=== PATIENT | male | born 1940 | race Caucasian/White ===

== ENCOUNTER → 2020-04-15 11:36 | Outpatient (CLI) | payer MEDICARE, OTHER, SELFPAY ==
--- NOTE | 2020-04-15 13:30 | STRESSREP ---
Stress Test Report Exercise stress test. 80-year-old male with a history of chest pain. Stress protocol: Resting EKG demonstrates sinus rhythm with a rate of 57 bpm and sinus arrhythmia. Resting blood pressure is 152/80 mmHg. The patient exercised according to regular Dev protocol for a total duration of 3 minutes and 10 seconds patient completed 10 seconds to stage II of the Dev protocol the maximum heart rate attained was 116 bpm which was 82% of max impacted heart rate the maximum workload was 4.8 metabolic equivalents. The test was terminated due to the patient not being able to keep up. The peak blood pressure was 178/82 mmHg which is a normal blood pressure response to exercise. Conclusion: Exercise stress test with no EKG criteria for ischemia at a low workload. The low workload may affect sensitivity for detection of ischemia. No arrhythmias noted.
== END ==
PROVIDERS: PCP Family Medicine; Referring Provider Family Medicine; Visit Provider Family Medicine
DX: R94.31 Abnormal electrocardiogram [ECG] [EKG] (principal); R00.1 Bradycardia, unspecified
CPT/HCPCS: 93017

== ENCOUNTER → 2021-11-26 | Outpatient (CLI) | payer MEDICARE, OTHER, SELFPAY ==
--- NOTE | 2021-11-26 13:02 | CT_ITS ---
STUDY: LOW DOSE CT LUNG CANCER SCREENING REASON FOR EXAM: Male, 81 years old. 65 pack-year history. RADIATION DOSAGE (If Supplied By Facility): CTDIvol = ( 2.01 ) mGy, DLP = ( 60.92 ) mGycm TECHNIQUE: No contrast was administered. Low dose technique was utilized (average mAS-38 and kVp 120). 1.25 mm axial source images with a slice interval of 1.25-mm were reconstructed in lung windows. 2.5 mm axial source images with a slice interval of 2.5-mm were reconstructed in lung windows. 5.0 mm axial source images with a slice interval of 5.0-mm were reconstructed in soft tissue windows. COMPARISON: Chest, 09/24/2021. NODULES: Total lung nodules (excluding granulomas): 0 Emphysema: Diffuse emphysematous changes lungs. Endobronchial lesion: None Aorta: Atherosclerotic changes without aneurysm. CORONARY ARTERIES: Coronary artery calcification moderate Heart: Normal Pulmonary artery: Normal Mediastinal nodes: Subcentimeter nonspecific mediastinal lymphadenopathy. Other chest and abdominal findings: Degenerative changes of the thoracic spine. CT/Low Dose CT Lung Screening IMPRESSION: Lung-RADS category 1 - Continue annual screening with LDCT in 12 months. IMPORTANT NOTES FOR USE: ACR Lung-RADS Version 1.1 Assessment Categories Release Date: 2018 Category: Coded 0-4 bases on nodule(s) with highest degree of suspicion. Negative screen is defined as categories 1 and 2; a positive screen is defined as categories 3 and 4. Category 3 and 4A nodules that are unchanged on interval CT should be coded as category 2, and individuals returned to screening in 12 months. Category 4X: Category 3 or 4 nodules with additional imaging findings that increase the suspicion of lung cancer, such as spiculation, GGN that doubles in size in 1 year, enlarged lymph notes, etc. Category Modifiers: S (significant finding unrelated to lung cancer) Electronically Signed: Uriel Copeland DO at 21:14 EDT Reading Location ID and State: [address] [place] [address] Tel [phone], Service support ,
== END | disposition home or self-care (01) ==
PROVIDERS: PCP Internal Medicine; Referring Provider Internal Medicine; Visit Provider Internal Medicine
DX: Z87.891 Personal history of nicotine dependence (principal)
CPT/HCPCS: 71271

== ENCOUNTER → 2022-03-23 | Outpatient (CLI) | payer MEDICARE, OTHER, SELFPAY | END | disposition home or self-care (01) | LOC: PSN 11:55 | PROVIDERS: PCP Internal Medicine; Referring Provider Internal Medicine; Visit Provider Internal Medicine | DX: I49.9 Cardiac arrhythmia, unspecified (principal) | CPT/HCPCS: 93225; 93226 ==

== ENCOUNTER → 2023-01-23 | Outpatient (CLI) | payer MEDICARE, OTHER, SELFPAY ==
--- NOTE | 2023-01-24 10:47 | PFT ---
INTRODUCTION: The patient is an 82-year-old male who presents for pulmonary function studies secondary to a diagnosis of abnormal lung function. Respiratory therapy reported good patient effort. Bronchodilators were used during testing. INTERPRETATION: Forced expiration spirometry demonstrates no evidence of a large airways obstructive ventilatory defect. There was no significant response to aerosolized bronchodilators. Spirograms are of good quality and plateau normally. Body plethysmography was performed and revealed lung volumes to be within normal limits. Diffusing capacity by single breath CO is mildly reduced at 63% of predicted. IMPRESSION: Isolated mild reduction in diffusing capacity.
== END | disposition home or self-care (01) ==
PROVIDERS: PCP Internal Medicine; Referring Provider Internal Medicine; Visit Provider Internal Medicine
DX: R94.2 Abnormal results of pulmonary function studies (principal); R00.1 Bradycardia, unspecified
CPT/HCPCS: 93225; 93226; 94060; 94726; 94729

== ENCOUNTER → 2023-01-26 | Outpatient (CLI) | payer MEDICARE, OTHER, SELFPAY ==
--- NOTE | 2023-01-26 13:42 | CT_ITS ---
STUDY: LOW DOSE CT LUNG CANCER SCREENING REASON FOR EXAM: Male, 82 years old. Smoker. Patient smoked 1 pack per day for 60 years. RADIATION DOSAGE (If Supplied By Facility): CTDIvol = ( 3.02 ) mGy, DLP = ( 104.20 ) mGycm TECHNIQUE: No contrast was administered. Low dose technique was utilized (average mAS-38 and kVp 120). 1.25 mm axial source images with a slice interval of 1.25-mm were reconstructed in lung windows. 2.5 mm axial source images with a slice interval of 2.5-mm were reconstructed in lung windows. 5.0 mm axial source images with a slice interval of 5.0-mm were reconstructed in soft tissue windows. COMPARISON: Comparison is made with prior study done November 26, 2021. NODULES: No suspicious nodule is seen. Emphysema: Stable emphysematous changes. Endobronchial lesion: None Aorta: Atherosclerotic plaque formation. CORONARY ARTERIES: Coronary artery calcification is seen. Heart: Unremarkable Pulmonary artery: Mediastinal nodes: Small mediastinal lymph nodes. Other chest and abdominal findings: CT/Low Dose CT Lung Screening IMPRESSION: Lung-RADS category 2 - Continue annual screening with LDCT in 12 months. IMPORTANT NOTES FOR USE: ACR Lung-RADS Version 1.1 Assessment Categories Release Date: 2018 Category: Coded 0-4 bases on nodule(s) with highest degree of suspicion. Negative screen is defined as categories 1 and 2; a positive screen is defined as categories 3 and 4. Category 3 and 4A nodules that are unchanged on interval CT should be coded as category 2, and individuals returned to screening in 12 months. Category 4X: Category 3 or 4 nodules with additional imaging findings that increase the suspicion of lung cancer, such as spiculation, GGN that doubles in size in 1 year, enlarged lymph notes, etc. Category Modifiers: S (significant finding unrelated to lung cancer) Electronically Signed: Norbert Mednia MD at 15:07 EST ,
== END | disposition home or self-care (01) ==
PROVIDERS: PCP Internal Medicine; Referring Provider Internal Medicine; Visit Provider Internal Medicine
DX: R94.2 Abnormal results of pulmonary function studies (principal); R00.1 Bradycardia, unspecified; F17.210 Nicotine dependence, cigarettes, uncomplicated
CPT/HCPCS: 71271

== ENCOUNTER → 2023-04-05 | Outpatient (CLI) | payer MEDICARE, OTHER, SELFPAY ==
--- OUTSIDE RECORDS SUMMARY | 2023-04-05 07:21 | XMS RPT_ITS | CCD ---
Author Name Unknown Address [address] [place] [address] Organization [facility] Care Team Providers Care Rail Filler Name Role Phone Timmy Henderson MD Primary Care Provider Fast DO, Suzi A Unavailable Melly Glez CMA Unavailable Unavailable Unavailable Unavailable Fast DO, Suzi A Attending Unavailable Fast DO, Suzi A Consulting Unavailable Fast DO, Suzi A Unavailable Breanna Justice MA Unavailable Unavailable Timmy Henderson MD Primary Care Provider BRITTANY HALE Attending Unavailable TIMMY HENDERSON Referring Unavailab TIMMY Joe Primary Care Unavailab le BRITTANY HALE Attending Unavailable TIMMY HENDERSON Referring Unavailab le TIMMY HENDERSON Primary Care Unavailab le BRITTANY HALE Attending Unavailable TIMMY HENDERSON Referring Unavailab le TIMMY HENDERSON Primary Care Unavailab le TIMMY HENDERSON Primary Care Unavailab le TIMMY HENDERSON Referring Unavailab TIMMY Joe Primary Care Unavailab TIMMY Joe Attending Unavailab BRITTANY Sneed Attending Unavailable TIMMY HENDERSON Referring Unavailab le TIMMY HENDERSON Primary Care Unavailab le BRITTANY HALE Attending Unavailable TIMMY HENDERSON Referring Unavailab le TIMMY HENDERSON Primary Care Unavailab le Unavailable Unavailable Fast DO, Suzi A Primary Care Provider [phone] FAST, SUZI A Referring Unavailable FAST, SUZI A Primary Care Unavailable Allergies Allergy Classification Reported Allergen(s) Allergy Type Date of Onset Reaction(s) Facility (8 sources) Codeine; Translations: [CODEINE] Drug Allergy 11-19-2004 [facility] Work Phone: (20 sources) Penicillins; Translations: [Penicillins] Propensity to adverse reactions 11-19-2004 Hives [facility] Work Phone: Medications Current Medications Medication Drug Class(es) Dates Sig (Normalized) Sig (Original) tadalafil 5 mg oral tablet (15 sources) Phosphodiesterase 5 Inhibitor Start: 10-24-2022 take 1 tablet by mouth once daily Cialis 5 mg oral tablet 1 (one) Tablet qd for 0 days Quantity: 30 {Tablet} Refills: 3 Ordered: 24-Oct-2022 Fast DO, Suzi A Fast DO, Suzi A Start : 24-Oct-2022 Active Completed/Discontinued Medications Medication Drug Class(es) Dates Sig (Normalized) Sig (Original) atorvastatin 40 mg oral tablet (20 sources) HMG-CoA Reductase Inhibitor Start: 09-20-2022 take 1 tablet by mouth once daily atorvastatin 40 mg oral tablet 1 (one) Tablet qd for 90 days Quantity: 90 {Tablet} Refills: 3 Ordered: 20-Sep-2022 Fast DO, Suzi A Fast DO, Suzi A Start : 20-Sep-2022 Active Problems Active Problems Problem Classification Problem Date Documented Da te Episodic/Chronic Cardiac dysrhythmias (20 sources) Cardiac arrhythmia; Translations: [Arrhythmia] 11-17-2021 Chronic Past or Other Problems Problem Classification Problem Date Documented Da te Episodic/Chronic Gastrointestinal hemorrhage (7 sources) Hematochezia; Translations: [Melena] Onset: 10-30-2007 10-30-2007 Episodic Other and unspecified benign neoplasm (7 sources) Benign neoplasm of colon; Translations: [Benign neoplasm of colon, unspecified] Onset: 11-08-2007 02-08-2021 Episodic Other non-traumatic joint disorders (1 source) Pain in left hip; Translations: [Acute hip pain, left] Onset: 08-02-2021 Episodic Other skin disorders (7 sources) Sebaceous cyst of skin; Translations: [Sebaceous cyst] Onset: 04-21-2011 04-21-2011 Episodic Results Test Name Value Interpretation Reference Range Facil ity Vital Signs Date Time Vital Sign Value Performing Clinician Facility 09-20-2022 09:59-0400 Body height 166.37 cm Suzi Gomez Fast DO Work Phone: [facility] Work Phone: 09-20-2022 09:59-0400 Body mass index (BMI) [Ratio] 28.35 kg/m2 Suzi Patricia Fast DO Work Phone: [facility] Work Phone: 09-20-2022 09:59-0400 Body surface area Derived from formula 1.87 m2 Suzi A Fast DO Work Phone: [facility] Work Phone: 09-20-2022 09:59-0400 Body temperature 97.9 [degF] Suzi Gomez Fast DO Work Phone: [facility] Work Phone: Encounters Encounter Date Encounter Type Care Provider Facility Start: 01-13-2023 End: 01-14-2023 ambulatory SUZI Patricia [facility] Start: 01-13-2023 End: 01-13-2023 Subsequent hospital visit by physician Calvin [address] Procedures Date Procedure Procedure Detail Performing Clinician Start: 01-13-2023 CT CARDIAC SCORING WO IV CONTRAST SUZI PEÑA Start: 01-13-2023 Ct heart no contrast quant eval coronry calcium Suzi Gomez Fast DO Work Phone: Start: 11-26-2021 End: 11-26-[address] Lung Screening Procedure Note: See Note; NOTES: [facility] Imaging Services [address] [place] [id number] Lung Screening MR#: [id number] Acct: [id number] Name: ORIANA BONILLA Rep #: [id number] : 1940 M 81 From: Uriel Copeland DO PCP: Dr. Suzi Peña DO Status: REG CLI Study: Low Dose CT Lung Screening Date of Exam: 11/26 Exam# [id number] Ordering Dr: Szui Peña DO STUDY: LOW DOSE CT LUNG CANCER SCREENING REASON FOR EXAM: Male, 81 years old. 65 pack-year history. RADIATION DOSAGE (If Supplied By Facility): CTDIvol = ( 2.01 ) mGy, DLP = ( 60.92 ) mGycm TECHNIQUE: No contrast was administered. Low dose technique was utilized (average mAS-38 and kVp 120). 1.25 mm axial source images with a slice interval of 1.25-mm were reconstructed in lung windows. 2.5 mm axial source images with a slice interval of 2.5-mm were reconstructed in lung windows. 5.0 mm axial source images with a slice interval of 5.0-mm were reconstructed in soft tissue windows. COMPARISON: Chest, 09/24/2021. NODULES: Total lung nodules (excluding granulomas): 0 Emphysema: Diffuse emphysematous changes lungs. Endobronchial lesion: None Aorta: Atherosclerotic changes without aneurysm. CORONARY ARTERIES: Coronary artery calcification moderate Heart: Normal Pulmonary artery: Normal Mediastinal nodes: Subcentimeter nonspecific mediastinal lymphadenopathy. Other chest and abdominal findings: Degenerative changes of the thoracic spine. CT/Low Dose CT Lung Screening IMPRESSION: Lung-RADS category 1 - Continue annual screening with LDCT in 12 months. IMPORTANT NOTES FOR USE: ACR Lung-RADS Version 1.1 Assessment Categories Release Date: 2018 Category: Coded 0-4 bases on nodule(s) with highest degree of suspicion. Negative screen is defined as categories 1 and 2; a positive screen is defined as categories 3 and 4. Category 3 and 4A nodules that are unchanged on interval CT should be coded as category 2, and individuals returned to screening in 12 months. Category 4X: Category 3 or 4 nodules with additional imaging findings that increase the suspicion of lung cancer, such as spiculation, GGN that doubles in size in 1 year, enlarged lymph notes, etc. Category Modifiers: S (significant finding unrelated to lung cancer) Electronically Signed: Uriel Copeland DO at 21:14 EDT Reading Location ID and State: [facility] / [place] Tel [phone], Service support , CC: Dr. Suzi Peña DO Truss Builder: Signed Suzi Peña DO Work Phone: Start: 09-24-2021 End: 09-24-2021 Chest PA and Lateral Procedure Note: See Note; NOTES: [facility] [address] [place] [address] Chest PA and Lateral MR#: [id number] Acct: [id number] Name: ORIANA BONILLA Rep #: [id number] : 1940 M 81 From: Radha Fernandez MD PCP: Dr. Tesfaye Henderson MD Status: DEP AMB Study: Chest PA and Lateral Date of Exam: 09/24/21 Exam# [id number] Ordering Dr: Suzi Peña DO STUDY: X-RAY CHEST REASON FOR EXAM: Male, 81 years old. COUGH TECHNIQUE: Frontal and lateral views of the chest. COMPARISON: None. FINDINGS: The lungs are hyperinflated. Normal size heart. Normal mediastinum and mary. Normal visualized pulmonary arteries. There is atherosclerotic calcification of the aortic arch with tortuosity. There are diffuse degenerative changes of the visualized thoracic spine. Normal visualized ribs, clavicles, and shoulders. There is no demonstrated abnormality of the visualized soft tissue structures of the upper abdomen. RAD/Chest PA and Lateral IMPRESSION: Hyperinflated lungs. Electronically Signed: Radha Fernandez MD at 14:25 EDT , CC: Dr. Tesfaye Henderson MD; Dr. Suzi Peña DO Truss Builder: Signed Suzi Peña DO Work Phone: Start: 04-04-2020 Adult depression screening assessment Timmy Henderson MD Work Phone: cataract surgery bilateral 2019- Dr Brett Gomez Fast DO Work Phone: cataract surgery bilateral 2019- Dr Brett Glez CMA cataract surgery bilateral 2019- Dr Brett Glez CMA cataract surgery bilateral 2019- Dr Brett Justice MA cataract surgery bilateral 2019- Dr Brett Glez CMA right carpal tunnel release Suzi Gomez Fast DO Work Phone: right carpal tunnel release Melly Manchak CLINICAL DATA MANAGEMENT MANAGER right carpal tunnel release Melly Manchak CLINICAL DATA MANAGEMENT MANAGER right carpal tunnel release Breanna Justice MA right carpal tunnel release Melly Manchak CLINICAL DATA MANAGEMENT MANAGER Plan of Treatment Date Care Activity Detail Author Start: 03-08-2028 Urine microalbumin profile DTAP,TDAP,TD (2 - Td or Tdap) [facility] Start: 04-12-2024 DIABETES SCREEN DIABETES SCREEN [facility] Start: 10-14-2022 Influenza vaccination [facility] Start: 09-20-2022 Procedure Education Eprescribed prescriptions (G8553) [facility] Work Phone: Start: 09-20-2022 Urnls dip stick/tablet reagent auto microscopy URINALYSIS, W/ MICRO (12097) [facility]; [facility] Work Phone: Start: 09-20-2022 Blood count complete auto&auto difrntl wbc CBC W/AUTO DIFF WBC (80092) [facility]; [facility] Work Phone: Start: 09-20-2022 Comprehensive metabolic panel METABOLIC PANEL, COMPREHENSIVE (47607) [facility]; [facility] Work Phone: Start: 09-20-2022 Assay of prostate specific antigen total PSA (PROSTATE SPECIFIC ANTIGEN) (V76.44) [facility]; [facility] Work Phone: Start: 06-20-2022 Procedure Education Eprescribed prescriptions (G8553) [facility]; [facility] Work Phone: Start: 06-20-2022 Assay of thyroid stimulating hormone tsh TSH (55269) [facility]; [facility] Work Phone: Start: 06-20-2022 C-reactive protein high sensitivity C-REACT PROT HIGH SENS(hsCRP) (38844) [facility]; [facility] Work Phone: Start: 06-20-2022 Lipid panel LIPID PANEL (37193) [facility] Work Phone: Start: 06-20-2022 Blood count complete auto&auto difrntl wbc CBC with auto diff (05858) [facility]; [facility] Work Phone: Start: 06-20-2022 Urine albumin quantitative MICROALBUMIN: CREATININE RATIO (11294) AND (92164) [facility]; [facility] Work Phone: Start: 06-20-2022 Comprehensive metabolic panel METABOLIC PANEL, COMPREHENSIVE (71150) [facility]; [facility] Work Phone: Start: 06-20-2022 Hemoglobin glycosylated a1c HGB A1C (70383) [facility]; [facility] Work Phone: Start: 03-10-2022 Hemoglobin glycosylated a1c HGB A1C (36511) [facility]; [facility] Work Phone: Start: 03-10-2022 Lipid panel LIPID PANEL (93660) [facility] Work Phone: Start: 03-10-2022 Urnls dip stick/tablet reagent auto microscopy URINALYSIS, W/ MICRO (01118) [facility]; [facility] Work Phone: Start: 03-10-2022 Blood count complete auto&auto difrntl wbc CBC W/AUTO DIFF WBC (28390) [facility]; [facility] Work Phone: Start: 03-10-2022 Comprehensive metabolic panel METABOLIC PANEL, COMPREHENSIVE (53763) [facility]; [facility] Work Phone: Start: 03-07-2022 Procedure Education Eprescribed prescriptions (G8553) [facility]; [facility] Work Phone: Start: 02-13-2022 ADVANCE DIRECTIVE DISCUSSION ADVANCE DIRECTIVE DISCUSSION [facility] Start: 02-13-2022 DEPRESSION ASSESSMENT DEPRESSION ASSESSMENT [facility] Start: 11-17-2021 Assay of free thyroxine T4, FREE (THYROXINE) (30753) [facility]; [facility] Work Phone: Start: 11-17-2021 Assay of triiodothyronine t3 free FREE TRIIDOTHYRONINE (T3) (86934) [facility]; [facility] Work Phone: Start: 11-17-2021 Assay of thyroid stimulating hormone tsh TSH (40032) [facility]; [facility] Work Phone: Start: 11-17-2021 Sedimentation rate rbc non-automated SED RATE ERYTHROCYTE (01225) [facility]; [facility] Work Phone: Start: 11-17-2021 C-reactive protein C-REACTIVE PROTEIN (88777) [facility]; [facility] Work Phone: Start: 11-17-2021 Procedure Education Eprescribed prescriptions (G8553) [facility]; [facility] Work Phone: Start: 10-14-2021 Influenza vaccination [facility] Start: 09-24-2021 Procedure Education Eprescribed prescriptions (G8553) [facility]; [facility] Work Phone: Start: 04-04-2021 Adult depression screening assessment DEPRESSION SCREENING [facility] Start: 02-13-2021 ADVANCE DIRECTIVE DISCUSSION ADVANCE DIRECTIVE DISCUSSION [facility] Start: 06-24-2011 Pneumococcal Vaccine: 65+ Years (2 - PCV) Pneumococcal Vaccine: 65+ Years (2 - PCV) [facility] Start: 06-24-2011 PNEUMOCOCCAL: 65+ (2 - PCV) PNEUMOCOCCAL: 65+ (2 - PCV) [facility] Start: 1991 SHINGRIX VACCINE (1 of 2) SHINGRIX VACCINE (1 of 2) [facility] Start: 1991 Zoster Vaccines (1 of 2) Zoster Vaccines (1 of 2) [facility] Start: 1963 DTaP/Tdap/Td Vaccines (1 - Tdap) DTaP/Tdap/Td Vaccines (1 - Tdap) [facility] Start: 1940 COVID-19 Vaccine (#1) COVID-19 Vaccine (#1) [facility] Start: 1940 Lipid panel Lipid Panel [facility] Start: 1940 Medicare Annual Wellness Visit Medicare Annual Wellness Visit (AWV) [facility] End: 01-13-2023 CT for calcium scoring WO contrast and CTA W contrast IV Heart and coronary arteries [facility] Service Area Work Phone: Immunizations Immunization Date Immunization Notes Care Provider Fa cili 06-23-2010 pneumococcal conjuga te vaccine, 13 valent Suzi Fast DO Work Phone: [facility]; [facility] Work Phone: Payers Date Payer Category Payer Private Health Insurance [employer]I [employer] MEDICARE SUPPLEMENT [id number] 2017-Present [phone] [address] [place] [address] Indemnity [id number] 2017 Private Health Insurance [id number] 2017 Private Health Insurance [employer]I MARAV[employer]A MEDICARE SUPPLEMENT [id number] 2017-Present [phone] [address] [place] [address] Indemnity [id number] 2006 Medicare MEDICARE MEDICAR E A AND B [id number] 2006-Present [phone] [address] [address] [place] [address] Medicare [id number] 2006 Medicare [id number] 2006 Medicare [id number] 1940 Unknown [id number] 1940 Unknown [id number] Unknown Social History Date Type Detail Facility Start: 03-16-1953 Tobacco smoking status NHIS Smokes tobacco daily [facility] Start: 03-16-1953 History of tobacco use Cigarette Smoker [facility] Start: 03-16-1953 History of tobacco use Pipe Smoker [facility] Start: 07-21-2021 Alcohol intake Current drinker of alcohol (finding) [facility] Start: 04-05-2020 History SDOH Alcohol Frequency 2 [facility] Start: 04-05-2020 History SDOH Alcohol Std Drinks 1 [facility] Start: 03-08-2018 History SDOH Alcohol Comment rarely [facility] Start: 04-05-2020 History SDOH Social Connections Phone 3 [facility] Start: 04-04-2020 Education 14 [facility] Start: 1940 Sex Assigned At Male [facility] Start: 07-11-2021 End: 01-13-2023 Exposure to SARS-CoV-2 (event) Not sure [facility] Alcohol Use: Alcohol Use: [facility] Work Phone: Start: 04-01-2019 Caffeine Use Caffeine Use [facility] Work Phone: Clinical Notes 07-21-2021 to 06-22-2022 Caitlin Holt MA - 06/22/2022 3:36 PM Prema Hale, PT - 09/07/2021 6:54 AM Prema Hale, PT - 08/31/2021 4:37 PM Prema Hale, PT - 08/18/2021 3:24 PM EDT Note Date & Type Note Facility 06-22-2022 Note HNO ID: [id number] Author: Caitlin Holt MA Service: ? Author Type: Meeting Facilitator Type: Progress Notes Filed: 06/22/2022 3:37 PM Note Text: POPULATION HEALTH NAVIGATION OUTREACH Action/FYI pcp field updated, found in care everywhere Patient Identified by Name and : NO Outreach Outcome/Action PCP field updated Did you use a PCP flex slot to schedule this appointment? N/A Reason for Outreach Attribution: Provider Off-boarding Payer: Payor: MEDICARE / Plan: MEDICARE A AND B / Product Type: Medicare / Care Gap Reviewed:: Annual Wellness visit Reminder: Reminder note to check Health Maintenance for items below Health Maintenance items due: SHINGRIX VACCINE(1 of 2) Never done PNEUMOCOCCAL: 65+(2 - PCV) due on 06/24/2011 ADVANCE DIRECTIVE DISCUSSION Never done DEPRESSION ASSESSMENT Never done Navigation Signature: Caitlin Holt MA June 22, 2022 3:36 PM [facility] 06-22-2022 History of Present illness Narrative POPULATION HEALTH NAVIGATION OUTREACH Action/ pcp field updated, found in care everywhere Patient Identified by Name and : NO Outreach Outcome/Action PCP field updated Did you use a PCP flex slot to schedule this appointment? N/A Reason for Outreach Attribution: Provider Off-boarding Payer: Payor: MEDICARE / Plan: MEDICARE A AND B / Product Type: Medicare / Care Gap Reviewed:: Annual Wellness visit Reminder: Reminder note to check Health Maintenance for items below Health Maintenance items due: SHINGRIX VACCINE(1 of 2) Never done PNEUMOCOCCAL: 65+(2 - PCV) due on 06/24/2011 ADVANCE DIRECTIVE DISCUSSION Never done DEPRESSION ASSESSMENT Never done Navigation Signature: Caitlin Holt MA June 22, 2022 3:36 PM documented in this encounter [facility] 06-22-2022 Note Patient Outreach (RANDELL TNAV) ORIANA BONILLA ([id number]) 1940 M Date Time Provider Department 06/22/22 CAITLIN HOLT During your visit today, we recorded the following information about you: Caitlin Holt MA 06/22/2022 3:37 PM Signed POPULATION HEALTH NAVIGATION OUTREACH Action/FYI pcp field updated, found in care everywhere Patient Identified by Name and : NO Outreach Outcome/Action PCP field updated Did you use a PCP flex slot to schedule this appointment? N/A Reason for Outreach Attribution: Provider Off-boarding Payer: Payor: MEDICARE / Plan: MEDICARE A AND B / Product Type: Medicare / Care Gap Reviewed:: Annual Wellness visit Reminder: Reminder note to check Health Maintenance for items below Health Maintenance items due: SHINGRIX VACCINE(1 of 2) Never done PNEUMOCOCCAL: 65+(2 - PCV) due on 06/24/2011 ADVANCE DIRECTIVE DISCUSSION Never done DEPRESSION ASSESSMENT Never done Navigation Signature: Caitlin Holt MA June 22, 2022 3:36 PM Allergies As of Date: 06/22/2022 Noted Allergy Reaction CODEINE 11/19/2004 Comments: flushed PENICILLINS 11/19/2004 4 - Hives Date Reviewed: 07/21/2021 Reviewed by: Ashlee Nicholas Ma - Fully Assessed Reason for Visit: Population Health Navigation Outreach [3910] Cmt: ACO No PCP list Prescriptions as of 06/22/2022 - glucosamine HCl/chondroitin conde (GLUCOSAMINE-CHONDROITIN ORAL) Take by mouth. - beta-carotene,A,-vits C,E/mins (EYE HEALTH ORAL) Take by mouth. [facility] - naproxen (NAPROSYN) 500 mg tablet Take 1 tablet by mouth twice daily as needed for pain. Take with food. - atorvastatin (LIPITOR) 40 mg tablet Take 1 tablet by mouth daily at bedtime. For cholesterol. - docosahexanoic acid/epa (FISH OIL ORAL) Take by mouth. - docusate sodium (STOOL SOFTENER ORAL) Take by mouth. - psyllium seed, with dextrose, (FIBER SUPPLEMENT ORAL) Take by mouth. Meds Comments as of 03/16/2018: Problem List As Of Date 06/22/2022 Noted Resolved MELENA, BLOOD IN STOOL [K92.1] 10/30/2007 Benign neoplasm of colon [D12.6] 11/08/2007 Sebaceous cyst [L72.3] 04/21/2011 Overweight (BMI 25.0-29.9) [E66.3] Hyperlipidemia [E78.5] Tobacco use [Z72.0] Acute hip pain, left [M25.552] 08/02/2021 09/07/2021 Encounter Status:Closed by CAITLIN OHLT on 06/22/22 [facility] 09-07-2021 Note HNO ID: [id number] Author: Brittany Hale, PT Service: ? Author Type: Physical Therapist Type: Progress Notes Filed: 09/07/2021 6:56 AM Note Text: Episode Visit Count: 5 Therapist That Will Oversee The Plan Of Care: Brittany Hale PT Start of Care Date: 08/02/21 Onset Date: 07/02/21 (has been off and on for 6 years) Plan of Care Certification Date: 08/02/21 Next Certification Due Date: 09/13/21 Patient Identified by Name and Date of : Yes [facility]ERAPY PHYSICAL THERAPY DISCONTINUANCE OF CARE PLAN OF CARE UPDATE: Assessment: Oriana Trip Bonilla is discontinued from Physical Therapy services due to goal achievement and maximal benefit.. Patient was seen for 5 visits from Start of Care Date: 08/02/21 to 09/07/2021 and treatment included: Therapeutic exercise, Self-prison management and Patient/Family/Caregiver Education. Goals for Episode of Care: created on 08/02/21 through 09/13/21 updated 09/06/21 [place] in home exercise program./ achieved Patient will decrease pain rating by 2 points to meet minimal clinical important difference for numeric pain rating scale./ achieved Patient will increase flexibility of hip flexor to WNL to improve mechanics and decrease pain. Perform sit to stand and walking with decreased report of symptoms/pain in 4 weeks./ achieved Increased strength of hip and core to improve overall hip mechanics / achieved Patient Goals: alleviate pain/ achieved SUBJECTIVE: Patient Reason for Visit: Pt notes that he has some pain in first couple of steps with walking. Still has pain if he walks alot. Usually pain lasts for awhile. Feels good when he goes to work. Pain: Pain Pain Level: 2 Pain Location: Hip - Left Description: Aching Frequency: Intermittent Post Treatment Pain Post Treatment Pain Level: No Change Post Treatment Pain Location: Hip - Left PROMIS Scales Higher is Better 04/04/2020 GH Physical - Score 50.8 GH Physical - Percentile 53 % GH Mental - Score Incomplete T-scores: mean of general population = 50. 5 points is clinically meaningfully difference Percentiles provide an indication of how the patient's score ranks in relation to the general population. Higher percentile rankings indicate better function/quality of life. 50th percentile is the average of the general population and indicates half of respondents had a worse score. T-scores: mean of general population = 50. 5 points is clinically meaningfully difference Percentiles provide an indication of how the patient's score ranks in relation to the general population. Higher percentile rankings indicate better function/quality of life. 50th percentile is the average of the general population and indicates half of respondents had a worse score. OBJECTIVE MEASURES WITH LEVEL OF FUNCTION: LE AROM L Hip Extension: 20 Degrees L Hip Flexion: 115 Degrees LE Flexibility L Hip Flexor Flexibility: 15 L IT Band Flexibility: mild tightness LE Strength Trunk Strength: 4+/5 L Hip Flexion (L2): 5/5 L Hip ABduction: 5/5 L Knee Extension (L3): 5/5 L Knee Flexion: 5/5 Functional Strength Functional Strength: pt able to complete stairs reciprocally Special Tests - Hip and Spine Adalberto's Test: (positive for tightness no pain) Gait Weight Bearing Status: FWB Gait Device: None Gait Observation: (no deviations) TREATMENT: Therapeutic Exercise: 1: standing hip flexor stretch ( gastroc stretch position) 15 sec hold x3 cues to step back with left for increased hip flexor stretch as needed 2: standing hip abduction left only 1x15 3: seated green rep band hip abduction 1x15 4: bridges 1x15 with TA 5: seated folded pillow hip adduction 1x15 6: standing hip flexion with knee extension 1x15 7: hooklying TA with marches 1x10 8: left step ups blue step 1x10 Skilled Intervention: Patient was educated in proper exercise technique and purpose for exercises. Skilled judgment was provided in selection of appropriate interventions. Correct performance of therapeutic exercises was facilitated with verbal and visual cuing. Home Exercise Program Assigned: 1: continue exs as tolerated Billing Therapeutic Exercise Treatment Minutes: 35 Total Treatment Time Minutes (timed/untimed): 35 Brittany Hale, PT [facility] 09-07-2021 History of Present illness Narrative Episode Visit Count: 5 Therapist That Will Oversee The Plan Of Care: Brittany Hale PT Start of Care Date: 08/02/21 Onset Date: 07/02/21 (has been off and on for 6 years) Plan of Care Certification Date: 08/02/21 Next Certification Due Date: 09/13/21 Patient Identified by Name and Date of : Yes REHABILITATION AND SPORTS THERAPY PHYSICAL THERAPY DISCONTINUANCE OF CARE PLAN OF CARE UPDATE: Assessment: Oriana Bonilla is discontinued from Physical Therapy services due to goal achievement and maximal benefit.. Patient was seen for 5 visits from Start of Care Date: 08/02/21 to 09/07/2021 and treatment included: Therapeutic exercise, Self-prison management and Patient/Family/Caregiver Education. Goals for Episode of Care: created on 08/02/21 through 09/13/21 updated 09/06/21 [place] in home exercise program./ achieved Patient will decrease pain rating by 2 points to meet minimal clinical important difference for numeric pain rating scale./ achieved Patient will increase flexibility of hip flexor to WNL to improve mechanics and decrease pain. Perform sit to stand and walking with decreased report of symptoms/pain in 4 weeks./ achieved Increased strength of hip and core to improve overall hip mechanics / achieved Patient Goals: alleviate pain/ achieved SUBJECTIVE: Patient Reason for Visit: Pt notes that he has some pain in first couple of steps with walking. Still has pain if he walks alot. Usually pain lasts for awhile. Feels good when he goes to work. Pain: Pain Pain Level: 2 Pain Location: Hip - Left Description: Aching Frequency: Intermittent Post Treatment Pain Post Treatment Pain Level: No Change Post Treatment Pain Location: Hip - Left PROMIS Scales Higher is Better 04/04/2020 GH Physical - Score 50.8 GH Physical - Percentile 53 % GH Mental - Score Incomplete T-scores: mean of general population = 50. 5 points is clinically meaningfully difference Percentiles provide an indication of how the patient's score ranks in relation to the general population. Higher percentile rankings indicate better function/quality of life. 50th percentile is the average of the general population and indicates half of respondents had a worse score. T-scores: mean of general population = 50. 5 points is clinically meaningfully difference Percentiles provide an indication of how the patient's score ranks in relation to the general population. Higher percentile rankings indicate better function/quality of life. 50th percentile is the average of the general population and indicates half of respondents had a worse score. OBJECTIVE MEASURES WITH LEVEL OF FUNCTION: LE AROM L Hip Extension: 20 Degrees L Hip Flexion: 115 Degrees LE Flexibility L Hip Flexor Flexibility: 15 L IT Band Flexibility: mild tightness LE Strength Trunk Strength: 4+/5 L Hip Flexion (L2): 5/5 L Hip ABduction: 5/5 L Knee Extension (L3): 5/5 L Knee Flexion: 5/5 Functional Strength Functional Strength: pt able to complete stairs reciprocally Special Tests - Hip and Spine Adalberto's Test: (positive for tightness no pain) Gait Weight Bearing Status: FWB Gait Device: None Gait Observation: (no deviations) TREATMENT: Therapeutic Exercise: 1: standing hip flexor stretch ( gastroc stretch position) 15 sec hold x3 cues to step back with left for increased hip flexor stretch as needed 2: standing hip abduction left only 1x15 3: seated green rep band hip abduction 1x15 4: bridges 1x15 with TA 5: seated folded pillow hip adduction 1x15 6: standing hip flexion with knee extension 1x15 7: hooklying TA with marches 1x10 8: left step ups blue step 1x10 Skilled Intervention: Patient was educated in proper exercise technique and purpose for exercises. Skilled judgment was provided in selection of appropriate interventions. Correct performance of therapeutic exercises was facilitated with verbal and visual cuing. Home Exercise Program Assigned: 1: continue exs as tolerated Billing Therapeutic Exercise Treatment Minutes: 35 Total Treatment Time Minutes (timed/untimed): 35 Brittany Hale PT documented in this encounter [facility] 08-31-2021 Note HNO ID: [id number] Author: Brittany Hale PT Service: ? Author Type: Physical Therapist Type: Progress Notes Filed: 08/31/2021 4:39 PM Note Text: Episode Visit Count: 4 Therapist That Will Oversee The Plan Of Care: Brittany Hale PT Start of Care Date: 08/02/21 Onset Date: 07/02/21 (has been off and on for 6 years) Plan of Care Certification Date: 08/02/21 Next Certification Due Date: 09/13/21 Patient Identified by Name and Date of : Yes REHABILITATION AND SPORTS THERAPY PHYSICAL THERAPY TREATMENT NOTE ASSESSMENT: Oriana Bonilla tolerated the session with no issues. He demonstrated improvements in stair climbing. . The patient will continue to benefit from ongoing skilled physical therapy to progress toward set goals. PLAN FOR NEXT VISIT: POC update SUBJECTIVE: Patient Reason for Visit: Pt notes that feels his hip is getting better. He notes that he has not had to take medication in the morning and has been doing ok. He has not had to take medication for about a week. Pain: Pain Pain Level: 2 Pain Location: Hip - Left Description: Aching Frequency: Intermittent Post Treatment Pain Post Treatment Pain Level: No Change Post Treatment Pain Location: Hip - Left OBJECTIVE MEASURES WITH LEVEL OF FUNCTION: TREATMENT: Therapeutic Exercise: 1: standing hip flexor stretch ( gastroc stretch position) 15 sec hold x3 2: standing hip abduction left only 1x15 3: seated green rep band hip abduction 1x15 4: bridges 1x15 with TA 5: seated folded pillow hip adduction 1x15 6: standing hip flexion with knee extension 1x10 7: hooklying TA with marches 1x10 8: left step ups blue step 1x10 Skilled Intervention: Patient was educated in proper exercise technique and purpose for exercises. Reviewed and educated patient on additions/changes for home exercise program . Skilled judgment was provided in selection of appropriate interventions. Correct performance of therapeutic exercises was facilitated with verbal and visual cuing. Home Exercise Program Assigned: 2: switch to green band for seated abduction Billing Therapeutic Exercise Treatment Minutes: 35 Total Treatment Time Minutes (timed/untimed): 35 Brittany Hale, PT [facility] 08-31-2021 History of Present illness Narrative Episode Visit Count: 4 Therapist That Will Oversee The Plan Of Care: Brittany Hale PT Start of Care Date: 08/02/21 Onset Date: 07/02/21 (has been off and on for 6 years) Plan of Care Certification Date: 08/02/21 Next Certification Due Date: 09/13/21 Patient Identified by Name and Date of : Yes REHABILITATION AND SPORTS THERAPY PHYSICAL THERAPY TREATMENT NOTE ASSESSMENT: Oriana Bonilla tolerated the session with no issues. He demonstrated improvements in stair climbing. . The patient will continue to benefit from ongoing skilled physical therapy to progress toward set goals. PLAN FOR NEXT VISIT: POC update SUBJECTIVE: Patient Reason for Visit: Pt notes that feels his hip is getting better. He notes that he has not had to take medication in the morning and has been doing ok. He has not had to take medication for about a week. Pain: Pain Pain Level: 2 Pain Location: Hip - Left Description: Aching Frequency: Intermittent Post Treatment Pain Post Treatment Pain Level: No Change Post Treatment Pain Location: Hip - Left OBJECTIVE MEASURES WITH LEVEL OF FUNCTION: TREATMENT: Therapeutic Exercise: 1: standing hip flexor stretch ( gastroc stretch position) 15 sec hold x3 2: standing hip abduction left only 1x15 3: seated green rep band hip abduction 1x15 4: bridges 1x15 with TA 5: seated folded pillow hip adduction 1x15 6: standing hip flexion with knee extension 1x10 7: hooklying TA with marches 1x10 8: left step ups blue step 1x10 Skilled Intervention: Patient was educated in proper exercise technique and purpose for exercises. Reviewed and educated patient on additions/changes for home exercise program . Skilled judgment was provided in selection of appropriate interventions. Correct performance of therapeutic exercises was facilitated with verbal and visual cuing. Home Exercise Program Assigned: 2: switch to green band for seated abduction Billing Therapeutic Exercise Treatment Minutes: 35 Total Treatment Time Minutes (timed/untimed): 35 Brittany Hale PT documented in this encounter [facility] 08-18-2021 Note HNO ID: [id number] Author: Brittany Hale PT Service: ? Author Type: Physical Therapist Type: Progress Notes Filed: 08/18/2021 3:26 PM Note Text: Episode Visit Count: 3 Therapist That Will Oversee The Plan Of Care: Brittany Hale PT Start of Care Date: 08/02/21 Onset Date: 07/02/21 (has been off and on for 6 years) Plan of Care Certification Date: 08/02/21 Next Certification Due Date: 09/13/21 Patient Identified by Name and Date of : Yes REHABILITATION AND SPORTS THERAPY PHYSICAL THERAPY TREATMENT NOTE ASSESSMENT: Oriana Bonilla tolerated the session with no issues. He demonstrated improvements in performance of exs and avoidance of pain with exs. . The patient will continue to benefit from ongoing skilled physical therapy to progress toward set goals and improve transfers into car, up steps etc. . PLAN FOR NEXT VISIT: additional progression of exs. SUBJECTIVE: Patient Reason for Visit: Pt notes he has trouble getting in car, going up and down steps . Pain: Pain Pain Level: 4 Pain Location: Hip - Left Description: Sharp Frequency: Continuous Post Treatment Pain Post Treatment Pain Level: No Change (0/10 pain as he was doing exs) Post Treatment Pain Location: Hip - Left Post Treatment Pain Description: Sharp Post Treatment Symptoms: intermittent OBJECTIVE MEASURES WITH LEVEL OF FUNCTION: weakness of left LE note with step up, slight pain on first rep TREATMENT: Therapeutic Exercise: 1: standing hip flexor stretch ( gastroc stretch position) 15 sec hold x3 2: standing hip abduction left only 1x15 3: seated orange rep band hip abduction 1x15 4: bridges 1x15 with TA 5: seated folded pillow hip adduction 1x15 6: standing hip flexion with knee extension 1x10 7: hooklying TA with marches 1x10 8: left step ups blue step 1x10 Skilled Intervention: Patient was educated in proper exercise technique and purpose for exercises. Reviewed and educated patient on additions/changes for home exercise program . Skilled judgment was provided in selection of appropriate interventions. Provided written instruction for home exercise program to facilitate proper performance and compliance. Correct performance of therapeutic exercises was facilitated with verbal and visual cuing. Patient education as noted. Home Exercise Program Assigned: 1: standing hip flexion with knee extension 1x10 2: hooklying TA with marches 1x10 3: left step ups blue step 1x10 Billing Therapeutic Exercise Treatment Minutes: 38 Total Treatment Time Minutes (timed/untimed): 38 Brittany Hale, PT [facility] 08-18-2021 History of Present illness Narrative Episode Visit Count: 3 Therapist That Will Oversee The Plan Of Care: Brittany Hale PT Start of Care Date: 08/02/21 Onset Date: 07/02/21 (has been off and on for 6 years) Plan of Care Certification Date: 08/02/21 Next Certification Due Date: 09/13/21 Patient Identified by Name and Date of : Yes REHABILITATION AND SPORTS THERAPY PHYSICAL THERAPY TREATMENT NOTE ASSESSMENT: Oriana Bonilla tolerated the session with no issues. He demonstrated improvements in performance of exs and avoidance of pain with exs. . The patient will continue to benefit from ongoing skilled physical therapy to progress toward set goals and improve transfers into car, up steps etc. . PLAN FOR NEXT VISIT: additional progression of exs. SUBJECTIVE: Patient Reason for Visit: Pt notes he has trouble getting in car, going up and down steps . Pain: Pain Pain Level: 4 Pain Location: Hip - Left Description: Sharp Frequency: Continuous Post Treatment Pain Post Treatment Pain Level: No Change (0/10 pain as he was doing exs) Post Treatment Pain Location: Hip - Left Post Treatment Pain Description: Sharp Post Treatment Symptoms: intermittent OBJECTIVE MEASURES WITH LEVEL OF FUNCTION: weakness of left LE note with step up, slight pain on first rep TREATMENT: Therapeutic Exercise: 1: standing hip flexor stretch ( gastroc stretch position) 15 sec hold x3 2: standing hip abduction left only 1x15 3: seated orange rep band hip abduction 1x15 4: bridges 1x15 with TA 5: seated folded pillow hip adduction 1x15 6: standing hip flexion with knee extension 1x10 7: hooklying TA with marches 1x10 8: left step ups blue step 1x10 Skilled Intervention: Patient was educated in proper exercise technique and purpose for exercises. Reviewed and educated patient on additions/changes for home exercise program . Skilled judgment was provided in selection of appropriate interventions. Provided written instruction for home exercise program to facilitate proper performance and compliance. Correct performance of therapeutic exercises was facilitated with verbal and visual cuing. Patient education as noted. Home Exercise Program Assigned: 1: standing hip flexion with knee extension 1x10 2: hooklying TA with marches 1x10 3: left step ups blue step 1x10 Billing Therapeutic Exercise Treatment Minutes: 38 Total Treatment Time Minutes (timed/untimed): 38 Brittany Hale PT documented in this encounter [facility] 08-09-2021 Note HNO ID: [id number] Author: Brittany Hale PT Service: ? Author Type: Physical Therapist Type: Progress Notes Filed: 08/09/2021 12:11 PM Note Text: Episode Visit Count: 2 Therapist That Will Oversee The Plan Of Care: Brittany Hale PT Start of Care Date: 08/02/21 Onset Date: 07/02/21 (has been off and on for 6 years) Plan of Care Certification Date: 08/02/21 Next Certification Due Date: 09/13/21 Patient Identified by Name and Date of : Yes REHABILITATION AND SPORTS THERAPY PHYSICAL THERAPY TREATMENT NOTE ASSESSMENT: Oriaan Bonilla tolerated the session with no issues. He demonstrated improvements in quality of exs and slightly improved ROM. The patient will continue to benefit from ongoing skilled physical therapy to progress toward set goals. PLAN FOR NEXT VISIT: will advacne reps of exs SUBJECTIVE: Patient Reason for Visit: Pt notes that he missed the exs yesterday but has done them and they felt ok. Pain: Pain Pain Level: 4 Pain Location: Hip - Left Description: Sharp Frequency: Continuous Post Treatment Pain Post Treatment Pain Level: Better Post Treatment Pain Location: Hip - Left OBJECTIVE MEASURES WITH LEVEL OF FUNCTION: Pt ambulates with no gait deviation, hip extension slightly improved with stretch TREATMENT: Therapeutic Exercise: 1: standing hip flexor stretch ( gastroc stretch position) 15 sec hold x3 2: standing hip abduction left only 1x10 3: seated orange rep band hip abduction 1x10 4: bridges 1x10 with TA 5: seated folded pillow hip adduction 1x10 Skilled Intervention: Patient was educated in proper exercise technique and purpose for exercises. Reviewed and educated patient on additions/changes for home exercise program . Skilled judgment was provided in selection of appropriate interventions. Provided written instruction for home exercise program to facilitate proper performance and compliance. Patient education as noted. Home Exercise Program Assigned: 1: bridges 1x10 with TA 2: seated folded pillow hip adduction 1x10 Billing Therapeutic Exercise Treatment Minutes: 25 Total Treatment Time Minutes (timed/untimed): 25 Brittany Hale, PT [facility] 08-09-2021 History of Present illness Narrative Episode Visit Count: 2 Therapist That Will Oversee The Plan Of Care: Brittany Hale PT Start of Care Date: 08/02/21 Onset Date: 07/02/21 (has been off and on for 6 years) Plan of Care Certification Date: 08/02/21 Next Certification Due Date: 09/13/21 Patient Identified by Name and Date of : Yes REHABILITATION AND SPORTS THERAPY PHYSICAL THERAPY TREATMENT NOTE ASSESSMENT: Oriana Bonilla tolerated the session with no issues. He demonstrated improvements in quality of exs and slightly improved ROM. The patient will continue to benefit from ongoing skilled physical therapy to progress toward set goals. PLAN FOR NEXT VISIT: will advacne reps of exs SUBJECTIVE: Patient Reason for Visit: Pt notes that he missed the exs yesterday but has done them and they felt ok. Pain: Pain Pain Level: 4 Pain Location: Hip - Left Description: Sharp Frequency: Continuous Post Treatment Pain Post Treatment Pain Level: Better Post Treatment Pain Location: Hip - Left OBJECTIVE MEASURES WITH LEVEL OF FUNCTION: Pt ambulates with no gait deviation, hip extension slightly improved with stretch TREATMENT: Therapeutic Exercise: 1: standing hip flexor stretch ( gastroc stretch position) 15 sec hold x3 2: standing hip abduction left only 1x10 3: seated orange rep band hip abduction 1x10 4: bridges 1x10 with TA 5: seated folded pillow hip adduction 1x10 Skilled Intervention: Patient was educated in proper exercise technique and purpose for exercises. Reviewed and educated patient on additions/changes for home exercise program . Skilled judgment was provided in selection of appropriate interventions. Provided written instruction for home exercise program to facilitate proper performance and compliance. Patient education as noted. Home Exercise Program Assigned: 1: bridges 1x10 with TA 2: seated folded pillow hip adduction 1x10 Billing Therapeutic Exercise Treatment Minutes: 25 Total Treatment Time Minutes (timed/untimed): 25 Brittany Hale PT documented in this encounter [facility] 08-02-2021 Note HNO ID: [id number] Author: Brittany Hale PT Service: ? Author Type: Physical Therapist Type: Progress Notes Filed: 08/02/2021 6:06 PM Note Text: Episode Visit Count: 1 Therapist That Will Oversee The Plan Of Care: Brittany Hale PT Start of Care Date: 08/02/21 Onset Date: 07/02/21 (has been off and on for 6 years) Plan of Care Certification Date: 08/02/21 Next Certification Due Date: 09/13/21 Patient Identified by Name and Date of : Yes REHABILITATION AND SPORTS THERAPY PHYSICAL THERAPY EVALUATION PLAN OF CARE: Assessment: Oriana Bonilla presents with diagnosis of acute left hip pain that interferes with walking;stair negotiation . He presents with impairments in flexibility, independence in exercise, overall function, range of motion and strength . . Prognosis for therapy is Good due to: current objective clinical presentation;good overall health status He will benefit from skilled therapy services to meet the goals established for this plan of care as noted below. Goals for Episode of Care: created on 08/02/21 through 09/13/21 [place] in home exercise program. Patient will decrease pain rating by 2 points to meet minimal clinical important difference for numeric pain rating scale. Patient will increase flexibility of hip flexor to WNL to improve mechanics and decrease pain. Perform sit to stand and walking with decreased report of symptoms/pain in 4 weeks. Increased strength of hip and core to improve overall hip mechanics Patient Goals: alleviate pain Planned Interventions, Frequency, and Duration: Current Frequency: 1x/week Duration: 4 weeks Total Number of Visits Planned: 4 Planned Treatment Interventions: Therapeutic exercise (65829);Neuromuscular re-education (37161);Manual therapy (76533);Therapeutic activities (56616);Self-prison management (02061);Gait Training (35272);Patient/Family/Caregiver Education PLAN FOR NEXT VISIT: Will assess response to exs. Add standing hip resisted exs if ready. Add Bridges Patient demonstrates good understanding of plan of care and treatment. The above goals and plan of care were discussed and agreed upon by patient/family. SUBJECTIVE: Oriana Bonilla is a 81 year old male seen today for Pt notes that he has pain in the front with lifting leg up ( hip flexor area). Pt notes that he feels it on the side with walking. 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 Falls Interview: No positive findings with falls interview Pain: Pain Pain Level: 5 (8/10) Pain Location: Hip - Left Description: Sharp;Aching Frequency: Continuous Post Treatment Pain Post Treatment Pain Level: No Change Post Treatment Pain Location: Hip - Left Post Treatment Pain Description: Aching;Sharp PROMIS Scales Higher is Better 04/04/2020 GH Physical - Score 50.8 GH Physical - Percentile 53 % GH Mental - Score Incomplete T-scores: mean of general population = 50. 5 points is clinically meaningfully difference Percentiles provide an indication of how the patient's score ranks in relation to the general population. Higher percentile rankings indicate better function/quality of life. 50th percentile is the average of the general population and indicates half of respondents had a worse score. T-scores: mean of general population = 50. 5 points is clinically meaningfully difference Percentiles provide an indication of how the patient's score ranks in relation to the general population. Higher percentile rankings indicate better function/quality of life. 50th percentile is the average of the general population and indicates half of respondents had a worse score. OBJECTIVE MEASURES WITH LEVEL OF FUNCTION: Posture / Alignment Posture: Decreased lumbar lordosis LE AROM R Hip Flexion: 120 Degrees R Hip Internal Rotation: 23 Degrees R Hip External Rotation: 30 Degrees L Hip Flexion: 117 Degrees L Hip Internal Rotation: 25 Degrees L Hip External Rotation: 35 Degrees LE Flexibility Flexibility: Hip Flexor Flexibility;IT Band Flexibility R Hip Flexor Flexibility: WNL L Hip Flexor Flexibility: Moderate limitation 10-15 degrees available L IT Band Flexibility: mild tightness LE Strength Trunk Strength: 4/5 R Hip Flexion (L2): 5/5 R Hip ABduction: 5/5 R Hip Internal Rotation: 5/5 R Hip External Rotation: 5/5 L Hip Flexion (L2): 4+/5 L Hip ABduction: 5/5 L Hip Internal Rotation: 5/5 L Hip External Rotation: 5/5 (pain with resistance) L Knee Extension (L3): 5/5 L Knee Flexion: 5/5 Functional Strength Functional Streng (more content not included)... [facility] 08-02-2021 History of Present illness Narrative Episode Visit Count: 1 Therapist That Will Oversee The Plan Of Care: Brittany Hale PT Start of Care Date: 08/02/21 Onset Date: 07/02/21 (has been off and on for 6 years) Plan of Care Certification Date: 08/02/21 Next Certification Due Date: 09/13/21 Patient Identified by Name and Date of : Yes [facility]ER[facility] PHYSICAL THERAPY EVALUATION PLAN OF CARE: Assessment: Oriana Bonilla presents with diagnosis of acute left hip pain that interferes with walking;stair negotiation . He presents with impairments in flexibility, independence in exercise, overall function, range of motion and strength . . Prognosis for therapy is Good due to: current objective clinical presentation;good overall health status He will benefit from skilled therapy services to meet the goals established for this plan of care as noted below. Goals for Episode of Care: created on 08/02/21 through 09/13/21 [place] in home exercise program. Patient will decrease pain rating by 2 points to meet minimal clinical important difference for numeric pain rating scale. Patient will increase flexibility of hip flexor to WNL to improve mechanics and decrease pain. Perform sit to stand and walking with decreased report of symptoms/pain in 4 weeks. Increased strength of hip and core to improve overall hip mechanics Patient Goals: alleviate pain Planned Interventions, Frequency, and Duration: Current Frequency: 1x/week Duration: 4 weeks Total Number of Visits Planned: 4 Planned Treatment Interventions: Therapeutic exercise (79093);Neuromuscular re-education (89608);Manual therapy (70798);Therapeutic activities (24541);Self-prison management (45786);Gait Training (66215);Patient/Family/Caregiver Education PLAN FOR NEXT VISIT: Will assess response to exs. Add standing hip resisted exs if ready. Add Bridges Patient demonstrates good understanding of plan of care and treatment. The above goals and plan of care were discussed and agreed upon by patient/family. SUBJECTIVE: Oriana Bonilla is a 81 year old male seen today for Pt notes that he has pain in the front with lifting leg up ( hip flexor area). Pt notes that he feels it on the side with walking. Patient Goals: alleviate pain Functional Limitations: walking;stair negotiation Prior Level of Function: Independent without limitations Relevant History Employment: Retired Hobbies / Interests: [place] farm, mowing Home Environment Patient Lives With: Spouse Home Type: Multi-Level Entry To Home: Stairs;With Rail Tub/Shower Type: BR updatairs Intake Information: Prescription present Previous Treatment: NSAIDs Falls Interview: No positive findings with falls interview Pain: Pain Pain Level: 5 (8/10) Pain Location: Hip - Left Description: Sharp;Aching Frequency: Continuous Post Treatment Pain Post Treatment Pain Level: No Change Post Treatment Pain Location: Hip - Left Post Treatment Pain Description: Aching;Sharp PROMIS Scales Higher is Better 04/04/2020 GH Physical - Score 50.8 GH Physical - Percentile 53 % GH Mental - Score Incomplete T-scores: mean of general population = 50. 5 points is clinically meaningfully difference Percentiles provide an indication of how the patient's score ranks in relation to the general population. Higher percentile rankings indicate better function/quality of life. 50th percentile is the average of the general population and indicates half of respondents had a worse score. T-scores: mean of general population = 50. 5 points is clinically meaningfully difference Percentiles provide an indication of how the patient's score ranks in relation to the general population. Higher percentile rankings indicate better function/quality of life. 50th percentile is the average of the general population and indicates half of respondents had a worse score. OBJECTIVE MEASURES WITH LEVEL OF FUNCTION: Posture / Alignment Posture: Decreased lumbar lordosis LE AROM R Hip Flexion: 120 Degrees R Hip Internal Rotation: 23 Degrees R Hip External Rotation: 30 Degrees L Hip Flexion: 117 Degrees L Hip Internal Rotation: 25 Degrees L Hip External Rotation: 35 Degrees LE Flexibility Flexibility: Hip Flexor Flexibility;IT Band Flexibility R Hip Flexor Flexibility: WNL L Hip Flexor Flexibility: Moderate limitation 10-15 degrees available L IT Band Flexibility: mild tightness LE Strength Trunk Strength: 4/5 R Hip Flexion (L2): 5/5 R Hip ABduction: 5/5 R Hip Internal Rotation: 5/5 R Hip External Rotation: 5/5 L Hip Flexion (L2): 4+/5 L Hip ABduction: 5/5 L Hip Internal Rotation: 5/5 L Hip External Rotation: 5/5 (pain with resistance) L Knee Extension (L3): 5/5 L Knee Flexion: 5/5 Functional Strength Functional Strength: Pt notes only able to do stairs one at a time using right leg to advance Special Tests - Hip and Spine Hip and Spine Special Tests: Adalberto's Test Adalberto's Test: Left Positive Gait Weight Bearing Status: FWB Gait: Independent Gait Device: None Gait Deviations: General Deviations Gait Observation: no deviations notes, pain with first few steps then ok Education: Education Learning Preferences: Explanation;Demonstration;Perfor urban;Printed Materials Barriers: None Learning/educational needs: Home exercise program;Plan of Care Education Provided: Yes, see treatment interventions for education provided Education Provided To: Patient Education Mode/Type: Demonstration;Explanation/Discus justo;Literature/Printed Materials;Performance Response to Education/Teach Back: States/Identifies;Return Demonstration TREATMENT: PT Treatment Interventions: Therapeutic Exercise;Self-Halfway Management Evaluation Therapeutic Exercise: 1: standing hip flexor stretch ( gastroc stretch position) 15 sec hold x3 2: standing hip abduction left only 1x10 3: seated orange rep band hip abduction 1x10 4: pt to do exs 2x/day Skilled Intervention: Patient was educated in proper exercise technique and purpose for exercises. Skilled judgment was provided in selection of appropriate interventions. Provided written instruction for home exercise program to facilitate proper performance and compliance. Correct performance of therapeutic exercises was facilitated with verbal and visual cuing. Patient education as noted. Self-Halfway Management: 1: discussed neutral hip position for sitting as pt noted he tends to put hip in IR position which may be contributing to pain with attempts at standing and walking after sitting Skilled Intervention: Skilled judgment in the selection of proper modification for activity of daily living/home management based on clinical presentation, deficits, and needs. Home Exercise Program Assigned: 1: as outlined above Billing * Evaluation Low Complexity: 1 Unit Therapeutic Exercise Treatment Minutes: 20 Self-Care/Home Management Treatment Minutes: 5 Total Treatment Time Minutes (timed/untimed): 45 Brittany Hale PT documented in this encounter [facility] documented as of this encounter (statuses as of 09/07/2021) [facility]06-20-2022 History of Past illness Narrative* Problem Noted Date Resolved Date Acute hip pain, left 08/02/2021 09/07/2021 documented as of this encounter (statuses as of 06/23/2022) [facility]06-08-2022 NoteHNO ID: [id number] Author: RT Ang(Fay) Service: Nuclear Medicine Author Type: Technologist Type: Progress Notes Filed: 07/21/2021 11:04 AM Note Text: Radiology Service Progress Note PATIENT NAME: Oriana Bonilla DATE OF SERVICE: July 21, 2021 TIME: 10:51 AM PATIENT IDENTITY VERIFICATION COMPLETED USING TWO (2) IDENTIFIERS: Name and Date of confirmed by patient verbally. FALL SCREENING: Has the patient had 2 falls in the last year or 1 fall with injury or currently using an Ambulatory Assistive Device (Walker, Cane, Wheelchair, Crutches, etc.)? No PATIENT GENDER DATA: Male PATIENT RELEVANT IMPLANT DATA REVIEWED: Not Applicable RADIOLOGY DEPARTMENT: General X-ray: Exam(s) Completed: Pelvis X-Ray: Pelvis with Hip Left PERIPHERAL IV DATA: Not applicable SIGNED BY: RT Ang(R) July 21, 2021 10:48 [facility]06-08-2022 NoteHNO ID: [id number] Author: Timmy Henderson MD Service: ? Author Type: Physician Type: Progress Notes Filed: 07/24/2021 10:40 AM Note Text: Chief Complaint Patient presents with: Hip Pain: LT x 1 month HPI Oriana Bonilla is a 81 year old male who presents here today for Above Complaints.. Patient complaining of chronic left hip pain which has worse over the last month without fall or injury. Pain located on outside of his hip, described as intermittent sharp which occurs when he is going from sitting to standing. States that it almost feels like it is dislocated because when he stands up if he turns his hip inward the pain resolves. Denies feeling pop or click with this. Treating with glucosamine and ibuprofen OTC which does help some with his pain. Denies erythema, swelling, bruising. Past medical history, appointments, medications, allergies reviewed. Previous Medical History PAST MEDICAL HISTORY Diagnosis Date - Benign neoplasm of colon - Erectile dysfunction - Fatty liver disease, nonalcoholic - Hyperlipidemia - Overweight (BMI 25.0-29.9) - PMH - PAST MEDICAL HISTORY OF 1970 kidney stone - Tobacco use Previous Surgical History PAST SURGICAL HISTORY Procedure Laterality Date - CATARACT EXTRACTION HX Bilateral 2016 - COLONOSCOPY FLX DX W/COLLJ SPEC WHEN PFRMD 03/27/2018 Colonoscopy - COLSC FLX W/RMVL OF TUMOR POLYP LESION SNARE TQ 11/08/2007 45cm - PAST SURGICAL HISTORY OF 2001 nodule on voice box biopsy Family History FAMILY HISTORY Problem Relation Age of Onset - Cancer Mother smoker (colon?) - Cancer Father smoker (lung) - Coronary Artery Disease Other none - Diabetes Other none - Prostate Cancer Other none - No Known Problems Sister - No Known Problems Brother - No Known Problems Son - No Known Problems Son Patient Allergies ALLERGIES Allergen Reactions - Codeine flushed - Penicillins Hives Current Medications Current Outpatient Medications on File Prior to Visit Medication Sig - glucosamine HCl/chondroitin conde (GLUCOSAMINE-CHONDROITIN ORAL) Take by mouth. - beta-carotene,A,-vits C,E/mins (EYE HEALTH ORAL) Take by mouth. [facility] - atorvastatin (LIPITOR) 40 mg tablet Take 1 tablet by mouth daily at bedtime. For cholesterol. - docosahexanoic acid/epa (FISH OIL ORAL) Take by mouth. - docusate sodium (STOOL SOFTENER ORAL) Take by mouth. - psyllium seed, with dextrose, (FIBER SUPPLEMENT ORAL) Take by mouth. No current facility-administered medications on file prior to visit. Social History Social History Tobacco Use - Smoking status: Current Every Day Smoker Packs/day: 2.00 Years: 60.00 Pack years: 120.00 Types: Cigarettes, Pipe Start date: 03/16/1952 - Smokeless tobacco: Never Used - Tobacco comment: years Vaping Use - Vaping Use: Never used Substance Use Topics - Alcohol use: Yes Comment: rarely - Drug use: No Review of Symptoms REVIEW OF SYSTEMS See HPI EXAM: BP 138/80 Pulse 78 Resp 12 Wt 82.1 kg (181 lb) BMI 26.73 kg/m? General Appearance: Well appearing, alert, in no acute distress, well-hydrated, well nourished.. Skin: Skin color, texture, turgor normal, no suspicious rashes or lesions. HIP: Location: Right Redness: No. Warmth: No. Range of motion: WNL Tenderness over trochanteric bursa: No Pain with movement: Yes, internal and external rotation. Health Maintenance List SHINGRIX VACCINE(1 of 2) Never done PNEUMOCOCCAL: 65+(2 - PCV) due on 06/24/2011 ADVANCE DIRECTIVE DISCUSSION Never done DEPRESSION SCREENING due on 04/04/2021 INFLUENZA(Season Ended) due on 10/14/2021 DIABETES SCREEN due on 04/12/2024 DTAP,TDAP,TD(2 - Td or Tdap) due on 03/08/2028 COVID-19 VACCINE Discontinued ASSESSMENT/PLAN: 1. Acute hip pain, left - ICD9: 719.45, ICD10: M25.552 Suspect 2/2 OA. Will obtain xray. Start naproxen BID and discussed ice/heat, rest. F/u with PT. Red flags for re-assessment reviewed with patient in detail. - XR HIP GENERAL 3V PELV/AP/LAT LEFT - CONSULT TO PHYSICAL THERAPY Timmy Henderson [facility]06-08-2022 History of Present illness Narrative* Timmy Henderson MD - 07/21/2021 10:15 AM EDT Chief Complaint Patient presents with: Hip Pain: LT x 1 month HPI Oriana Bonilla is a 81 year old male who presents here today for Above Complaints.. Patient complaining of chronic left hip pain which has worse over the last month without fall or injury. Pain located on outside of his hip, described as intermittent sharp which occurs when he is going from sitting to standing. States that it almost feels like it is dislocated because when he stands up if he turns his hip inward the pain resolves. Denies feeling pop or click with this. Treating with glucosamine and ibuprofen OTC which does help some with his pain. Denies erythema, swelling, bruising. Past medical history, appointments, medications, allergies reviewed. Previous Medical History PAST MEDICAL HISTORY Diagnosis Date Benign neoplasm of colon Erectile dysfunction Fatty liver disease, nonalcoholic Hyperlipidemia Overweight (BMI 25.0-29.9) PMH - PAST MEDICAL HISTORY OF 1970 kidney stone Tobacco use Previous Surgical History PAST SURGICAL HISTORY Procedure Laterality Date CATARACT EXTRACTION HX Bilateral 2016 COLONOSCOPY FLX DX W/COLLJ SPEC WHEN PFRMD 03/27/2018 Colonoscopy COLSC FLX W/RMVL OF TUMOR POLYP LESION SNARE TQ 11/08/2007 45cm PAST SURGICAL HISTORY OF 2001 nodule on voice box biopsy Family History FAMILY HISTORY Problem Relation Age of Onset Cancer Mother smoker (colon?) Cancer Father smoker (lung) Coronary Artery Disease Other none Diabetes Other none Prostate Cancer Other none No Known Problems Sister No Known Problems Brother No Known Problems Son No Known Problems Son Patient Allergies ALLERGIES Allergen Reactions Codeine flushed Penicillins Hives Current Medications Current Outpatient Medications on File Prior to Visit Medication Sig glucosamine HCl/chondroitin conde (GLUCOSAMINE-CHONDROITIN ORAL) Take by mouth. beta-carotene,A,-vits C,E/mins (EYE HEALTH ORAL) Take by mouth. [facility] atorvastatin (LIPITOR) 40 mg tablet Take 1 tablet by mouth daily at bedtime. For cholesterol. docosahexanoic acid/epa (FISH OIL ORAL) Take by mouth. docusate sodium (STOOL SOFTENER ORAL) Take by mouth. psyllium seed, with dextrose, (FIBER SUPPLEMENT ORAL) Take by mouth. No current facility-administered medications on file prior to visit. Social History Social History Tobacco Use Smoking status: Current Every Day Smoker Packs/day: 2.00 Years: 60.00 Pack years: 120.00 Types: Cigarettes, Pipe Start date: 03/16/1952 Smokeless tobacco: Never Used Tobacco comment: years Vaping Use Vaping Use: Never used Substance Use Topics Alcohol use: Yes Comment: rarely Drug use: No Review of Symptoms REVIEW OF SYSTEMS See HPI EXAM: BP 138/80 Pulse 78 Resp 12 Wt 82.1 kg (181 lb) BMI 26.73 kg/m General Appearance: Well appearing, alert, in no acute distress, well-hydrated, well nourished.. Skin: Skin color, texture, turgor normal, no suspicious rashes or lesions. HIP: Location: Right Redness: No. Warmth: No. Range of motion: WNL Tenderness over trochanteric bursa: No Pain with movement: Yes, internal and external rotation. Health Maintenance List SHINGRIX VACCINE(1 of 2) Never done PNEUMOCOCCAL: 65+(2 - PCV) due on 06/24/2011 ADVANCE DIRECTIVE DISCUSSION Never done DEPRESSION SCREENING due on 04/04/2021 INFLUENZA(Season Ended) due on 10/14/2021 DIABETES SCREEN due on 04/12/2024 DTAP,TDAP,TD(2 - Td or Tdap) due on 03/08/2028 COVID-19 VACCINE Discontinued ASSESSMENT/PLAN: 1. Acute hip pain, left - ICD9: 719.45, ICD10: M25.552 Suspect 2/2 OA. Will obtain xray. Start naproxen BID and discussed ice/heat, rest. F/u with PT. Redflags for re-assessment reviewed with patient in detail. - XR HIP GENERAL 3V PELV/AP/LAT LEFT - CONSULT TO PHYSICAL THERAPY [facility] Acute hip pain, left- Primary documented in this encounter [facility] note* Diagnosis [facility], left [facility] Diagnosis Acute hip pain, left- Primary documented in this encounter [facility] note* Diagnosis Acute hip pain, left- Primary documented in this encounter [facility] note* Diagnosis Acute hip pain, left- Primary documented in this encounter [facility] note* Diagnosis Acute hip pain, left- Primary documented in this encounter [facility] note* Diagnosis Atherosclerotic heart disease of [place] coronary artery without angina pectoris documented in this encounter [facility] Work Phone: Evaluation note* Diagnosis Atherosclerotic heart disease of [place] coronary artery without angina pectoris documented in this encounter [facility] Work Phone: Instructions* Name Dates Details Patient Instructions Indication:Elevated fasting blood sugar Start:24-Sep-2021 Instruction Type:Provider Instructions for Treatment How to Access Health Informa tion Online using Patient Portal and [employer] Apps Indication:Elevated fasting blood sugar Start:24-Sep-2021 Instruction Type:Patient Education [facility]; [facility] Work Phone: instructions* Name Dates Details Patient Instructions Indication:BMI 29.0-29.9,adult Start:17-Nov-2021 Instruction Type:Provider Instructions for Treatment How to Access Health Informa tion Online using Patient Portal and [employer] Apps Indication:BMI 29.0-29.9,adult Start:17-Nov-2021 Instruction Type:Patient Education Patient Instructions Indication:Elevated fasting blood sugar Start:24-Sep-2021 Instruction Type:Provider Instructions for Treatment How to Access Health Informa tion Online using Patient Portal and [employer] Apps Indication:Elevated fasting blood sugar Start:24-Sep-2021 Instruction Type:Patient Education [facility]; [facility] Work Phone: instructions* Name Dates Details Patient Instructions Indication:BMI 29.0-29.9,adult Start:17-Nov-2021 Instruction Type:Provider Instructions for Treatment How to Access Health Informa tion Online using Patient Portal and [employer] Apps Indication:BMI 29.0-29.9,adult Start:17-Nov-2021 Instruction Type:Patient Education Patient Instructions Indication:Elevated fasting blood sugar Start:24-Sep-2021 Instruction Type:Provider Instructions for Treatment How to Access Health Informa tion Online using Patient Portal and [employer] Apps Indication:Elevated fasting blood sugar Start:24-Sep-2021 Instruction Type:Patient Education [facility]; [facility] Work Phone: instructions* Name Dates Details Patient Instructions Indication:BMI 29.0-29.9,adult Start:17-Nov-2021 Instruction Type:Provider Instructions for Treatment How to Access Health Informa tion Online using Patient Portal and [employer] Apps Indication:BMI 29.0-29.9,adult Start:17-Nov-2021 Instruction Type:Patient Education Patient Instructions Indication:Elevated fasting blood sugar Start:24-Sep-2021 Instruction Type:Provider Instructions for Treatment How to Access Health Informa tion Online using Patient Portal and [employer] Apps Indication:Elevated fasting blood sugar Start:24-Sep-2021 Instruction Type:Patient Education [facility]; [facility] Work Phone: instructions* Name Dates Details Patient Instructions Indication:BMI 29.0-29.9,adult Start:17-Nov-2021 Instruction Type:Provider Instructions for Treatment How to Access Health Informa tion Online using Patient Portal and [employer] Apps Indication:BMI 29.0-29.9,adult Start:17-Nov-2021 Instruction Type:Patient Education Patient Instructions Indication:Elevated fasting blood sugar Start:24-Sep-2021 Instruction Type:Provider Instructions for Treatment How to Access Health Informa tion Online using Patient Portal and [employer] Apps Indication:Elevated fasting blood sugar Start:24-Sep-2021 Instruction Type:Patient Education [facility]; [facility] Work Phone: [email or web address]* Name Dates Details Patient Instructions Indication:BMI 29.0-29.9,adult Start:07-Mar-2022 Instruction Type:Provider Instructions for Treatment How to Access Health Informa tion Online using Patient Portal and [employer] Apps Indication:BMI 29.0-29.9,adult Start:07-Mar-2022 Instruction Type:Patient Education Patient Instructions Indication:BMI 29.0-29.9,adult Start:17-Nov-2021 Instruction Type:Provider Instructions for Treatment How to Access Health Informa tion Online using Patient Portal and [employer] Apps Indication:BMI 29.0-29.9,adult Start:17-Nov-2021 Instruction Type:Patient Education Patient Instructions Indication:Elevated fasting blood sugar Start:24-Sep-2021 Instruction Type:Provider Instructions for Treatment How to Access Health Informa tion Online using Patient Portal and [employer] Apps Indication:Elevated fasting blood sugar Start:24-Sep-2021 Instruction Type:Patient Education [facility]; [facility] Work Phone: instructions* Name Dates Details Patient Instructions Indication:BMI 29.0-29.9,adult Start:07-Mar-2022 Instruction Type:Provider Instructions for Treatment How to Access Health Informa tion Online using Patient Portal and [employer] Apps Indication:BMI 29.0-29.9,adult Start:07-Mar-2022 Instruction Type:Patient Education Patient Instructions Indication:BMI 29.0-29.9,adult Start:17-Nov-2021 Instruction Type:Provider Instructions for Treatment How to Access Health Informa tion Online using Patient Portal and [employer] Apps Indication:BMI 29.0-29.9,adult Start:17-Nov-2021 Instruction Type:Patient Education Patient Instructions Indication:Elevated fasting blood sugar Start:24-Sep-2021 Instruction Type:Provider Instructions for Treatment How to Access Health Informa tion Online using Patient Portal and [employer] Apps Indication:Elevated fasting blood sugar Start:24-Sep-2021 Instruction Type:Patient Education [facility]; [facility] Work Phone: [employer]* Name Dates Details Patient Instructions Indication:Smoker Start:20-Jun-2022 Instruction Type:Provider Instructions for Treatment How to Access Health Informa tion Online using Patient Portal and [employer] Apps Indication:Smoker Start:20-Jun-2022 Instruction Type:Patient Education Patient Instructions Indication:BMI 29.0-29.9,adult Start:07-Mar-2022 Instruction Type:Provider Instructions for Treatment How to Access Health Informa tion Online using Patient Portal and [employer] Apps Indication:BMI 29.0-29.9,adult Start:07-Mar-2022 Instruction Type:Patient Education Patient Instructions Indication:BMI 29.0-29.9,adult Start:17-Nov-2021 Instruction Type:Provider Instructions for Treatment How to Access Health Informa tion Online using Patient Portal and [employer] Apps Indication:BMI 29.0-29.9,adult Start:17-Nov-2021 Instruction Type:Patient Education Patient Instructions Indication:Elevated fasting blood sugar Start:24-Sep-2021 Instruction Type:Provider Instructions for Treatment How to Access Health Informa tion Online using Patient Portal and [employer] Apps Indication:Elevated fasting blood sugar Start:24-Sep-2021 Instruction Type:Patient Education [facility]; [facility] Work Phone: instructions* Name Dates Details Patient Instructions Indication:Impaired fasting blood sugar Start:20-Sep-2022 Instruction Type:Provider Instructions for Treatment How to Access Health Informa tion Online using Patient Portal and [employer] Apps Indication:Impaired fasting blood sugar Start:20-Sep-2022 Instruction Type:Patient Education Patient Instructions Indication:Smoker Start:20-Jun-2022 Instruction Type:Provider Instructions for Treatment How to Access Health Informa tion Online using Patient Portal and [employer] Apps Indication:Smoker Start:20-Jun-2022 Instruction Type:Patient Education Patient Instructions Indication:BMI 29.0-29.9,adult Start:07-Mar-2022 Instruction Type:Provider Instructions for Treatment How to Access Health Informa tion Online using Patient Portal and [employer] Apps Indication:BMI 29.0-29.9,adult Start:07-Mar-2022 Instruction Type:Patient Education Patient Instructions Indication:BMI 29.0-29.9,adult Start:17-Nov-2021 Instruction Type:Provider Instructions for Treatment How to Access Health Informa tion Online using Patient Portal and [employer] Apps Indication:BMI 29.0-29.9,adult Start:17-Nov-2021 Instruction Type:Patient Education Patient Instructions Indication:Elevated fasting blood sugar Start:24-Sep-2021 Instruction Type:Provider Instructions for Treatment How to Access Health Informa tion Online using Patient Portal and [employer] Apps Indication:Elevated fasting blood sugar Start:24-Sep-2021 Instruction Type:Patient Education [facility]; [facility] Work Phone: Instructions* Name Dates Details Patient Instructions Indication:Impaired fasting blood sugar Start:20-Sep-2022 Instruction Type:Provider Instructions for Treatment How to Access Health Informa tion Online using Patient Portal and [employer] Apps Indication:Impaired fasting blood sugar Start:20-Sep-2022 Instruction Type:Patient Education Patient Instructions Indication:Smoker Start:20-Jun-2022 Instruction Type:Provider Instructions for Treatment How to Access Health Informa tion Online using Patient Portal and [employer] Apps Indication:Smoker Start:20-Jun-2022 Instruction Type:Patient Education Patient Instructions Indication:BMI 29.0-29.9,adult Start:07-Mar-2022 Instruction Type:Provider Instructions for Treatment How to Access Health Informa tion Online using Patient Portal and [employer] Apps Indication:BMI 29.0-29.9,adult Start:07-Mar-2022 Instruction Type:Patient Education Patient Instructions Indication:BMI 29.0-29.9,adult Start:17-Nov-2021 Instruction Type:Provider Instructions for Treatment How to Access Health Informa tion Online using Patient Portal and [employer] Apps Indication:BMI 29.0-29.9,adult Start:17-Nov-2021 Instruction Type:Patient Education Patient Instructions Indication:Elevated fasting blood sugar Start:24-Sep-2021 Instruction Type:Provider Instructions for Treatment How to Access Health Informa tion Online using Patient Portal and [employer] Apps Indication:Elevated fasting blood sugar Start:24-Sep-2021 Instruction Type:Patient Education [facility]; [facility] Work Phone: Instructions* Name Dates Details Patient Instructions Indication:Impaired fasting blood sugar Start:20-Sep-2022 Instruction Type:Provider Instructions for Treatment How to Access Health Informa tion Online using Patient Portal and [employer] Indication:Impaired fasting blood sugar Start:20-Sep-2022 Instruction Type:Patient Education Patient Instructions Indication:Smoker Start:20-Jun-2022 Instruction Type:Provider Instructions for Treatment How to Access Health Informa tion Online using Patient Portal and [employer] Apps Indication:Smoker Start:20-Jun-2022 Instruction Type:Patient Education Patient Instructions Indication:BMI 29.0-29.9,adult Start:07-Mar-2022 Instruction Type:Provider Instructions for Treatment How to Access Health Informa tion Online using Patient Portal and [employer] Apps Indication:BMI 29.0-29.9,adult Start:07-Mar-2022 Instruction Type:Patient Education Patient Instructions Indication:BMI 29.0-29.9,adult Start:17-Nov-2021 Instruction Type:Provider Instructions for Treatment How to Access Health Informa tion Online using Patient Portal and [employer] Apps Indication:BMI 29.0-29.9,adult Start:17-Nov-2021 Instruction Type:Patient Education Patient Instructions Indication:Elevated fasting blood sugar Start:24-Sep-2021 Instruction Type:Provider Instructions for Treatment How to Access Health Informa tion Online using Patient Portal and [employer] Apps Indication:Elevated fasting blood sugar Start:24-Sep-2021 Instruction Type:Patient Education [facility]; [facility] Work Phone: Reason for Referral Specialty Diagnoses / Procedures Referred By Eliel garcia Referred To Contact [facility] Diagnoses Acute hip pain, left Procedures CONSULT TO PHYSICAL THERAPY PHYSICAL THERAPY EVALUATION HIGH COMPLEX 45 MINS Timmy Henderson MD [address] [place] [address] [facility] [address] [place] [address] Referral ID Status Reason Start Date Expiration Date Visits Requested Visits Authorized [id number] Authorized PCP Requested Referral Auto-Generate d Referral 07/21/2021 07/21/2022 99 99 Specialty Diagnoses / Procedures Referred By Contac t Referred To Contact XR IMAGING Diagnoses Acute hip pain, left Procedures XR HIP GENERAL 3V PELV/AP/LAT LEFT RADEX HIP UNILATERAL WITH PELVIS 2-3 VIEWS Timmy Henderson MD [address] [place] [address] Xr Imaging Referral ID Status Reason Start Date Expiration Date V isits Requested Visits Authorized [id number] Closed Auto-Generate d Referral 07/21/2021 08/20/2022 1 1 Specialty Diagnoses / Procedures Referred By Contac t Referred To Contact Radiology Diagnoses Atherosclerotic heart disease of [place] coronary artery without angina pectoris Procedures CT cardiac scoring wo IV contrast Suzi Peña DO [address] [facility] [address] [place] [address] Referral ID Status Reason Start Date Expiration Date Visits Requested Visits Authorized [id number] Authorized Perform Procedure 3 01/11/2024 1 1 Advance Directives No Advanced Directives Records FoundDocuments on File Type Date Recorded 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 Expiration date unspecified. Scanned Document is available upon request. Effective:30-Sep-2021 Name Dates Details Living Will - Effective on . Expiration date unspecified. Scanned Document is available upon request. Effective:30-Sep-2021 Name Dates Details Living Will - Effective on . Expiration date unspecified. Scanned Document is available upon request. Effective:30-Sep-2021 Name Dates Details Living Will - Effective on . Expiration date unspecified. Scanned Document is available upon request. Effective:30-Sep-2021 Name Dates Details Living Will - Effective on . Expiration date unspecified. Scanned Document is available upon request. Effective:30-Sep-2021 Name Dates Details Living Will - Effective on . Expiration date unspecified. Scanned Document is available upon request. 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 Expiration date unspecified. Scanned Document is available upon request. Effective:30-Sep-2021 Name Dates Details Living Will - Effective on . Expiration date unspecified. Scanned Document is available upon request. Effective:30-Sep-2021 Name Dates Details Living Will - Effective on . Expiration date unspecified. Scanned Document is available upon request. Effective:30-Sep-2021 Family History No Family History Records FoundUnknown Family Member Name Dates Details Brother 1 Comments:living- older broth er- Status:Active Brother 2 Comments:downs syndrome- dec eased at age 30-40 Status:Active Father Comments: at 59- some fo rm of metastatic cancer- Status:Active Mother Comments: in 80s- po ssible lung cancer Status:Active Sister 1 Comments:living 83 macular a nd arthritis- blood clot in lung/pneumonia Status:Active Unknown Family Member Name Dates Details Brother 1 Comments:living- older broth er- Status:Active Brother 2 Comments:downs syndrome- dec eased at age 30-40 Status:Active Father Comments: at 59- some fo rm of metastatic cancer- Status:Active Mother Comments: in 80s- po ssible lung cancer bowel cancer had colostomy- in her 60-70 age Status:Active Sister 1 Comments:living 83 macular a nd arthritis- blood clot in lung/pneumonia Status:Active Unknown Family Member Name Dates Details Brother 1 Comments:living- older broth er- Status:Active Brother 2 Comments:downs syndrome- dec eased at age 30-40 Status:Active Father Comments: at 59- some fo rm of metastatic cancer- Status:Active Mother Comments: in 80s- po ssible lung cancer bowel cancer had colostomy- in her 60-70 age Status:Active Sister 1 Comments:living 83 macular a nd arthritis- blood clot in lung/pneumonia Status:Active Unknown Family Member Name Dates Details Brother 1 Comments:living- older broth er- Status:Active Brother 2 Comments:downs syndrome- dec eased at age 30-40 Status:Active Father Comments: at 59- some fo rm of metastatic cancer- Status:Active Mother Comments: in 80s- po ssible lung cancer bowel cancer had colostomy- in her 60-70 age Status:Active Sister 1 Comments:living 83 macular a nd arthritis- blood clot in lung/pneumonia Status:Active Unknown Family Member Name Dates Details Brother 1 Comments:living- older broth er- Status:Active Brother 2 Comments:downs syndrome- dec eased at age 30-40 Status:Active Father Comments: at 59- some fo rm of metastatic cancer- Status:Active Mother Comments: in 80s- po ssible lung cancer bowel cancer had colostomy- in her 60-70 age Status:Active Sister 1 Comments:living 83 macular a nd arthritis- blood clot in lung/pneumonia Status:Active Unknown Family Member Name Dates Details Brother 1 Comments:living- older broth er- Status:Active Brother 2 Comments:downs syndrome- dec eased at age 30-40 Status:Active Father Comments: at 59- some fo rm of metastatic cancer- Status:Active Mother Comments: in 80s- po ssible lung cancer bowel cancer had colostomy- in her 60-70 age Status:Active Sister 1 Comments:living 83 macular a nd arthritis- blood clot in lung/pneumonia Status:Active Unknown Family Member Name Dates Details Brother 1 Comments:living- older broth er- Status:Active Brother 2 Comments:downs syndrome- dec eased at age 30-40 Status:Active Father Comments: at 59- some fo rm of metastatic cancer- Status:Active Mother Comments: in 80s- po ssible lung cancer bowel cancer had colostomy- in her 60-70 age Status:Active Sister 1 Comments:living 83 macular a nd arthritis- blood clot in lung/pneumonia Status:Active Unknown Family Member Name Dates Details Brother 1 Comments:living- older broth er- Status:Active Brother 2 Comments:downs syndrome- dec eased at age 30-40 Status:Active Father Comments: at 59- some fo rm of metastatic cancer- Status:Active Mother Comments: in 80s- po ssible lung cancer bowel cancer had colostomy- in her 60-70 age Status:Active Sister 1 Comments:living 83 macular a nd arthritis- blood clot in lung/pneumonia Status:Active Unknown Family Member Name Dates Details Brother 1 Comments:living- older broth er- Status:Active Brother 2 Comments:downs syndrome- dec eased at age 30-40 Status:Active Father Comments: at 59- some fo rm of metastatic cancer- Status:Active Mother Comments: in 80s- po ssible lung cancer bowel cancer had colostomy- in her 60-70 age Status:Active Sister 1 Comments:living 83 macular a nd arthritis- blood clot in lung/pneumonia Status:Active Unknown Family Member Name Dates Details Brother 1 Comments:living- older broth er- Status:Active Brother 2 Comments:downs syndrome- dec eased at age 30-40 Status:Active Father Comments: at 59- some fo rm of metastatic cancer- Status:Active Mother Comments: in 80s- po ssible lung cancer bowel cancer had colostomy- in her 60-70 age Status:Active Sister 1 Comments:living 83 macular a nd arthritis- blood clot in lung/pneumonia Status:Active Unknown Family Member Name Dates Details Brother 1 Comments:living- older broth er- Status:Active Brother 2 Comments:downs syndrome- dec eased at age 30-40 Status:Active Father Comments: at 59- some fo rm of metastatic cancer- Status:Active Mother Comments: in 80s- po ssible lung cancer bowel cancer had colostomy- in her 60-70 age Status:Active Sister 1 Comments:living 83 macular a nd arthritis- blood clot in lung/pneumonia Status:Active Unknown Family Member Name Dates Details Brother 1 Comments:living- older broth er- Status:Active Brother 2 Comments:downs syndrome- dec eased at age 30-40 Status:Active Father Comments: at 59- some fo rm of metastatic cancer- Status:Active Mother Comments: in 80s- po ssible lung cancer bowel cancer had colostomy- in her 60-70 age Status:Active Sister 1 Comments:living 83 macular a nd arthritis- blood clot in lung/pneumonia Status:Active Summary Purpose Additional Source Comments Source Comments (unrecognize d section and content) In the event this informatio n is protected by the Federal Confidentiality of Alcohol and Drug Abuse Patient Records regulations: The Federal rules restrict any use of the information to criminally investigate or prosecute any alcohol or drug abuse patient.[facility] the event this information is protected by the Federal Confidentiality of Alcohol and Drug Abuse Patient Records regulations: The Federal rules restrict any use of the information to criminally investigate or prosecute any alcohol or drug abuse patient.[facility] Center[facility] the event this information is protected by the Federal Confidentiality of Alcohol and Drug Abuse Patient Records regulations: The Federal rules restrict any use of the information to criminally investigate or prosecute any alcohol or drug abuse patient.[facility] the event this information is protected by the Federal Confidentiality of Alcohol and Drug Abuse Patient Records regulations: The Federal rules restrict any use of the information to criminally investigate or prosecute any alcohol or drug abuse patient.[facility] Center[facility] the event this information is protected by the Federal Confidentiality of Alcohol and Drug Abuse Patient Records regulations: The Federal rules restrict any use of the information to criminally investigate or prosecute any alcohol or drug abuse patient.[facility] Center[facility] the event this information is protected by the Federal Confidentiality of Alcohol and Drug Abuse Patient Records regulations: The Federal rules restrict any use of the information to criminally investigate or prosecute any alcohol or drug abuse patient.[facility] Center[facility] the event this information is protected by the Federal Confidentiality of Alcohol and Drug Abuse Patient Records regulations: The Federal rules restrict any use of the information to criminally investigate or prosecute any alcohol or drug abuse patient.[facility] Reason for Visit (unrecogniz ed section and content) Specialty Diagnoses / Procedures Referred By Contac t Referred To Contact [facility] Diagnoses Acute hip pain, left Procedures CONSULT TO PHYSICAL THERAPY PHYSICAL THERAPY EVALUATION HIGH COMPLEX 45 MINS Timmy Henderson MD [address] [place] [address] [facility] [address] [place] [address] Referral ID Status Reason Start Date Expiration Date Visits Requested Visits Authorized [id number] Authorized PCP Requested Referral Auto-Generate d Referral 07/21/2021 07/21/2022 99 99 Reason Comments Physical Therapy Reason Comments Hip Pain LT x 1 month Reason Comments PT Eval Patient Education Reason Onset Date Comments Population Health Navigation Outreach 06/22/2022 ACO No PCP list Specialty Diagnoses / Procedures Referred By Contac t Referred To Contact Radiology Diagnoses Atherosclerotic heart disease of [place] coronary artery without angina pectoris Procedures CT cardiac scoring wo IV contrast Suzi Peña DO [address] [facility] [address] [place] [address] Referral ID Status Reason Start Date Expiration Date Visits Requested Visits Authorized [id number] Authorized Perform Procedure 3 01/11/2024 1 1 Care Teams (unrecognized sec tion and content) Rail Filler Relationship Specialty Start Date End Date Timmy Henderson MD [address] [place], [place] [id number] [phone] PCP - General Family Practice 03/08/18 Rail Filler Relationship Specialty Start Date End Date Timmy Henderson MD [address] [place] [address] PCP - General Family Practice 03/08/18 Rail Filler Relationship Specialty Start Date End Date Timmy Henderson MD [address] [place] [address] PCP - General Family Practice 03/08/18 Rail Filler Relationship Specialty Start Date End Date Timmy Henderson MD [address] [place] [address] PCP - General Family Practice 03/08/18 Rail Filler Relationship Specialty Start Date End Date Timmy Henderson MD [address] [place], [place] [id number] PCP - General Family Practice 03/08/18 Rail Filler Relationship Specialty Start Date End Date Timmy Henderson MD [address] [facility], [place] [id number] PCP - General Family Medicine 06/22/22 Rail Filler Relationship Specialty Start Date End Date Suzi Peña DO [address] [facility] [address] [place], [place] [id number] PCP - General Internal Medicine 01/13/23 Rail Filler Relationship Specialty Start Date End Date Suzi Peña DO [address] [facility] [address] [place] [address] PCP - General Internal Medicine 01/13/23 (unrecognized sect ion and content) No Status Records FoundNo Status Records FoundNo Status Records Found INFORMATION SOURCE (unrecogn ized section and content) DATE CREATED AUTHOR AUTHOR'S ORGANIZ ATION 06/25/2022 [facility] DATE CREATED AUTHOR AUTHOR'S ORGANIZ ATION 01/20/2023 [facility] FOR RECORDS PERTAINING TO PATIENTS WHO ARE OR HAVE BEEN ENROLLED IN A CHEMICAL DEPENDENCY/SUBSTANCEABUSE PROGRAM, SOME INFORMATION MAY BE OMITTED. This clinical summary was aggregated from multiple sources. Caution should be exercised in using it in the provision of clinical care. This summary normalizes information from multiple sources, and as a consequence, information in this document may materially change the coding, format and clinical context of patient data. In addition, data may be omitted in some cases. CLINICAL DECISIONS SHOULD BE BASED ON THE PRIMARY CLINICAL RECORDS. [employer] provides no warranty or guarantee of the accuracy or completeness of information in this document.
--- NOTE | 2023-04-06 06:35 | STRESSREP ---
Stress Test Report Exercise myocardial perfusion stress test. 83-year-old man with a history of chest pain Stress protocol: Resting EKG demonstrates sinus bradycardia with a rate of 53 bpm resting blood pressure is 164/92 mmHg. The patient exercised according to the regular Dev protocol for a total duration of 4 minutes attaining a maximum heart rate of 137 bpm which was 99% of maximum predicted heart rate; the maximum workload was 7 metabolic equivalents. At rest there were no ST or T wave changes noted to suggest ischemia and at peak exercise upsloping ST changes only were noted which did not meet the criteria for ischemia. No clinical angina was noted the test was terminated due to the target heart rate being achieved/fatigue. The peak blood pressure was 202/82 mmHg. Rate-pressure product was 19,900. Myocardial perfusion protocol. 13.8 mCi of technetium 99m sestamibi was injected at rest. The patient exercised according to regular Dev protocol for total duration of 4 minutes and at peak exercise 42.4 mCi of technetium 99m sestamibi was injected stress images were obtained stress and rest images were reconstructed in comparing the short axis vertical long and horizontal long axis. Perfusion SPECT analysis: Review of the stress images demonstrate normal uptake of tracer noted in all areas of the myocardium. The resting images similarly demonstrate normal uptake of tracer noted in all areas of the myocardium. No areas of reversibility are noted to suggest ischemia no previous infarct was noted. Conclusion: Normal exercise myocardial perfusion stress test at a moderate workload
== END | disposition home or self-care (01) ==
PROVIDERS: PCP Internal Medicine; Referring Provider Internal Medicine; Visit Provider Internal Medicine
DX: I25.10 Atherosclerotic heart disease of native coronary artery without angina pectoris (principal)
CPT/HCPCS: 78452; 93017; A9500; A4216

== ENCOUNTER → 2023-05-02 | Outpatient (CLI) | payer MEDICARE, OTHER, SELFPAY ==
--- NOTE | 2023-05-02 12:54 | US_ITS ---
STUDY: THYROID ULTRASOUND REASON FOR EXAM: Male, 83 years old. Thyroid nodule. TECHNIQUE: Ultrasound evaluation of the thyroid was performed with real-time and static terry-scale imaging. COMPARISON: None. FINDINGS: RIGHT LOBE: The right lobe of the thyroid gland measures 3.9 cm x 1.4 cm x 1.9 cm. There is a homogeneous echotexture. There are multiple subcentimeter colloid cysts in the right lobe of the thyroid. LEFT LOBE: The left lobe of the thyroid gland measures 4.4 cm x 1.5 cm x 1.6 cm. There is a homogeneous echotexture. There are multiple subcentimeter colloid cysts. There is a 3 mm x 3 mm x 2 mm solid/cystic nodule in the superior pole. There is also evidence of a 5 mm x 4 mm x 4 mm hypoechoic solid nodule in the midpole. ISTHMUS: The isthmus measures 2.1 mm. The regional lymph nodes are normal. US/Thyroid IMPRESSION: Bilateral small colloid cysts. Solid and solid/cystic nodules seen in the left lobe as described. Correlation with nuclear medicine thyroid uptake and scan recommended. Electronically Signed: Norbert Medina MD at 11:24 EDT ,
== END | disposition home or self-care (01) ==
LOC: US 12:45
PROVIDERS: PCP Internal Medicine; Referring Provider Internal Medicine; Visit Provider Internal Medicine
DX: E04.1 Nontoxic single thyroid nodule (principal)
CPT/HCPCS: 76536

== ENCOUNTER → 2023-12-05 | Outpatient (CLI) | payer MEDICARE, OTHER, SELFPAY ==
--- NOTE | 2023-12-05 09:52 | CDU_ITS ---
Reason For Study: CAROTID STENOSIS Rt. Velocities/BP Lt. Velocities/BP Prox CCA 91.9/14.9 cm/sec. Prox CCA 89.7/19.3 cm/sec. Mid CCA 107.6/27.8 cm/sec. Mid CCA 80.9/24.8 cm/sec. Dist CCA 84.2/20.4 cm/sec. Dist CCA 78.7/22.6 cm/sec. Prox ICA 97.7/22.8 cm/sec. Prox ICA 73.6/25.7 cm/sec. Mid ICA 102.7/37.6 cm/sec. Mid ICA 100.2/30.2 cm/sec. Dist ICA 110.7/35.8 cm/sec. Dist ICA 103.9/33.9 cm/sec. Rt. ICA/CCA = 110.7/107.6=1.0. Lt. ICA/CCA = 103.9/80.9=1.3. Prox ECA 89.1/14.2 cm/sec. Prox ECA 96.9/13.4 cm/sec. Rt. Vert. 47.8/11.0 cm/sec. Lt. Vert. 36.3/14.5 cm/sec. Right Extracranial There is homogeneous, smooth atherosclerotic plaque noted in the right common carotid artery. There is heterogeneous, irregular atherosclerotic plaque noted in the right internal carotid artery. There is heterogeneous, irregular atherosclerotic plaque noted in the right external carotid artery. Antegrade flow is noted in the right vertebral artery. Left Extracranial There is homogeneous, smooth atherosclerotic plaque noted in the left common carotid artery. There is heterogeneous, irregular atherosclerotic plaque noted in the left internal carotid artery. There is heterogeneous, smooth atherosclerotic plaque noted in the left external carotid artery. Antegrade flow is noted in the left vertebral artery. Procedure Carotid Duplex [id number]. This is a Carotid Duplex examination using B-mode, color flow and specral Doppler. Exam performed in department. VL/Carotid Duplex Ultrasound Interpretation Summary Mild (<50%) stenosis right extracranial internal carotid. Mild (<50%) stenosis left extracranial internal carotid. Patent and antegrade vertebrals bilaterally. Ordering Physician: Suzi Lockwood Referring Physician: Suzi Lockwood Performed By: Lori Mccarthy, IRINEO, RVT
== END | disposition home or self-care (01) ==
PROVIDERS: PCP Internal Medicine; Referring Provider Internal Medicine; Visit Provider Internal Medicine
DX: I65.23 Occlusion and stenosis of bilateral carotid arteries (principal)
CPT/HCPCS: 93880

== ENCOUNTER → 2024-02-06 | Outpatient (CLI) | payer MEDICARE, OTHER, SELFPAY ==
--- NOTE | 2024-02-06 14:41 | CT_ITS ---
STUDY: LOW DOSE CT LUNG CANCER SCREENING REASON FOR EXAM: Male, 83 years old. SMOKER 1PPD X 65 YRS RADIATION DOSAGE (If Supplied By Facility): CTDIvol = ( 3.02 ) mGy, DLP = ( 109.10 ) mGycm TECHNIQUE: No contrast was administered. Low dose technique was utilized (average mAS-38 and kVp 120). 1.25 mm axial source images with a slice interval of 1.25-mm were reconstructed in lung windows. 2.5 mm axial source images with a slice interval of 2.5-mm were reconstructed in lung windows. 5.0 mm axial source images with a slice interval of 5.0-mm were reconstructed in soft tissue windows. COMPARISON: 01/26/2023 FINDINGS: Lung windows show the lungs to be normally expanded. No organized infiltrate, effusion, or suspicious noncalcified mass or nodule. Overall the lung teixeira show no significant interval change since the previous study. There is mild underlying emphysema. Limited soft tissues show normal-appearing thyroid gland. No suspicious adenopathy. There are physiologic subcentimeter in short axis dimension mediastinal lymph nodes. The thoracic aorta shows peripheral calcifications but tapers normally. There are calcified coronary vessels. Limited cuts of the upper abdomen do not show a suspicious abnormality. Bony structures show degenerative change CT/Low Dose CT Lung Screening IMPRESSION: Lung-RADS category 2 - Continue annual screening with LDCT in 12 months. IMPORTANT NOTES FOR USE: ACR Lung-RADS Version 1.1 Assessment Categories Release Date: 2018 Category: Coded 0-4 bases on nodule(s) with highest degree of suspicion. Negative screen is defined as categories 1 and 2; a positive screen is defined as categories 3 and 4. Category 3 and 4A nodules that are unchanged on interval CT should be coded as category 2, and individuals returned to screening in 12 months. Category 4X: Category 3 or 4 nodules with additional imaging findings that increase the suspicion of lung cancer, such as spiculation, GGN that doubles in size in 1 year, enlarged lymph notes, etc. Category Modifiers: S (significant finding unrelated to lung cancer) Electronically Signed: Todd Pham MD at 17:47 EST ,
== END | disposition home or self-care (01) ==
LOC: CT 14:38
PROVIDERS: PCP Internal Medicine; Referring Provider Internal Medicine; Visit Provider Internal Medicine
DX: Z12.2 Encounter for screening for malignant neoplasm of respiratory organs (principal); F17.210 Nicotine dependence, cigarettes, uncomplicated
CPT/HCPCS: 71271

== ENCOUNTER 2024-02-11 16:26 | Emergency (ER) | payer MEDICARE, OTHER, SELFPAY ==
[2024-02-11 16:27] VITALS: BP 177/100; PULSE 45; RESP 16; TEMP 36.7; O2SAT 100; BMI 26.6
--- NOTE | 2024-02-11 16:47 | EKG12_ITS ---
Test Reason : ARRYTH Blood Pressure : */* mmHG Vent. Rate : 49 BPM Atrial Rate : 49 BPM P-R Int : 150 ms QRS Dur : 88 ms QT Int : 458 ms P-R-T Axes : 80 54 59 degrees QTcB Int : 413 ms Sinus bradycardia with marked sinus arrhythmia Otherwise normal ECG Confirmed by SIN BROWN, GORDON ([id number]), senior editor EVERARDO WALDROP ([id number]) on 02/12/2024 10:47:24 AM Referred By: Confirmed By: GORDON VOGT MD
--- NOTE | 2024-02-11 16:47 | EDS_ITS ---
HPI History of Present Illness Chief Complaint: Dizziness [facility] Medical History (Updated 02/11/24 @ 19:[address] Jose G Cramer, DO) Hypercholesteremia Home Medications ?Medication ?Instructions ?Recorded ?Last Taken ?Type atorvastatin 40 mg tablet 40 mg PO DAILY 02/11/24 Unknown History cholecalciferol (vitamin D3) 25 25 mcg PO DAILY 02/11/24 Unknown History mcg (1,000 unit) capsule bwxhntjypvam-chvsihd-xfpuj acid 1 tab PO DAILY 02/11/24 Unknown History 400 mcg-lutein 250 mcg chewable tablet (Centrum Silver) omega-3 fatty acids 1,000 mg PO DAILY 02/11/24 Unknown History sennosides 8.6 mg-docusate sodium 1 tab-cap PO DAILY 02/11/24 Unknown History 50 mg tablet (2-in-1 Laxative) tadalafil 5 mg tablet 5 mg PO DAILY 02/11/24 Unknown History Allergy/AdvReac Type Severity Reaction Status Date / Time Penicillins Allergy Rash Verified 02/11/24 19:22 Sulfa (Sulfonamide Allergy Rash Verified 02/11/24 19:22 Antibiotics) codeine AdvReac NEEDS Verified 02/11/24 19:22 FOLLOW-UP Social History Smoking Status: Current every day smoker tobacco type: cigarettes EXAM Physical Exam Const Vital Signs: 02/11/24 16:27 02/11/24 16:51 02/11/24 17:27 Temperature 98.1 F Temperature Source Oral Pulse Rate 45 L 48 L Respiratory Rate 16 9 L Blood Pressure 177/100 H 149/77 H Blood Pressure Mean 125 101 Pulse Ox 100 100 Oxygen Delivery Method Room Air Room Air Room Air 02/11/24 18:00 02/11/24 19:00 02/11/24 20:00 Temperature Temperature Source Pulse Rate 44 L 42 L 55 L Respiratory Rate 14 16 17 Blood Pressure 161/70 H 155/80 H 147/79 H Blood Pressure Mean 100 105 101 Pulse Ox 95 99 98 Oxygen Delivery Method Room Air Room Air Room Air 02/11/24 20:11 Temperature 98.1 F Temperature Source Pulse Rate 52 L Respiratory Rate 17 Blood Pressure 147/79 H Blood Pressure Mean 101 Pulse Ox 99 Oxygen Delivery Method MDM MDM MDM Narrative Medical decision making narrative: HISTORY OF PRESENT ILLNESS: 83-year-old male presents with dizziness. He is accompanied by his . They state they noted the patient had a heart rate as low as 39 at home and a blood pressure of 128 systolic. This concerned the patient's so she brought him in for further evaluation. Patient notes there is no alleviate exacerbating features to his dizziness. Denies chest pain, palpitations, shortness of breath. Denies any recent illnesses. Denies any cough fever chills. Denies any leg swelling. Denies any medications that affect his heart rate including metoprolol. REVIEW OF SYSTEMS: Pertinent positives: Bradycardia, dizziness Pertinent negatives: As per HPI PHYSICAL EXAM: Nursing triage notes reviewed, Vital signs reviewed Constitutional: please see mdm HENT: MMM Eyes: Pupils equal round and reactive to light, Extraocular muscles intact Neck: No stridor, no JVD, full neck ROM Lungs: Clear to auscultation, No wheezing or rales. No increased work of breathing, no conversational dyspnea, no accessory muscle use, no nasal flaring. No respiratory distress noted Heart: Regular rate and rhythm, No murmurs, No rubs and No gallops, 2+ distal pulses (radial, femoral, posterior tibial) in all extremities Abdomen: Soft, there is no tenderness, rigidity, rebound or guarding, no obvious peritoneal signs, no palpable pulsatile abdominal masses, no auscultated abdominal bruit : No CVAT Extremities: No edema Neuro: Alert and oriented x3, neuro exam at baseline, cranial nerves II through XII are intact. No pain with extraocular muscle movement. There is negative test of skew. 5 of 5 strength in upper and lower extremities in flexion extension. Intact sensation to light touch in upper and lower extremity dermatomes. No truncal or extremity ataxia. No dysdiadochokinesia. Normal gait. 2+ reflexes in upper and lower extremities. No meningeal signs. Negative Babinski. NIH of 0. Skin: No rash or lesions noted MEDICAL DECISION MAKING: Chief Complaint: Dizziness External records reviewed: Reviewed prior cardiovascular testing, noted heart rate of 53 from stress test in March 2023. Reviewed Holter monitor report from 2022 minimum heart rate in the study was noted at 32 Factors affecting care: Hyperlipidemia Social determinants of health: none History obtained from others: none Consults: none [facility] Narrative: The patient was initially hypertensive, bradycardic initial heart rate of 45 (baseline HR in the 50s), otherwise afebrile and nontoxic-appearing. No focal cardiopulmonary abnormalities noted on initial exam. No focal neurologic deficits noted on exam. I considered the following differential diagnosis: Arrhythmia, anemia, electrolyte disturbance, ACS, posterior circulation CVA I considered posterior circulation CVA thought this diagnosis was less likely given lack of focal neurologic deficits, ataxia, nystagmus and a more possible explanation of bradycardia the potential etiology. I obtained a broad lab and imaging workup to further elucidate the etiology of t he patient's complaints. The patient was kept on telemetry. ALL IMAGES (IF OBTAINED) HAVE BEEN PERSONALLY REVIEWED AND INTERPRETED BY MYSELF. EKG with sinus bradycardia, normal MI interval, no sign of high degree block, no STEMI Repeat EKG shows sinus bradycardia rate of 45, normal axis, normal MI interval, no sign of complete heart block, no STEMI High-sensitivity troponin is negative, no evidence of myocardial ischemiax2 I have personally reviewed the patient's chest x-ray. Chest x-ray is unremarkable for pulmonary edema, pneumothorax, pneumonia or focal cardiopulmonary abnormality. CBC without leukocytosis, severe anemia, no thrombocytopenia. BMP without evidence of significant electrolyte abnormalities, no anion gap, no acute kidney injury. On reevaluation patient's vital signs improved blood pressure 155/80, heart rate remained low at 42 however he was asymptomatic. Discussed the case with the terrazzo layer helper on-call Dr. Ivory. Dr. Ivory recommended discharging with a Holter monitor. He reviewed the patient's EKG and agree the patient did not show signs of complete heart block or high degree block that required mission or pacemaker placement emergently. Recommended ED holter monitor placement and follow-up On reevaluation patient is asymptomatic in terms of dizziness. Heart rate is 52. . Patient was discharged with strict return precaution follow-up instructions and Holter monitor. The patient and/or family, caregivers express understanding. The patient and/or family, caregivers agrees with the plan. Shared decision making: I will have a discussion with the patient and or visitors regarding risk/benefits of further testing or admission. They will be made aware of of the risk/benefits inherent in this decision they will be given the opportunity to voice understanding. Total critical care time today provided was at least 0 minutes. This excludes separately billable procedures. Critical care time (if documented) is secondary to the patient having high probability of clinically significant/life threatening deterioration in the patient's condition which required my urgent intervention. Impression: 1. Dizziness 2. Bradycardia 3. History of hyperlipidemia Dispo: Discharge home This note was generated with Ovelin dictation software. It may contain incorrect words, spelling, and punctuation that were not noted in review of the chart p rior to signing. Lab Data Labs: Laboratory Results - last 24 hr 02/11/24 02/11/24 16:40 19:19 WBC 7.7 RBC 4.74 Hgb 14.1 Hct 42.9 MCV 90.5 MCH 29.7 MCHC 32.9 RDW Std Deviation 41.9 RDW Coeff of Javid 12.7 Plt Count 179 MPV 12.1 H Immature Gran % (Auto) 0.100 Neut % (Auto) 63.1 Lymph % (Auto) 22.9 [place] % (Auto) 9.9 Eos % (Auto) 3.1 Baso % (Auto) 0.9 Absolute Neuts (auto) 4.9 Absolute Lymphs (auto) 1.76 Nucleated RBC % 0 Sodium 136 Potassium 4.0 Chloride 107 Carbon Dioxide 26.0 Anion Gap 4 L BUN 15 Creatinine 0.87 Estim Creat Clear Calc 61.20 Est GFR (MDRD) Af Amer 108 Est GFR (MDRD) Non-Af 89 BUN/Creatinine Ratio 17.3 Glucose 122 H Calcium 9.2 Troponin I High Sens 7 7 Radiography Diagnostic Testing: Clinical Impression(s) from Imaging Studies Chest X-Ray 02/11/24 17:17 IMPRESSION: There are no acute findings. Electronically Signed: Bhupinder Carrillo MD at 17:35 EST Reading Location ID and State: [facility] / [place] , Service support , Discharge Plan Triage Chief Complaint: Dizziness ED Provider: Jose G Cramer Dx/Rx/DC Orders Instructions: ED Bradycardia Prescriptions: No Action atorvastatin 40 mg tablet 40 mg PO DAILY tadalafil 5 mg tablet 5 mg PO DAILY omega-3 fatty acids Capsule 1,000 mg PO DAILY Centrum Silver 400-250 mcg tablet,chewable 1 tab PO DAILY cholecalciferol (vitamin D3) 25 mcg (1,000 unit) capsule 25 mcg PO DAILY sennosides-docusate sodium [2-in-1 Laxative] 8.6-50 mg tablet 1 tab-cap PO DAILY Other Ambulatory Orders: Cardiac Holter Monitor, 48 Hrs (Routine) Timeframe: 1 Day Facility: [facility] - Location: Cardiovascular Services Ordered By: Dr. Jose G Cramer Primary Care Provider: Suzi Lockwood Referrals: Ankit Ivory MD [Med Staff - Active Staff] - Activity Restrictions/Additional Instructions: Thank you for trusting us with your care today! Your labs images were reassuring. I did consult cardiology who felt safe with you going home with a Holter monitor. Holter monitor has been ordered. Please follow-up with cardiology for results of Holter monitor test. Please return to the emergency department if your symptoms change or worsen. Please follow with your primary care physician for further outpatient evaluation and management. Print Language: Romanian Disposition Disposition: Home, Self Care
[2024-02-11 17:05] LABS: Absolute Lymphocyte Count 1.76 X10^3/uL (0.83-4.51); Absolute Neutrophil Count 4.9 X10^3/uL (2.0-7.7); Basophil# 0.07 X10^3/uL; Basophil% 0.9 % (0-1); Eosinophil# 0.24 X10^3/uL; Eosinophils% 3.1 % (0-5); Hematocrit 42.9 % (40-54); Hemoglobin 14.1 g/dL (13.0-16.5); Lymphocyte # 1.76 X10^3/ul (0.83-4.51); Lymphocyte % 22.9 % (19-41); Mean Corp Hgb Conc 32.9 g/dL (32-36); Mean Corpuscular Hgb 29.7 pg (27.0-32.0); Mean Corpuscular Volume 90.5 fL (80-94); Mean Platelet Vol. 12.1 fl (6.2-12.0); Monocyte# 0.76 X10^3/uL; Monocyte% 9.9 % (0-10); NRBC Flagged by Analyzer 0 % (0-5); Neutrophil # 4.86 X10^3/uL (2.7-7.7); Neutrophil % 63.1 % (47-70); Platelet Count 179 K/mm3 (150-450); RBC Distribution Width CV 12.7 % (11.6-14.6); RBC Distribution Width SD 41.9 fl (35.1-43.9); Red Blood Count 4.74 M/mm3 (4.6-6.2); White Blood Count 7.7 K/mm3 (4.4-11.0)
--- NOTE | 2024-02-11 17:17 | RAD_ITS ---
STUDY: XR Chest 1 View 02/11/2024 5:13 PM REASON FOR EXAM: Male, 83 years old. chest pain COMPARISON: 8.12. TECHNIQUE: XR Chest 1 View FINDINGS: There is no demonstrated pleural abnormality. Normal heart size. Normal mediastinum. Normal mary. Prominent appearing increased interstitial lung markings. Normal visualized pulmonary arteries. There is atherosclerotic calcification of the aortic arch with tortuosity. There are diffuse degenerative changes of the visualized thoracic spine. There is degenerative osteoarthritis of the bilateral shoulders. There are no acute findings of the upper abdomen. RAD/Chest 1 View (Portable) IMPRESSION: There are no acute findings. Electronically Signed: Bhupinder Carrillo MD at 17:35 EST ,
[2024-02-11 17:23] LABS: Anion Gap 4 (5-15); BUN 15 mg/dL (7-18); BUN/Creat Ratio 17.3 RATIO (10-20); Calcium,Total 9.2 mg/dL (8.5-10.1); Chloride 107 mmol/L (98-107); Creatinine, Serum 0.87 mg/dL (0.70-1.30); EST Glomerular Filtration Rate 89 mL/min (>60); Est Glom Filt Rate - Afr Amer 108 mL/min (>60); Glucose 122 mg/dL (74-106); Sodium Level 136 mmol/L (136-145); Troponin-I HS (w/2H Reflex) 7 pg/mL (3.0-78.0)
[2024-02-11 17:27] VITALS: BP 149/77; PULSE 48; RESP 9; O2SAT 100
[2024-02-11 18:00] VITALS: BP 161/70; PULSE 44; RESP 14; O2SAT 95
--- NOTE | 2024-02-11 18:31 | EKG12_ITS ---
Test Reason : DYSRHYTHMIA Blood Pressure : */* mmHG Vent. Rate : 45 BPM Atrial Rate : 45 BPM P-R Int : 158 ms QRS Dur : 86 ms QT Int : 476 ms P-R-T Axes : 82 47 55 degrees QTcB Int : 411 ms Sinus bradycardia with marked sinus arrhythmia Otherwise normal ECG Confirmed by SIN BROWN, GORDON ([id number]), assistant film editor EVERARDO WALDROP ([id number]) on 02/12/2024 10:47:39 AM Referred By: BENTLEY Confirmed By: GORDON VOGT MD
[2024-02-11 19:00] VITALS: BP 155/80; PULSE 42; RESP 16; O2SAT 99
[2024-02-11 19:01] LABS: Reflex Troponin-HS? (from REC) Y
[2024-02-11 19:41] LABS: Troponin-I HS 7 pg/mL (3.0-78.0)
[2024-02-11 20:00] VITALS: BP 147/79; PULSE 55; RESP 17; O2SAT 98
[2024-02-11 20:11] VITALS: BP 147/79; PULSE 52; RESP 17; TEMP 36.7; O2SAT 99
== END 2024-02-11 20:46 | disposition home or self-care (01) ==
PROVIDERS: Emergency Provider Emergency Medicine; PCP Internal Medicine; Visit Provider Emergency Medicine
DX: R42 Dizziness and giddiness (principal); R00.1 Bradycardia, unspecified; E78.5 Hyperlipidemia, unspecified; F17.210 Nicotine dependence, cigarettes, uncomplicated; Z79.899 Other long term (current) drug therapy
CPT/HCPCS: 71045; 80048; 84484; 85025; 93005; 99284; A4216

== ENCOUNTER → 2024-02-11 | Outpatient (CLI) | payer MEDICARE, OTHER, SELFPAY | END | disposition home or self-care (01) | LOC: CVS 20:39 | PROVIDERS: PCP Internal Medicine; Visit Provider Emergency Medicine | DX: R00.1 Bradycardia, unspecified (principal) | CPT/HCPCS: 93225; 93226 ==

== ENCOUNTER → 2024-02-26 | Day surgery (SDC) | payer MEDICARE, OTHER, SELFPAY ==
[2024-02-23 09:36] VITALS: BMI 26.9
--- NOTE | 2024-02-26 11:41 | CL.IE_ITS ---
Patient: ORIANA BONILLA Study Date: 02/26/2024 Performing: Ankit Ivory MD : 1940 Age: 83 Gender: male PROCEDURES PERFORMED LP01-([id number])INSERTION OF LOOP RECORDER INDICATIONS Syncope PROCEDURE DETAILS The patient was brought to the Catheterization Lab in the postabsorptive nonsedated state. Informed consent was obtained prior to the procedure. Local anesthetic was given subcutaneously to the left upper chest area with Lidocaine 2%. Incision was made to the left upper chest. ICM Loop Recorder was inserted. The patient tolerated the procedure well. Estimated Blood Loss: 10 ml's IMPLANTED / EX-PLANTED DEVICES IMPLANTED DEVICE(S): ICM Loop Recorder - [place] Pilot: [employer], Model # ASSERT- IQ-EL + , Serial # [id number] DEVICE PARAMETERS CONCLUSIONS / RECOMMENDATIONS Device Conclusions: Successful implantation of a patient activated loop recorder. Device Recommendations: Follow up with Primary Care Physician PROCEDURE MEDICATIONS Versed 1 mg IV Oxygen: 2 L/min via nasal cannula Antibiotic given in appropriate timeframe. Clindamycin 900 mg IV 02/26/2024 11:17:18 Signed By Ankit Ivory MD On 02/26/2024 11:42:03 Ankit Ivory MD
== END | disposition home or self-care (01) ==
LOC: CLSP 09:35
PROVIDERS: PCP Internal Medicine; Referring Provider Internal Medicine Cardiovascular Disease; Visit Provider Internal Medicine Cardiovascular Disease
DX: R00.1 Bradycardia, unspecified (principal); J44.9 Chronic obstructive pulmonary disease, unspecified; I25.10 Atherosclerotic heart disease of native coronary artery without angina pectoris; E78.00 Pure hypercholesterolemia, unspecified; F17.210 Nicotine dependence, cigarettes, uncomplicated; Z79.82 Long term (current) use of aspirin; Z79.899 Other long term (current) drug therapy

== ENCOUNTER 2024-03-04 09:10 | Day surgery (SDC) | payer MEDICARE, OTHER, SELFPAY ==
[2024-03-01 11:39] VITALS: BMI 26.9
[2024-03-04] VITALS (9 sets, daily range): BP systolic 130–150; BP diastolic 48–82; PULSE 58–67; RESP 16; TEMP 36.3–36.6; O2SAT 94–99; BMI 26.2
[2024-03-04 09:19] LABS: Bacteria 0 SEEN /hpf (None Seen); Mucous, Urine 0 SEEN /hpf (<or=2+); Red Blood Cells-Urine 0 SEEN /hpf (0-5); Squamous Epithelial Cells - UA 0 SEEN /hpf (0-5)
[2024-03-04 09:35] LABS: Color, Urine Yellow (Yellow); Glucose, Dipstick Normal (Normal); Ketone-Dipstick Negative (Negative); Leukocyte Esterase-Dipstick 25 /ul (Negative); Nitrite-Dipstick Negative (Negative); Occult Blood-Urine 10 /ul (Negative); Protein-Dipstick 15 mg/dl (Negative); Urine Bilirubin Dipstick Negative (Negative); Urine Clarity Clear (Clear); Urine Urobilinogen Normal (Normal)
[2024-03-04 09:41] LABS: White Blood Cells 0-5 SEEN /hpf (0-5)
--- NOTE | 2024-03-04 13:40 | CL.IE_ITS ---
Patient: ORIANA BONILLA Study Date: 03/04/2024 Performing: Ankit Ivory MD : 1940 Age: 83 Gender: male PROCEDURES PERFORMED LP04-([id number])INITIAL PACER INSERT+DUAL LEADS LP02-([id number])REMOVAL OF LOOP RECORDER INDICATIONS Sinoatrial node dysfunction/Sick sinus syndrome PROCEDURE DETAILS The patient was brought to the Catheterization Lab in the postabsorptive nonsedated state. Informed consent was obtained prior to the procedure. Local anesthetic was given subcutaneously to the left upper chest area with Lidocaine 2%. Incision was made to the left upper chest. A peel-away sheath was inserted into the left subclavian vein. PPM ventricular lead was inserted / positioned to right ventricular apex. PPM ventricular lead testing performed. PPM ventricular lead testing performed. A peel-away sheath was inserted into the left subclavian vein. The wire was then removed. PPM atrial lead was inserted / positioned to the right atrial appendage. PPM atrial lead testing performed. The Atrial lead sutured in place with 2-0 Silk. The Ventricular PM lead sutured in place with 2-0 Silk. PPM generator was attached to the lead(s) and inserted into the pocket. Device pocket was irrigated with antibiotic, Clindamycin 900 mg.. Subcutaneous closure was completed with 3-0 Vicryl. Skin closure was completed with 4-0 Vicryl. Steri-strips applied to Lt chest area. Local anesthetic was given subcutaneously to the left upper chest area with Lidocaine 2%. Incision was made to the left upper chest. ICM Loop Recorder was removed. Steri-strips applied to Lt chest area. Instrument, sponge, and needle counts were noted to be normal. The patient tolerated the procedure well. Estimated Blood Loss: 10 ml's IMPLANTED / EX-PLANTED DEVICES IMPLANTED DEVICE(S): PPM Ventricular lead - Senior [employer] Developer: [employer], Model # Ingevity 7842 , Serial # [id number] PPM Atrial lead - Senior Informatica Developer: [employer], Model # Ingevity 7841 , Serial # [id number] PPM Generator - Senior Informatic[employer] Developer: [employer]ift, Model # Essentio L111 , Serial # [id number] DEVICE PARAMETERS ATRIAL LEAD PARAMETERS: P wave- 6.9 (mV) Current- 1.3 (mA) threshold- 0.8 (V) impedence- 610 (OHMS) VENTRICULAR LEAD PARAMETERS: R wave- 14.2 (mV) Current- 1.1 (mA) threshold- 1.0 (V) impedence- 906 (OHMS) DEVICE PARAMETERS: Mode- DDD Lower rate- 60 Upper rate- 130 CONCLUSIONS / RECOMMENDATIONS Device Conclusions: Successful implantation of a dual chamber pacemaker Device Recommendations: Follow up with Primary Care Physician PROCEDURE MEDICATIONS Fentanyl 50 mcg IV Versed 1 mg IV Versed 1 mg IV Oxygen: 2 L/min via nasal cannula Antibiotic given in appropriate timeframe. Clindamycin 900 mg IV 03/04/2024 11:41:58 Signed By Ankit Ivory MD On 03/04/2024 13:39:54 Ankit Ivory MD
[2024-03-04] MEDS: Acetaminophen 325 MG Tablet PO (20:36)
[2024-03-04] MEDS: Cephalexin 500 MG Capsule PO (20:36)
--- NOTE | 2024-03-05 05:15 | RAD_ITS ---
EXAM: XR CHEST, 2 VIEWS CLINICAL INDICATION: Post permanant ICD/Pacemaker -- inspiration/expiration. Arms Down. Wet read to MD TECHNIQUE: Frontal and lateral views of the chest. COMPARISON: Single view chest 02/11/2024 FINDINGS: LUNGS AND PLEURAL SPACES: Unremarkable. No consolidation or edema. No pneumothorax. No effusion. HEART: Unremarkable. Cardiac silhouette not enlarged. MEDIASTINUM: Central airways and mediastinal contour are unremarkable. BONES/JOINTS: Unremarkable. No acute fracture. SOFT TISSUES: Unremarkable. TUBES, LINES AND DEVICES: Left chest pacer with leads overlying the right atrium and right ventricle. RAD/Chest Insp/Exp 2 View IMPRESSION: Left chest pacer with leads overlying the right atrium and right ventricle. No pneumothorax identified. Electronically Signed: Bhupinder Najera MD at 7:39 EST ,
[2024-03-05 06:00] VITALS: BP 145/77; PULSE 60; RESP 16; TEMP 36.2; O2SAT 97
[2024-03-05] MEDS: Levothyroxine 25 MCG TABLET PO (06:07)
--- NOTE | 2024-03-05 08:30 | PN.CARD_ITS ---
Subjective Subjective Patient seen and evaluated. Doing well post implant. Objective Data Vital Signs: Vital Signs Temp Pulse Resp BP Pulse Ox O2 Del Method 97.1 F L 60 16 145/77 H 97 Room Air 03/05/24 06:00 03/05/24 06:00 03/05/24 06:00 03/05/24 06:00 03/05/24 06:00 03/05/24 06:00 Oxygen Delivery Method Room Air Weight: 172 lb 6.424 oz Body Mass Index (BMI) 26.2 Intake & Output: Intake and Output for Last 24 Hours 03/03/24 03/04/24 03/05/24 23:59 23:59 23:59 Intake Total 500 / 900 900 / 900 Output Total 200 / 850 1000 / 1000 Balance 300 / 50 -100 / -100 Lab / Micro Data Labs: Laboratory Results - last 24 hr 03/04/24 09:18: Urine Color Yellow, Urine Clarity Clear, Urine pH 7.0, Ur Specific [place] 1.010, Urine Protein 15 H, Urine Glucose (UA) Normal, Urine Ketones Negative, Urine Occult Blood 10 H, Urine Nitrite Negative, Urine Bilirubin Negative, Urine Urobilinogen Normal, Ur Leukocyte Esterase 25 H, Urine RBC 0 SEEN, Urine WBC 0-5 SEEN, Ur Squamous Epith Cells 0 SEEN, Urine Bacteria 0 SEEN, Urine Mucus 0 SEEN Cardiology Labs/Tests 03/04/24 09:18: Urine Color Yellow, Urine Clarity Clear, Urine pH 7.0, Ur Specific [place] 1.010, Urine Protein 15 H, Urine Glucose (UA) Normal, Urine Ketones Negative, Urine Occult Blood 10 H, Urine Nitrite Negative, Urine Bilirubin Negative, Urine Urobilinogen Normal, Ur Leukocyte Esterase 25 H, Urine RBC 0 SEEN, Urine WBC 0-5 SEEN Rhythm: EKG: ECHO: Stress Test: Cardiac Cath: PCI: CT Surgery: Holter monitor: EPS: PPM: CXR: Chest CT Scan: Radiography Diagnostic Testing: Radiology Impression Chest X-Ray 03/05/24 05:15 IMPRESSION: Left chest pacer with leads overlying the right atrium and right ventricle. No pneumothorax identified. Electronically Signed: Bhupinder Najera MD at 7:39 EST , Physical Exam Const alert, oriented x3 and no apparent distress General Appearance: cooperative HEENT hearing grossly normal bilaterally Head and Scalp: atraumatic Eyes EOMs intact bilaterally Neck General: normal visual inspection Chest inspection of chest normal and palpation of chest normal Resp normal respiratory effort Auscultation: clear to auscultation bilaterally Cardio regular rate, regular rhythm, S1 normal heart sound and S2 normal heart sound Jugular Venous Distention: JVD GI normal to inspection, nondistended, normoactive bowel sounds Extremity normal capillary refill and no pedal edema Peripheral Pulses: Yes pulses 2+ throughout and femoral pulses present Skin no rashes or lesions noted Neuro oriented x3 and CN's II-XII intact bilaterally Psych Appearance: grossly normal and appropriate Assessment & Plan Assessment/Plan (1) Sick sinus syndrome: PLAN: Patient has a history of sick sinus syndrome status post permanent pacemaker implantation yesterday. Pacemaker interrogation today demonstrates adequate functioning. Chest x-ray confirms appropriate positioning. Will not make any changes. Will discharge for outpatient follow-up.
--- NOTE | 2024-03-05 08:32 | DCINST_ITS ---
Discharge Instructions Diet Discharge Diet: No restrictions (as you feel able. No excessive stretching. No lifting your arm over your head (keep elbow below shoulder level) until seen for your pacemaker check. Do not lift your elbow away from your side until you are seen for your first visit. Keep the arm sling on if it helps remind you not to lift your arm.) DC O2, CPAP, BIPAP needs Home O2 Discharge instructions: No Dressing / Incision Discharge Activity: May Not Drive May shower in (days): 2 Additional Activity Instructions:: May shower or bathe on [day 3]. Do not scrub the incision or soak in the tub. Just wash with soap and let the water run over the incision. Gently pat dry with towel. Medications: Take your pain medication as directed. Refer to your discharge instruction sheet for a list of medications you are to take. Dressing / Incision Call your doctor if your incision/area has: Continuous Slow Oozing, Sudden Increased Bleeding, Increased Pain/ Swelling, Increased Redness, Foul Smelling Discharge and Swelling at the incision site Call your doctor if you observe: Fever of 101 or Higher, Shortness of breath, Dizziness, Fainting spells, Swelling in the ankles, Chest pain, Prolonged hiccupping and Increased palpitations (irregular heartbeat) Suture Line Care: Avoid Pulling/Pushing and Avoid Pinching/Bending Cleanse incision/area with: Do not get Incision Wet and Keep Dressing Clean & Dry Additional Dressing/Incision Instructions:: When dressing is removed, wash and dry incision. Keep covered with a light bandage if it is rubbing against your clothing. Do not cover the incision with an airtight bandage. Change the bandage daily. Do not remove steri strips. The strips will fall off on their own. Follow Up Care Please Follow Up With: Ankit Ivory MD When: Pacer follow-up on March 12 at 10:30 AM of the [facility] office. Test Results: Test results from this visit will be discussed in further detail at your follow- up appointment, if applicable. Discharge Plan Admission Attending Provider: Ankit Ivory Primary Care Provider: Suzi Lockwood Instructions Print Language: Emirati Discharge Orders/Prescriptions Prescriptions: No Action aspirin [Adult Low Dose Aspirin] 81 mg tablet,delayed release (DR/EC) 81 mg PO QDAY oytf-hyuepn-gyhvxgza-D3-C-Mn 500-400-667 mg-mg-unit capsule 1 cap PO DAILY ibuprofen 200 mg capsule 400 mg PO BID PRN (Reason: pain) atorvastatin 40 mg tablet 40 mg PO QHS tadalafil 5 mg tablet 5 mg PO DAILY PRN (Reason: sexual activity) omega-3 fatty acids Capsule 1,000 mg PO DAILY Centrum Silver 400-250 mcg tablet,chewable 1 tab PO DAILY cholecalciferol (vitamin D3) 25 mcg (1,000 unit) capsule 25 mcg PO DAILY sennosides-docusate sodium [2-in-1 Laxative] 8.6-50 mg tablet 1 tab-cap PO DAILY levothyroxine [Synthroid] 25 mcg tablet 25 mcg PO DAILY Referrals / Follow Up: Fast,Suzi, DO [Primary Care Provider] - Disposition Disposition (needs filled in before D/C Order can be placed): Home, Self Care
--- NOTE | 2024-03-05 09:44 | PHA.DC.MR.R ---
Pharmacy [place] Med Reconciliation Pharmacy Service has performed discharge medication reconciliation for this patient. The patient's discharge medication list was reviewed for discrepancies and discrepancies were resolved. Medications at Discharge Home Medications atorvastatin 40 mg tablet 40 mg PO QHS 02/11/24 cholecalciferol (vitamin D3) 25 mcg (1,000 unit) capsule 25 mcg PO DAILY 02/11/24 jjhhvkxzvdrm-jrmxedx-vhkzu acid 400 mcg-lutein 250 mcg chewable tablet (Centrum Silver) 1 tab PO DAILY 02/11/24 omega-3 fatty acids 1,000 mg PO DAILY 02/11/24 sennosides 8.6 mg-docusate sodium 50 mg tablet (2-in-1 Laxative) 1 tab-cap PO DAILY 02/11/24 tadalafil 5 mg tablet 5 mg PO DAILY PRN sexual activity 02/11/24 aspirin 81 mg tablet,delayed release (Adult Low Dose Aspirin) 81 mg PO QDAY 02/19/24 glucosamine 500 ar-rwxxwyttl-mlmifsep comp 400 mg-D3 667 unit-C-Mn cap 1 cap PO DAILY 02/19/24 ibuprofen 200 mg capsule 400 mg PO BID PRN pain 02/21/24 levothyroxine 25 mcg tablet (Synthroid) 25 mcg PO DAILY 03/04/24
--- NOTE | 2024-03-05 10:04 | CASEMGMT ---
Patient has order for discharge. RN CM in to discuss needs at discharge. Patient denies needs or help at discharge. Patient lives with . Patient had no further questions or concerns.
[2024-03-05 10:22] VITALS: BP 137/82; PULSE 59; RESP 16; TEMP 36.9; O2SAT 98
[2024-03-05] MEDS: Cephalexin 500 MG Capsule PO (10:30)
[2024-03-05] MEDS: Aspirin E.C. 81 MG Tablet PO (10:31)
== END 2024-03-05 08:33 | disposition home or self-care (01) ==
LOC: CLSP 09:16 → PCU 14:09
PROVIDERS: PCP Internal Medicine; Referring Provider Internal Medicine Cardiovascular Disease; Visit Provider Internal Medicine Cardiovascular Disease
DX: I49.5 Sick sinus syndrome (principal); J44.9 Chronic obstructive pulmonary disease, unspecified; I25.10 Atherosclerotic heart disease of native coronary artery without angina pectoris; E78.00 Pure hypercholesterolemia, unspecified; F17.210 Nicotine dependence, cigarettes, uncomplicated; Z79.82 Long term (current) use of aspirin; Z79.899 Other long term (current) drug therapy
CPT/HCPCS: 33208; 33286; 71046; 81001; 99152; 99153; C1894

== ENCOUNTER → 2024-06-06 | Outpatient (CLI) | payer MEDICARE, OTHER, SELFPAY ==
--- NOTE | 2024-06-06 12:22 | US_ITS ---
PROCEDURE: THYROID 06/06/2024 REASON FOR EXAM: THYROID TECHNIQUE: High-frequency thyroid ultrasound, including grayscale and color-flow images. REFERENCE LINKS: TI-RADS Chart: [email or web address] TI-RADS Calculator Tool with Reference Images: [email or web address] FINDINGS: Right thyroid lobe size: 4.0 x 1.8 x 1.2 cm Left thyroid lobe size: 4.2 x 1.6 x 1.2 cm Isthmus: 0.2 cm Background parenchymal echotexture is homogeneous. Nodules: Multiple tiny (less than 5 mm) hypoechoic and anechoic nodules consistent with adenomas and colloid cysts. US/Thyroid IMPRESSION: Multiple tiny adenomas and colloid cyst. RECOMMENDATION: Based on most suspicious nodule. Nodule size = largest diameter Only evaluate nodule if =>5 mm. Growth > 20% in 2 dimensions = worsening. Follow up to 4 nodules. Recommend biopsy for no more than 2 nodules. Reading Location: [id number]
== END | disposition home or self-care (01) ==
LOC: US 12:22
PROVIDERS: PCP Internal Medicine; Referring Provider Internal Medicine; Visit Provider Internal Medicine
DX: E04.1 Nontoxic single thyroid nodule (principal)
CPT/HCPCS: 76536

== ENCOUNTER → 2024-12-24 | Outpatient (CLI) | payer MEDICARE, OTHER, SELFPAY ==
--- NOTE | 2024-12-24 14:47 | CDU_ITS ---
Reason For Study Reason For Study: Bilateral Carotid Stenosis Rt. Velocities/BP Lt. Velocities/BP Prox CCA 74.3/13.8 cm/sec. Prox CCA 114.0/18.5 cm/sec. Mid CCA 87.5/13.8 cm/sec. Mid CCA 87.3/19.9 cm/sec. Dist CCA 82.0/16.0 cm/sec. Dist CCA 83.1/23.1 cm/sec. Prox ICA 55.9/17.5 cm/sec. Prox ICA 55.7/14.5 cm/sec. Mid ICA 65.5/20.4 cm/sec. Mid ICA 72.7/21.7 cm/sec. Dist ICA 45.3/15.6 cm/sec. Dist ICA 75.3/24.7 cm/sec. Rt. ICA/CCA = 0.7. Lt. ICA/CCA = 0.9. Prox ECA 101.4/10.6 cm/sec. Prox ECA 128.9/15.7 cm/sec. Rt. Vert. 37.2/11.0 cm/sec. Lt. Vert. 36.0/11.1 cm/sec. Right Extracranial There is homogeneous, smooth atherosclerotic plaque noted in the right common carotid artery. There is heterogeneous, irregular atherosclerotic plaque noted in the right internal carotid artery. There is heterogeneous, irregular atherosclerotic plaque noted in the right external carotid artery. Antegrade flow is noted in the right vertebral artery. Left Extracranial There is heterogeneous, irregular atherosclerotic plaque noted in the left common carotid artery. There is heterogeneous, irregular atherosclerotic plaque noted in the left internal carotid artery. There is heterogeneous, irregular atherosclerotic plaque noted in the left external carotid artery. Antegrade flow is noted in the left vertebral artery. Procedure Carotid Duplex 33578. This is a Carotid Duplex examination using B-mode, color flow and specral Doppler. The exam was diagnostic. Exam performed in department. VL/Carotid Duplex Ultrasound Interpretation Summary Mild (<50%) stenosis right extracranial internal carotid. Mild (<50%) stenosis left extracranial internal carotid. Flow within the vertebral arteries is antegrade bilaterally. Ordering Physician: Suzi Lockwood Referring Physician: Suzi Lockwood Performed By: Baldev Lopez RVT
--- OUTSIDE RECORDS SUMMARY | 2024-12-24 16:17 | XMS RPT_ITS | CCD ---
Author Organization [facility] Care Team Providers Care Freelance Copywriter Name Role Phone Timmy Henderson MD Primary Care Provider Fast DO, Tomas A Unavailable Melly Glez CMA Unavailable Unavailable Unavailable Unavailable Dr. Tesfaye Henderson Primary Care Provider Dr. Ankit Ivory Attending Provider Merari Peña DOa Patricia Attending Unavailable Fast DO, Tomas A Consulting Unavailable Fast DO, Tomas A Unavailable Breanna Justice MA Unavailable Unavailable Timmy Henderson MD Primary Care Provider BRITTANY HALE Attending Unavailable TIMMY HENDERSON Referring Unavailab TIMMY Joe Primary Care Unavailab le BRITTANY HALE Attending Unavailable TIMMY HENDERSON Referring Unavailab le TIMMY HENDERSON Primary Care Unavailab le BRITTANY HALE Attending Unavailable TIMMY HENDERSON Referring Unavailab le TIMMY HENDERSON Primary Care Unavailab TIMMY Joe Primary Care Unavailab le TIMMY HENDERSON Referring Unavailab le TIMMY HENDERSON Primary Care Unavailab TIMMY Joe Attending Unavailab le BRITTANY HALE Attending Unavailable TIMMY HENDERSON Referring Unavailab le TIMMY HENDERSON Primary Care Unavailab le BRITTANY HALE Attending Unavailable TIMMY HENDERSON Referring Unavailab le TIMMY HENDERSON Primary Care Unavailab le Unavailable Unavailable Fast DO, Tomas A Primary Care Provider [phone] Dr. Tomas Peña Primary Care Provider [phone] Fast, Dr. Archer Referring Provider Fast, Dr. Archer Other Provider Dr. Christiano Phillip Attending Provider Fast, Dr. Archer Primary Care Provider [phone] Fast, Dr. Archer Referring Provider [phone] Fast, Dr. Archer Other Provider Dr. Christiano Phillip Attending Provider Dianelys, Dr. Pham Attending Provider FAST, TOMAS A Referring Unavailable FAST, TOMAS A Primary Care Unavailable Beatriz BROWN, Timmy Camp Primary Care Provider Fast DO, Dr. Archer Primary Care Provider Dianelys BROWN, Dr. Pham Attending Provider Fast DO, Dr. Archer Attending Provider [phone] Fast DO, Dr. Archer Referring Provider [phone] Mariana Earl Attending Provider Fast, Tomas Primary Care Unavailable Dianelys, Ankit Attending Unavailable Fast, Tomas Primary Care Unavailable Dianelys, Ankit Attending Unavailable Fast, Tomas Referring Unavailable Fast, Tomas Primary Care Unavailable Dianelys, Trail Attending Unavailable Fast, Tomas Primary Care Unavailable Dianelys, Ankit Attending Unavailable Dianelys, Ankit Referring Unavailable Bela, Jose G Attending Unavailable Fast, Tomas Primary Care Unavailable Fast, Tomas Referring Unavailable Fast, Tomas Attending Unavailable Fast, Tomas Primary Care Unavailable Fast, Tomas Primary Care Unavailable Dianelys, Ankit Attending Unavailable Dianelys, Ankit Referring Unavailable Fast, Tomas Primary Care Unavailable Dianelys, Ankit Attending Unavailable Fast, Tomas Referring Unavailable Fast, Tomas Referring Unavailable Dayami Tay Attending Unavailable Fast, Tomas Primary Care Unavailable Dianelys, Trail Attending Unavailable Fast, Tomas Primary Care Unavailable Bela, Jose G Referring Unavailable Fast, Tomas Primary Care Unavailable Dianelys, Trail Attending Unavailable Dianelys, Ankit Referring Unavailable Fast, Tomas Primary Care Unavailable Dianelys, Ankit Attending Unavailable Dianelys, Trail Referring Unavailable Fast, Tomas Primary Care Unavailable Dianelys, Trail Attending Unavailable Fast, Tomas Primary Care Unavailable Dianelys, Ankit Attending Unavailable Dianelys, Trail Consulting Unavailable Dianelys, Trail Referring Unavailable Fast, Tomas Primary Care Unavailable Dianelys, Ankit Attending Unavailable Fast, Tomas Primary Care Unavailable Dianelys, Ankit Attending Unavailable Fast, Tomas Referring Unavailable Fast, Tomas Primary Care Unavailable Mariana Earl Attending Unavail able Fast, Tomas Primary Care Unavailable Dianelys, Ankit Attending Unavailable Fast, Tomas Referring Unavailable Fast, Tomas Attending Unavailable Fast, Tomas Primary Care Unavailable Bela, Jose G Attending Unavailable Fast, Tomas Primary Care Unavailable Fast, Tomas Primary Care Unavailable Dianelys, Ankit Attending Unavailable Fast, Tomas Attending Unavailable Fast, Tomas Primary Care Unavailable Fast, Tomas Referring Unavailable Dianelys, Trail Attending Unavailable Fast, Tomas Primary Care Unavailable Fast, Tomas Primary Care Unavailable Dianelys, Trail Attending Unavailable Fast, Tomas Referring Unavailable Allergies Allergy Classification Reported Allergen(s) Allergy Type Date of Onset Reaction(s) Facility (11 sources) Codeine; Translations: [CODEINE] Drug Allergy 5 [facility] Work Phone: (20 sources) Penicillins; Translations: [Penicillins] Propensity to adverse reactions 5 [facility] Work Phone: Comment on above: hives (5 sources) Penicillins Propensity to adverse reactions 5 [facility] Work Phone: (16 sources) Codeine/Codeine Derivatives; Translations: [Codeine/Codeine Derivatives] Allergy to substance (finding) [facility]; [facility] Work Phone: Comment on above: flushed/hives (1 source) ALLERGIES NOT ON FILE; Translations: [ALLERGIES NOT ON FILE] Propensity to adverse reactions (disorder) [facility] Repository (2 sources) Penicillins Allergy to substance 5 [facility] (2 sources) Sulfonamides (Antibiotic) Allergy to substance 5 [facility] (1 source) Codeine Drug Allergy 5 [facility] Repository (1 source) Penicillins Drug allergy (disorder) 5 [facility] Repository (1 source) Sulfonamides (Antibiotic) Drug allergy (disorder) 5 [facility] Repository Medications Current Medications Medication Drug Class(es) Dates Sig (Normalized) Sig (Original) aspirin 81 mg delayed release oral tablet (2 sources) Platelet Aggregation Inhibitor, Nonsteroidal Anti-inflammatory Drug Start: 02-19-2024 Aspirin (Adult Low Dose Aspirin) 81 mg tablet,delayed release (DR/EC) Active 81 mg PO daily February 19, 2024 1:00am beta-carotene,A,-v its C,E/mins (EYE HEALTH ORAL) (8 sources) beta-carotene,A, - vits C,E/mins (EYE HEALTH ORAL) Take by mouth. [facility] Active beta-carotene,A, -vits C,E/mins (EYE HEALTH ORAL) Take by mouth. [facility] 0 Active Comment on above: Take by mouth. [facility] docosahexanoic acid/epa (FIS H OIL ORAL) (8 sources) docosahexanoic a rufina/epa (FISH OIL ORAL) Take by mouth. Active docosahexanoic a rufina/epa (FISH OIL ORAL) Take by mouth. 0 Active Comment on above: Take by mouth. Docusate (8 sources) docusate sodium (STOOL SOFTENER ORAL) Take by mouth. Active docusate sodium (STOOL SOFTENER ORAL) Take by mouth. 0 Active Comment on above: Take by mouth. docusate sodium 50 mg / sennosides, jail 8.6 mg oral tablet (2 sources) Start: 02-11-2024 take 1 tablet by mouth once daily Sennosides-Docusate Sodium (2-In-1 Laxative) 8.6-50 mg tablet Active 1 NMA PO DAILY February 11, 2024 1:00am Uhmt-Uaitac-Mgszudcj-D 3-C-Mn 500-400-667 mg-mg-unit capsule (2 sources) Start: 02-19-2024 Xhaj-Vjwars-Zqugkjax- D3-C-Mn 500-400-667 mg-mg-unit capsule Active 1 NMA PO DAILY February 19, 2024 1:00am glucosamine HCl/chondroitin conde (GLUCOSAMINE-CHONDROIT IN ORAL) (8 sources) glucosamine HCl/chondroitin conde (GLUCOSAMINE-CHONDROI TIN ORAL) Take by mouth. Active glucosamine HCl/ chondroitin conde (GLUCOSAMINE-CHONDROITIN ORAL) Take by mouth. 0 Active Comment on above: Take by mouth. ibuprofen 200 mg oral capsule (2 sources) Nonsteroidal Anti-inflammatory Drug Start: 02-20-19 take 2 capsules by mouth twice daily as needed for pain Ibuprofen 200 mg capsule Active 400 mg PO TWICE A DAY as needed for pain February 21, 2024 1:00am levothyroxine sodium 0.025 mg oral tablet (2 sources) l-Thyroxine Start: 03-04-19 take 1 tablet by mouth once daily Levothyroxine (Levothyroxine 25 Mcg Tablet) 25 mcg tablet Active 25 ug PO DAILY March 04, 2024 1:00am Azhfpvxh-Lso-Bqgyd Acid-Lutein (Centrum Silver) 400-250 mcg tablet,chewable (2 sources) Start: 02-11-20 Hswsqyap-Mza-Ixwby Acid-Lutein (Centrum Silver) 400-250 mcg tablet,chewable Active 1 {tbl} PO DAILY February 11, 2024 1:00am naproxen 500 mg oral tablet (20 sources) Nonsteroidal Anti-inflammatory Drug Start: 07-22-19 take 1 tablet by mouth every twelve hours as needed naproxen (NAPROSYN) 500 mg tablet Take 1 tablet by mouth twice daily as needed for pain. Take with food. 60 tablet 07/21/2021 Active Comment on above: Take 1 tablet by mary th twice daily as needed for pain. Take with food. psyllium seed, with dextrose, (FIBER SUPPLEMENT ORAL) (8 sources) psyllium seed, w ith dextrose, (FIBER SUPPLEMENT ORAL) Take by mouth. Active psyllium seed, w ith dextrose, (FIBER SUPPLEMENT ORAL) Take by mouth. 0 Active Comment on above: Take by mouth. tadalafil 5 mg oral tablet (17 sources) Phosphodiesterase 5 Inhibitor Start: take 1 tablet by mouth once daily as needed Tadalafil 5 mg tablet Active 5 mg PO DAILY as needed for sexual activity February 11, 2024 1:00am Start: 10-24-2022 take 1 tablet by mary th once daily Cialis 5 mg oral tablet 1 (one) Tablet qd for 0 days Quantity: 30 {Tablet} Refills: 3 Ordered: 24-Oct-2022 Fast DO, Tomas A Fast DO, Tomas A Start : 24-Oct-2022 Active Start: 09-20-2022 take 1 tablet by mary th once daily Cialis 5 mg oral tablet 1 (one) Tablet qd for 0 days Quantity: 30 {Tablet} Refills: 3 Ordered: 20-Sep-2022 Fast DO, Tomas A Fast DO, Tomas A Start : 20-Sep-2022 Active Start: 05-18-2022 take 1 tablet by mary th once daily Cialis 5 mg oral tablet 1 (one) Tablet qd for 0 days Quantity: 30 {Tablet} Refills: 3 Ordered: 18-May-2022 Fast DO, Tomas A Fast DO, Tomas A Start : 18-May-2022 Active Start: 03-07-2022 take 1 tablet by mary th once daily Cialis 5 mg oral tablet 1 (one) Tablet qd for 0 days Quantity: 30 {Tablet} Refills: 3 Ordered: 07-Mar-2022 Fast DO, Tomas A Fast DO, Tomas A Start : 07-Mar-2022 Active Start: 11-17-2021 take 1 tablet by mary th once daily Cialis 5 MG Oral Tablet 1 (one) Tablet qd for 0 days Quantity: 30 {Tablet} Refills: 3 Ordered: 17-Nov-2021 Fast DO, Tomas A Fast DO, Tomas A Start : 17-Nov-2021 Active Completed/Discontinued Medications Medication Drug Class(es) Dates Sig (Normalized) Sig (Original) atorvastatin 40 mg oral tablet (20 sources) HMG-CoA Reductase Inhibitor Start: 02-11-2024 End: 08-21-2024 take 1 tablet by mouth at bedtime Atorvastatin 40 mg tablet Discontinued 40 mg PO AT BEDTIME February 11, 2024 1:00am August 21, 2024 10:48am Start: 06-10-2021 take 1 tablet by mary th once daily atorvastatin 40 mg oral tablet 1 (one) Tablet qd for 90 days Quantity: 90 {Tablet} Refills: 3 Ordered: 20-Sep-2022 Fast DO, Tomas A Fast DO, Tomas A Start : 20-Sep-2022 Active Comment on above: Take 1 tablet by mary th daily at bedtime. For cholesterol. Centrum Silver Oral Tablet (16 sources) take 1 tablet by mouth once daily Centrum Silver Oral Tablet qd Active cholecalciferol 0.025 mg oral capsule (18 sources) Vitamin D Start: 024 End: 025 take 1 capsule by mouth once daily Cholecalciferol (Vitamin D3) 25 mcg (1,000 unit) capsule Discontinued 25 ug PO DAILY February 11, 2024 1:00am August 21, 2024 10:48am take 1 capsule by mouth once osiris ly Vitamin D3 25 MCG (1000 UT) Oral Capsule qd (25 MCG (1000 UT)) Active docosahexaenoic acid 120 mg / eicosapentaenoic acid 180 mg oral capsule (7 sources) take 1 mg by mouth once daily Fish Oil 1000 MG Oral Capsule qd (1000 MG) Active Fish Oils (9 sources) take 1 mg by mouth once daily Fish Oil 1000 MG Oral Capsule qd (1000 MG) Active Glucosamine Chondr 500 Complex Oral Capsule (16 sources) Glucosamine Vickey dr 500 Complex Oral Capsule qd Active [place]-3 Fatty Acids capsule (2 sources) Start: 4 End: 5 take 1 capsule by mouth once daily [place]-3 Fatty Acids capsule Discontinued 1000 mg PO DAILY February 11, 2024 1:00am August 21, 2024 10:47am vit C/E/Zn/coppr/lutein/zeaxan (PRESERVISION AREDS-2 ORAL) (1 source) End: 2 vit C/E/Zn/coppr/lutein/z eaxan (PRESERVISION AREDS-2 ORAL) Take by mouth. 0 07/21/2021 Discontinued (Discontinued by another Health Care Provider) Comment on above: Take by mouth. Problems Active Problems Problem Classification Problem Date Documented Da te Episodic/Chronic Cardiac dysrhythmias (20 sources) Cardiac arrhythmia; Translations: [Arrhythmia] Onset: 02-21-2024 11-17-2021 Chronic Comment on above: chronic stable-tayla nue present regimen no symptoms Chronic obstructive pulmonary disease and bronchiectasis (2 sources) Chronic obstructive lung disease; Translations: [Chronic obstructive pulmonary disease, unspecified] 02-19-2024 Chronic Conduction disorders (9 sources) Sinus node dysfunction; Translations: [Other specified heart block] Onset: 03-25-2024 02-29-2024 Chronic Coronary atherosclerosis and other heart disease (20 sources) Coronary arteriosclerosis; Translations: [CAD (coronary artery disease)] Onset: 01-13-2023 03-10-2022 Chronic Comment on above: on ctof chest- no sy mptoms discussed risk factor modification and goals chronic stable-tayla nue present regimen chronic stable-tayla nue present regimen- risk facotr modification Diabetes mellitus without complication (20 sources) Hyperglycemia; Translations: [Elevated fasting blood sugar] 10-05-2021 Episodic Comment on above: discussed diet and e x- get hga1c with wellness labs lower processed carb more physical exercise continue working on diet and ex he is still eating t oo many carbs discussed in detail Disorders of lipid metabolism (20 sources) Hyperlipidemia; Translations: [Hyperlipidemia, unspecified] 09-05-2018 Chronic Comment on above: chol has been high g et physical labs chronic stable-tayla nue present regimen pretty good work on exercise discussed diet and e x Immunizations and screening for infectious disease (20 sources) Pneumococcal vaccination given; Translations: [Pneumococcal vaccination given] 11-17-2021 Episodic Occlusion or stenosis of precerebral arteries (1 source) Occlusion and stenosis of bilateral carotid arteries; Translations: [Occlusion and stenosis of bilateral carotid arteries] Onset: 12-24-2024 Chronic Osteoarthritis (20 sources) Arthritis of left hip; Translations: [Arthritis of left hip] 09-24-2021 Chronic Comment on above: s/p therapy- think m aybe some bursitis as well- gave him exercises to do chronic stable-tayla nue present regimen Other liver diseases (2 sources) Fatty (change of) liver, not elsewhere classified; Translations: [Nonalcoholic fatty liver disease] 02-19-2024 Chronic Other liver diseases (20 sources) Alkaline phosphatase raised; Translations: [Elevated alkaline phosphatase level] Resolved: 11-17-2021 09-24-2021 Episodic Other lower respiratory disease (20 sources) Cough; Translations: [Cough] Resolved: 03-07-2022 09-24-2021 Episodic Other male genital disorders (20 sources) Male erectile dysfunction, unspecified; Translations: [Erectile dysfunction] 11-17-2021 Chronic Comment on above: he took cialis befor e we discussed side effects and how to take try 2 every 72 hours chronic stable-tayla nue present regimen Other non-traumatic joint disorders (11 sources) Hip pain; Translations: [Pain in left hip] Onset: 08-02-2021 Episodic Other nutritional; endocrine; and metabolic disorders (15 sources) Body mass index 25-29 - overweight; Translations: [Overweight] Resolved: 09-20-2022 03-08-2018 Episodic Other nutritional; endocrine; and metabolic disorders (20 sources) Overweight in adulthood with body mass index of 25 or more but less than 30; Translations: [BMI 29.0-29.9,adult] Resolved: 09-20-2022 11-17-2021 Episodic Residual codes; unclassified (8 sources) Tobacco use and exposure - finding; Translations: [Tobacco use] 10-09-2020 Episodic Residual codes; unclassified (20 sources) Influenza vaccination declined; Translations: [Influenza vaccination declined (Renamed from Refused influenza vaccine)] 11-17-2021 Episodic Residual codes; unclassified (2 sources) Amnesia; Translations: [Other amnesia] 02-19-2024 Episodic Retinal detachments; defects; vascular occlusion; and retinopathy (20 sources) 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; Translations: [Macular degeneration, left eye] 09-24-2021 Chronic Comment on above: Dr Nicole griffin [facility]-- Substance-related disorders (20 sources) Smoker; Translations: [Smoker] 10-05-2021 Chronic Comment on above: he doesnt want scree raghav cat scan or to stop smoking discussed smoking ce ssation risks and ways to try to stop discussed smoking ce ssation risks and he is trying to cut down Thyroid disorders (3 sources) Thyroid nodule; Translations: [Nontoxic single thyroid nodule] Onset: 06-10-2024 02-19-2024 Chronic Unclassified (20 sources) Unclassified (20 sources) [facility] WELLNESS EXAM 11-17-2021 Past or Other Problems Problem Classification Problem Date Documented Da te Episodic/Chronic Cardiac dysrhythmias (5 sources) Bradycardia; Translations: [Bradycardia, unspecified] Onset: 03-20-2024 02-19-2024 Episodic Conditions associated with dizziness or vertigo (3 sources) Dizziness; Translations: [Dizziness and giddiness] Onset: 03-17-2024 02-19-2024 Episodic Gastrointestinal hemorrhage (8 sources) Hematochezia; Translations: [Melena] Onset: 10-30-2007 10-30-2007 Episodic Other and unspecified benign neoplasm (8 sources) Benign neoplasm of colon; Translations: [Benign neoplasm of colon, unspecified] Onset: 11-08-2007 02-08-2021 Episodic Other non-traumatic joint disorders (1 source) Pain in left hip; Translations: [Acute hip pain, left] Onset: 08-02-2021 Episodic Other screening for suspected conditions (not mental disorders or infectious disease) (20 sources) Screening status; Translations: [Encounter for screening for malignant neoplasm of prostate (Renamed from Screening for prostate cancer)] Onset: 02-29-2024 09-24-2021 Episodic Comment on above: decrease sugars and high fat animal products repeat normal discussed diet and e x Other skin disorders (8 sources) Sebaceous cyst of skin; Translations: [Sebaceous cyst] Onset: 04-21-2011 04-21-2011 Episodic Results Test Name Value Interpretation Reference Range Facility Cardiology Visit Reporton Cardiology Visit Report [facility] [address] [place] [address] OFFICE VISIT Date of Service: 08/21/24 MR#: [id number] Acct: [id number] Name: ORIANA BONILLA Rep #: [id number] : 1940 Provider: CASSIDY Bedoya Age/Sex: 84/M Location: [facility] Status: Signed HPI HPI History of Present Illness Details: Pleasant 84-year-old man with no previous cardiac history who presented to the emergency room a few weeks ago with generalized weakness because his thought his color looked pale and he was noted to be bradycardic. He is on no negative chronotropic agents and according to his he has had this bradycardia for many years. A Holter monitor was placed which demonstrated an average heart rate of 52 bpm over 48 hours, premature atrial and ventricular complexes were noted, no episodes of atrial fibrillation were noted and the longest R to R interval was 3.5 seconds. No symptoms were recorded throughout the event. He had had a stress test in April 2023 where he exercised to 7 metabolic equivalents with a maximal heart rate of 137 bpm which was 99% of maximum predicted heart rate in sinus rhythm. An echocardiogram was performed in April 2019 which demonstrated preserved ejection fraction of 60%. His lab tests were noted to be normal with a normal hemoglobin. Because of his Holter monitor he did undergo an implantable loop recorder. Several pauses were noted during daytime hours. He then underwent a dual-chamber pacemaker implant From a cardiac standpoint, patient is doing well. He does not have any chest discomfort/heaviness/t ightness. His exercise tolerance is stable for his age. He does not have any worsening symptoms of shortness of breath. He denies any PND. He does not have any orthopnea. He does not have any symptoms of congestive heart failure. He does not have any palpitations that he is aware of. He does not have any lightheadedness or dizziness. He does not have any near-syncope or syncope. He does not have any lower extremity edema. He does not have any symptoms of claudication. Intake Vital Signs 02/21/24 10:33 03/04/24 14:32 08/21/24 10:49 08/21/24 10:51 Height 5 ft 7 in 5 ft 8 in 5 ft 8 in Weight: 175 lb BP 132/77 H Blood Pressure Location Lt brachial Position Sitting Respiration 18 Pulse 79 Pulse Source Monitor Intake Visit Reasons: 6 M FU Insurance Representative Required: No Accompanied by: Self Is patient in pain?: No Allergies Penicillins Allergy (Verified 08/21/24 10:45) Rash Sulfa (Sulfonamide Antibiotics) Allergy (Verified 08/21/24 10:45) Rash codeine Adverse Reaction (Verified 08/21/24 10:45) Hives Medications ???Medication ???Instructions ???Recorded ???Confirmed ???Type qqpuoimvgykg-sblthrn-w olic acid 1 tab PO DAILY 02/11/24 08/21/24 H istory 400 mcg-lutein 250 mcg chewable tablet (Centrum Silver) sennosides 8.6 mg-docusate sodium 1 tab-cap PO DAILY 02/11/2408/21 History 50 mg tablet (2-in-1 Laxative) tadalafil 5 mg tablet 5 mg PO DAILY PRN sexual activity 02/11/24 03/04/24 History aspirin 81 mg tablet,delayed 81 mg PO QDAY 02/19/24 08/21/24 Hi story release (Adult Low Dose Aspirin) glucosamine 500 1 cap PO DAILY 02/19/24 08/21/24 H istory qo-wobldoukq-yfigabwh comp 400 mg-D3 667 unit-C-Mn cap ibuprofen 200 mg capsule 400 mg PO BID PRN pain 02/21/24 History levothyroxine 25 mcg tablet 25 mcg PO DAILY 03/04/24 08/21/24 History (Synthroid) Ejection fraction %: 64 Have you fallen in the past year?: No PFSH Medical History Presence of cardiac pacemaker Sinus pause Sick sinus syndrome Dizziness Fatty liver disease, nonalcoholic Memory loss Hyperlipidemia Erectile dysfunction Macular degeneration PVCs (premature ventricular contractions) Thyroid nodule CAD (coronary artery disease) COPD (chronic obstructive pulmonary disease) Arrhythmia Arthritis of left hip Elevated C-reactive protein (CRP) Body mass index [BMI] 27.0-27.9, adult Bradycardia Hypercholesteremia Surgical History History of carpal tunnel release Hx of cataract removal with insertion of prosthetic lens Family History Mother Cancer Colon cancer Father Cancer Social History Smoking Status: Former smoker alcohol intake: current alcohol intake frequency: holidays/special occasions only substance use type: does not use ROS Const Const: Positive for fatigue; Negative for weakness Eyes Eyes: Negative for change in vision ENT ENT: Negative for dizziness or balance problems Cardio Chest Pain: No Palpita (more content not included)... Normal [facility] Thyroidon 06-06-2024 Thyroid [facility] Services [address] [place] [address] Thyroid MR#: [id number] Acct: [id number] Name: ORIANA BONILLA Trip Rep #: [id number] : 1940 M 84 From: Ted Peng MD PCP: Dr. Tomas Peña DO Status: REG CLI Study: Thyroid Date of Exam: 06/06/24 Exam# [id number] Ordering Dr: Tomas Peña DO PROCEDURE: THYROID 06/06/2024 REASON FOR EXAM: THYROID TECHNIQUE: High-frequency thyroid ultrasound, including grayscale and color-flow images. REFERENCE LINKS: TI-RADS Chart: [email or web address] TI-RADS Calculator Tool with Reference Images: [email or web address]-[email or web address]-ca lculator/ FINDINGS: Right thyroid lobe size: 4.0 x 1.8 x 1.2 cm Left thyroid lobe size: 4.2 x 1.6 x 1.2 cm Isthmus: 0.2 cm Background parenchymal echotexture is homogeneous. Nodules: Multiple tiny (less than 5 mm) hypoechoic and anechoic nodules consistent with adenomas and colloid cysts. US/Thyroid IMPRESSION: Multiple tiny adenomas and colloid cyst. RECOMMENDATION: Based on most suspicious nodule. Nodule size = largest diameter Only evaluate nodule if =>5 mm. Growth > 20% in 2 dimensions = worsening. Follow up to 4 nodules. Recommend biopsy for no more than 2 nodules. Reading Location: [id number] CC: Dr. Tomas Peña DO Aircraft Shipping Checker: Signed Normal [facility] Pacemaker Checkon 04-17-2024 Pacemaker Check [facility] [address] [place] [address]. [address] [place] [address] Pacemaker Check Date of Service: 04/17/24 1313 MR#: [id number] Acct: [id number] Name: ORIANA BONILLA Rep #: [id number] : 1940 From: Dayami Tay Age/Sex: 84/M [place] [facility] [place]: Signed Billing Codes PM Device Codes: 98699 PM Dev Prog Eval, Dual Assessment and Plan Assessment and Plan (1) Presence of cardiac pacemaker: Status: Acute (2) Sinus pause: Status: Acute (3) Sick sinus syndrome: Status: Acute 04/17/24 1314 Date Dayami Tay Cosigner Signature: Date (if applicable) CC: Normal [facility] Pacemaker Checkon 2024 Pacemaker Check [facility] [place] [facility] [address] [place] [address] Pacemaker Check Date of Service: 03/12/24 1519 MR#: [id number] Acct: [id number] Name: ORIANA BONILLA Rep #: [id number] : 1940 From: Dayami Tay Age/Sex: 84/M [place] [facility] [place]: Signed Billing Codes PM Device Codes: 59700 PM Dev Prog Eval, Dual Assessment and Plan Assessment and Plan (1) Presence of cardiac pacemaker: Status: Acute (2) Sinus pause: Status: Acute (3) Sick sinus syndrome: Status: Acute (4) Dizziness: Status: Acute 03/12/24 1520 Date Dayami Tay Cosigner Signature: Date (if applicable) CC: Normal [facility] Chest Insp/Exp 2 Viewon 02-14 Chest Insp/Exp 2 View [facility] Imaging Services [address] [place] [place] [address] Chest Insp/Exp 2 View MR#: [id number] Acct: [id number] Name: JAMELORIANA Dominique Rep #: [id number] : 1940 M 83 From: Bhupinder Najera MD PCP: Dr. Tomas Peña DO Status: [facility] Study: Chest Insp/Exp 2 View Date of Exam: 03/05/24 Exam# [id number] Ordering Dr: Ankit Ivory MD [id number] EXAM: XR CHEST, 2 VIEWS CLINICAL INDICATION: Post permanant ICD/Pacemaker -- inspiration/expiration . Arms Down. Wet read to MD TECHNIQUE: Frontal and lateral views of the chest. COMPARISON: Single view chest 02/11/2024 FINDINGS: LUNGS AND PLEURAL SPACES: Unremarkable. No consolidation or edema. No pneumothorax. No effusion. HEART: Unremarkable. Cardiac silhouette not enlarged. MEDIASTINUM: Central airways and mediastinal contour are unremarkable. BONES/JOINTS: Unremarkable. No acute fracture. SOFT TISSUES: Unremarkable. TUBES, LINES AND DEVICES: Left chest pacer with leads overlying the right atrium and right ventricle. RAD/Chest Insp/Exp 2 View IMPRESSION: Left chest pacer with leads overlying the right atrium and right ventricle. No pneumothorax identified. Electronically Signed: Bhupinder Najera MD at 7:39 EST , CC: Dr. Ankit Ivory MD; Dr. Tomas Peña DO Aircraft Shipping Checker: Signed Normal [facility] Discharge Instructionon 02-14 Discharge Instruction [facility] Medical Records Department [address] [place] [address] Instructions for Home/Discharge Instructions 03/05/24 0832 MR#: [id number] Acct: [id number] Name: ORIANA BONILLA Rep #: [id number] : 1940 83 From: Ankit Ivory MD PCP: Dr. Tomas Peña DO Status:REG SDC Discharge Instructions Diet Discharge Diet: No restrictions (as you feel able. No excessive stretching. No lifting your arm over your head (keep elbow below shoulder level) until seen for your pacemaker check. Do not lift your elbow away from your side until you are seen for your first visit. Keep the arm sling on if it helps remind you not to lift your arm.) DC O2, CPAP, BIPAP needs Home O2 Discharge instructions: No Dressing / Incision Discharge Activity: May Not Drive May shower in (days): 2 Additional Activity Instructions:: May shower or bathe on [day 3]. Do not scrub the incision or soak in the tub. Just wash with soap and let the water run over the incision. Gently pat dry with towel. Medications: Take your pain medication as directed. Refer to your discharge instruction sheet for a list of medications you are to take. Dressing / Incision Call your doctor if your incision/area has: Continuous Slow Oozing, Sudden Increased Bleeding, Increased Pain/ Swelling, Increased Redness, Foul Smelling Discharge and Swelling at the incision site Call your doctor if you observe: Fever of 101 or Higher, Shortness of breath, Dizziness, Fainting spells, Swelling in the ankles, Chest pain, Prolonged hiccupping and Increased palpitations (irregular heartbeat) Suture Line Care: Avoid Pulling/Pushing and Avoid Pinching/Bending Cleanse incision/area with: Do not get Incision Wet and Keep Dressing Clean Dry Additional Dressing/Incision Instructions:: When dressing is removed, wash and dry incision. Keep covered with a light bandage if it is rubbing against your clothing. Do not cover the incision with an airtight bandage. Change the bandage daily. Do not remove steri strips. The strips will fall off on their own. Follow Up Care Please Follow Up With: Ankit Ivory MD When: Pacer follow-up on March 12 at 10:30 AM of the heart group office. Test Results: Test results from this visit will be discussed in further detail at your follow-up appointment, if applicable. Discharge Plan Admission Attending Provider: Ankit Ivory Primary Care Provider: Tomas Peña Instructions Print Language: Cook Islander Discharge Orders/Prescriptions Prescriptions: No Action aspirin [Adult Low Dose Aspirin] 81 mg tablet,delayed release (DR/EC) 81 mg PO QDAY zoxt-spaunt-dfuvizup-D 3-C-Mn 500-400-667 mg-mg-unit capsule 1 cap PO DAILY ibuprofen 200 mg capsule 400 mg PO BID PRN (Reason: pain) atorvastatin 40 mg tablet 40 mg PO QHS tadalafil 5 mg tablet 5 mg PO DAILY PRN (Reason: sexual activity) omega-3 fatty acids Capsule 1,000 mg PO DAILY Centrum Silver 400-250 mcg tablet,chewable 1 tab PO DAILY cholecalciferol (vitamin D3) 25 mcg (1,000 unit) capsule 25 mcg PO DAILY sennosides-docusate sodium [2-in-1 Laxative] 8.6-50 mg tablet 1 tab-cap PO DAILY levothyroxine [Synthroid] 25 mcg tablet 25 mcg PO DAILY Referrals / Follow Up: Tomas Peña DO [Primary Care Provider] - Disposition Disposition (needs filled in before D/C Order can be placed): Home, Self Care 03/05/24 0833 Ankit Ivory MD CC: Dr. Tomas Peña DO Signed [facility] Pacemaker Checkon 03-05-2024 Pacemaker Check [facility] [place] [facility] [place] [address] Pacemaker Check Date of Service: 03/05/24 1454 MR#: [id number] Acct: [id number] Name: ORIANA BONILLA Rep #: [id number] : 1940 From: Dayami Tay Age/Sex: 83/M [place] [facility] [place]: Signed Billing Codes PM Device Codes: 65562 PM Dev Prog Eval, Dual Assessment and Plan Assessment and Plan (1) Sinus pause: Status: Acute (2) Sick sinus syndrome: Status: Acute (3) Presence of cardiac pacemaker: Status: Acute 03/05/24 1510 Date Dayami Gonzalez Signature: Date (if applicable) CC: Normal [facility] TXT:Device Implant / Explant on 03-04-2024 TXT:Device Implant / Explant [facility] Imaging Services [address] [place] [address] TXT:Device Implant / Explant MR#: [id number] Acct: [id number] Name: ORIANA BONILLA #: [id number] : 1940 83 From: Ankit Ivory MD PCP: Dr. Tomas Peña, DO Status:REG SD Patient: ORIANA BONILLA Study Date: 03/04/2024 Performing: Ankit Ivory MD : 1940 Age: 83 Gender: male PROCEDURES PERFORMED LP04-(59390)INITIAL PACER INSERT+DUAL LEADS LP02-(02593)REMOVAL OF LOOP RECORDER INDICATIONS Sinoatrial node dysfunction/Sick sinus syndrome PROCEDURE DETAILS The patient was brought to the Catheterization Lab in the postabsorptive nonsedated state. Informed consent was obtained prior to the procedure. Local anesthetic was given subcutaneously to the left upper chest area with Lidocaine 2%. Incision was made to the left upper chest. A peel-away sheath was inserted into the left subclavian vein. PPM ventricular lead was inserted / positioned to right ventricular apex. PPM ventricular lead testing performed. PPM ventricular lead testing performed. A peel-away sheath was inserted into the left subclavian vein. The wire was then removed. PPM atrial lead was inserted / positioned to the right atrial appendage. PPM atrial lead testing performed. The Atrial lead sutured in place with 2-0 Silk. The Ventricular PM lead sutured in place with 2-0 Silk. PPM generator was attached to the lead(s) and inserted into the pocket. Device pocket was irrigated with antibiotic, Clindamycin 900 mg.. Subcutaneous closure was completed with 3-0 Vicryl. Skin closure was completed with 4-0 Vicryl. Steri-strips applied to Lt chest area. Local anesthetic was given subcutaneously to the left upper chest area with Lidocaine 2%. Incision was made to the left upper chest. ICM Loop Recorder was removed. Steri-strips applied to Lt chest area. Instrument, sponge, and needle counts were noted to be normal. The patient tolerated the procedure well. Estimated Blood Loss: 10 ml's IMPLANTED / EX-PLANTED DEVICES IMPLANTED DEVICE(S): PPM Ventricular lead - Admissions Clinician: [employer] Model # Ingevity 7842 , Serial # [id number] PPM Atrial lead - Admissions Clinician: [employer] Model # Ingevity 7841 , Serial # [id number] PPM Generator - Admissions Clinician: [employer] Model # Essentio L111 , Serial # [id number] DEVICE PARAMETERS ATRIAL LEAD PARAMETERS: P wave- 6.9 (mV) Current- 1.3 (mA) threshold- 0.8 (V) impedence- 610 (OHMS) VENTRICULAR LEAD PARAMETERS: R wave- 14.2 (mV) Current- 1.1 (mA) threshold- 1.0 (V) impedence- 906 (OHMS) DEVICE PARAMETERS: Mode- DDD Lower rate- 60 Upper rate- 130 CONCLUSIONS / RECOMMENDATIONS Device Conclusions: Successful implantation of a dual chamber pacemaker Device Recommendations: Follow up with Primary Care Physician PROCEDURE MEDICATIONS Fentanyl 50 mcg IV Versed 1 mg IV Versed 1 mg IV Oxygen: 2 L/min via nasal cannula Antibiotic given in appropriate timeframe. Clindamycin 900 mg IV 03/04/2024 11:41:58 Signed By Ankit Ivory MD On 03/04/2024 13:39:54 Ankit Ivory MD 03/04/24 1341 Date Ankit Ivory MD Cosigner Signature: Date (if indicated) CC: Dr. Ankit Ivory MD; Dr. Tomas Peña DO Date Dictated: 03/04/24 1204 Date Transcribed: 03/04/24 1339 Aircraft Shipping Checker: [place] Signed Normal [facility] Urinalysis, Completeon 03-04 WBC 0-5 SEEN Normal 0-5 [facility] Comment on above: Order Comment: PT RE FUSED TSH For PPM implant [employer]N GRINDER OPERATOR TO SPECIFY Performed By: #### L 400.0001 #### [facility] [address] [place], [address] BACTERIA 0 SEEN Normal None Seen [facility] Comment on above: Order Comment: PT RE FUSED TSH For PPM implant [employer] OPERATOR TO SPECIFY Performed By: #### L 400.0001 #### [facility] [address] [place], [address] EPI,SQUAMOUS 0 SEEN Normal 0-5 [facility] Comment on above: Order Comment: PT RE FUSED TSH For PPM implant [employer] GRIND[employer] OPERATOR TO SPECIFY Performed By: #### L 400.0001 #### [facility] [address] [place], [address] Mucus Ql (Urine sed) 0 SEEN Normal [facility] Comment on above: Order Comment: PT RE FUSED TSH For PPM implant [employer] GRIND[employer] OPERATOR TO SPECIFY Performed By: #### L 400.0001 #### [facility] [address] [place], [address] RBC 0 SEEN Normal 0-5 [facility] Comment on above: Order Comment: PT RE FUSED TSH For PPM implant [employer] GRIND[employer] OPERATOR TO SPECIFY Performed By: #### L 400.0001 #### [facility] [address] [place], [address] TXT:Device Implant / Explant on 02-26-2024 TXT:Device Implant / Explant [facility] Imaging Services [address] [place] [address] TXT:Device Implant / Explant MR#: [id number] Acct: [id number] Name: ORIANA BONILLA Rep #: [id number] : 1940 83 From: Ankit Ivory MD PCP: Dr. Tomas Peña, DO Status:REG [facility] Patient: ORIANA BONILLA Study Date: 02/26/2024 Performing: Ankit Ivory MD : 1940 Age: 83 Gender: male PROCEDURES PERFORMED LP01-(74760)INSERTION OF LOOP RECORDER INDICATIONS Syncope PROCEDURE DETAILS The patient was brought to the Catheterization Lab in the postabsorptive nonsedated state. Informed consent was obtained prior to the procedure. Local anesthetic was given subcutaneously to the left upper chest area with Lidocaine 2%. Incision was made to the left upper chest. ICM Loop Recorder was inserted. The patient tolerated the procedure well. Estimated Blood Loss: 10 ml's IMPLANTED / EX-PLANTED DEVICES IMPLANTED DEVICE(S): ICM Loop Recorder - Admissions Clinician: [employer], Model # ASSERT- IQ-EL + , Serial # [id number] DEVICE PARAMETERS CONCLUSIONS / RECOMMENDATIONS Device Conclusions: Successful implantation of a patient activated loop recorder. Device Recommendations: Follow up with Primary Care Physician PROCEDURE MEDICATIONS Versed 1 mg IV Oxygen: 2 L/min via nasal cannula Antibiotic given in appropriate timeframe. Clindamycin 900 mg IV 02/26/2024 11:17:18 Signed By Ankit Ivory MD On 02/26/2024 11:42:03 Ankit Ivory MD 02/26/24 1141 Date Ankit Ivory MD Cosigner Signature: Date (if indicated) CC: Dr. Ankit Ivory MD; Dr. Tomas Peña DO Date Dictated: 02/26/24 1135 Date Transcribed: 02/26/24 1142 Aircraft Shipping Checker: CO Signed [facility] 12 Lead EKG performed by [facility] on 02-21-2024 12 Lead EKG performed by [facility] [address] [place] [address] 12 Lead EKG performed by [facility] 02/21/24 1034 MR#: [id number] Acct: [id number] Name: ORIANA BONILLA Rep #: [id number] : 1940 83 From: Ankit Ivory MD Attending Dr: Dr. Ankit Ivory MD Status: DEP A MB Ordering Dr: Ankit Ivory MD Date: 02/21/24 [place]: [facility] Sex: M C Admitted: [facility]12 Lead EKG performed by [facility] ECG Report Interpretation ----Sinus Bradycardia - occasional PAC # PACs = 1.WITHIN NORMAL LIMITSElectronically signed on 02/21/2024 at 14:44 by Ankit Ivory [employer] Version 8610 02/21/24 1448 Date Ankit Ivory MD CC: Dr. Tomas Peña DO Date Dictated: 02/21/24 1034 Date Transcribed: 02/21/241033 Aircraft Shipping Checker: CO Signed Normal [facility] Cardiology Visit Reporton Cardiology Visit Report [facility] [address] [place] [address]. [address] [place] [address] OFFICE VISIT Date of Service: 02/21/24 MR#: [id number] Acct: [id number] Name: ORIANA BONILLA Rep #: [id number] : 1940 Provider: Dr. Ankit Ivory MD Age/Sex: 83/M [place] [facility] [place]: Signed HPI HPI History of Present Illness Details: Pleasant 83-year-old man with no previous cardiac history who presented to the emergency room a few weeks ago with generalized weakness because his thought his color looked pale and he was noted to be bradycardic. He is on no negative chronotropic agents and according to his he has had this bradycardia for many years. A Holter monitor was placed which demonstrated an average heart rate of 52 bpm over 48 hours, premature atrial and ventricular complexes were noted, no episodes of atrial fibrillation were noted and the longest R to R interval was 3.5 seconds. No symptoms were recorded throughout the event. He had had a stress test in April 2023 where he exercised to 7 metabolic equivalents with a maximal heart rate of 137 bpm which was 99% of maximum predicted heart rate in sinus rhythm. An echocardiogram was performed in April 2019 which demonstrated preserved ejection fraction of 60%. His lab tests were noted to be normal with a normal hemoglobin. Her TSH is yet to be checked. His physical exam today is unremarkable his electrocardiogram demonstrates sinus bradycardia with a rate of 51 bpm and occasional premature atrial complexes noted. Intake Vital Signs 02/11/24 16:27 02/21/24 10:33 Height 5 ft 7 in 5 ft 7 in Weight: 172 lb BMI 26.9 BP 144/77 H Blood Pressure Location Lt brachial Position Sitting Respiration 16 Pulse 58 L Pulse Source Monitor Intake Visit Reasons: S/P [facility] 02/10 Insurance Representative Required: No Accompanied by: Significant Other Is patient in pain?: No Allergies Penicillins Allergy (Verified 02/21/24 10:39) Rash Sulfa (Sulfonamide Antibiotics) Allergy (Verified 02/21/24 10:39) Rash codeine Adverse Reaction (Verified 02/21/24 10:39) Hives Medications ???Medication ???Instructions ???Recorded ???Confirmed ???Type atorvastatin 40 mg tablet 40 mg PO DAILY 02/11/24 02/21/24 History cholecalciferol (vitamin D3) 25 25 mcg PO DAILY 02/11/24 02/21/24 History mcg (1,000 unit) capsule clxwacwfhdin-ufczvzb-q olic acid 1 tab PO DAILY 02/11/24 02/21/24 History 400 mcg-lutein 250 mcg chewable tablet (Centrum Silver) omega-3 fatty acids 1,000 mg PO DAILY 02/11/24 02/21/24 History sennosides 8.6 mg-docusate sodium 1 tab-cap PO DAILY 02/11/24 02/21/24 History 50 mg tablet (2-in-1 Laxative) tadalafil 5 mg tablet 5 mg PO DAILY 02/11/24 02/21/24 History aspirin 81 mg tablet,delayed 81 mg PO QDAY 02/19/24 02/21/24 History release (Adult Low Dose Aspirin) glucosamine 500 cap PO 02/19/24 02/21/24 History rk-sdlvdzcte-skurmvvz comp 400 mg-D3 667 unit-C-Mn cap ibuprofen 200 mg capsule 400 mg PO BID 02/21/24 02/21/24 History Have you fallen in the past year?: Yes [facility] Medical History Dizziness Fatty liver disease, nonalcoholic Memory loss Hyperlipidemia Erectile dysfunction Macular degeneration PVCs (premature ventricular contractions) Thyroid nodule CAD (coronary artery disease) COPD (chronic obstructive pulmonary disease) Arrhythmia Arthritis of left hip Elevated C-reactive protein (CRP) Body mass index [BMI] 27.0-27.9, adult Bradycardia Hypercholesteremia Surgical History History of carpal tunnel release Hx of cataract removal with insertion of prosthetic lens Family History Mother Cancer Colon cancer Father Cancer Social History Smoking Status: Current every day smoker tobacco type: cigarettes alcohol intake: current alcohol intake frequency: holidays/special occasions only substance use type: does not use ROS Const Const: Positive for fatigue; Negative for weakness, headache(s), daytime sleepiness or difficulty sleeping ENT ENT: Positive for dizziness and balance problems; Negative for headache(s) or Nosebleed/epistaxis Cardio Chest Pain: No Palpitations: No Edema: None Resp Respiratory: Positive for SOB with activity; Negative for SOB at rest, SOB orthopnea SOB lying down or Cough GI GI: Negative nausea, vomiting or heartburn Musc Musc: Positive for balance problems Neuro Neuro: Positive for dizziness and lightheadedness; Negative for near syncope, headache(s) or weakness Endo Endo: Positive for fatigue Cardiology Exam Const Appearance: cooperative, healthy appearing, no acute distres (more content not included)... Normal [facility] 12 Lead EKGon 02-11-2024 12 Lead EKG [facility] Cardiovascular Services [address] [place] [address] 12 Lead EKG 02/11/24 1835 MR#: [id number] Acct: [id number] Name: JAMELORIANA Trip Rep #: [id number] : 1940 83 From: Ankit Ivory MD Attending Dr: Status: DEP ER Ordering Dr: Jose G Cramer DO Date: 02/11/24 Location: ED Sex: M C Admitted: Test Reason : DYSRHYTHMIA Blood Pressure : */* mmHG Vent. Rate : 45 BPM Atrial Rate : 45 BPM P-R Int : 158 ms QRS Dur : 86 ms QT Int : 476 ms P-R-T Axes : 82 47 55 degrees QTcB Int : 411 ms Sinus bradycardia with marked sinus arrhythmia Otherwise normal ECG Confirmed by ANIKT IVORY MD ([id number]), movie editor EVERARDO WALDROP ([id number]) on 02/12/2024 10:47:39 AM Referred By: TA Confirmed By: ANKIT IVORY MD 02/12/241046 Date Ankit Ivory MD CC: Dr. Tomas Peña DO; Dr. Jose G Cramer DO Signed Normal [facility] 12 Lead EKG [facility] Cardiovascular Services [address] [place] [address] 12 Lead EKG 02/11/24 1643 MR#: [id number] Acct: [id number] Name: ORIANA BONILLA Rep #: [id number] : 1940 83 From: Ankit Ivory MD Attending Dr: Status: DEP ER Ordering Dr: Jose G Cramer DO Date: 02/11/24 Location: ED Sex: M C Admitted: Test Reason : ARRYTH Blood Pressure : */* mmHG Vent. Rate : 49 BPM Atrial Rate : 49 BPM P-R Int : 150 ms QRS Dur : 88 ms QT Int : 458 ms P-R-T Axes : 80 54 59 degrees QTcB Int : 413 ms Sinus bradycardia with marked sinus arrhythmia Otherwise normal ECG Confirmed by ANKIT IVORY MD ([id number]), EVERARDO Leung ([id number]) on 02/12/2024 10:47:24 AM Referred By: Confirmed By: ANKIT IVORY MD 02/12/241046 Date Ankit Ivory MD CC: Dr. Tomas Peña DO; Dr. Jose G Cramer DO Signed Normal [facility] Basic Metabolic Profile (BMP )on 02-11-2024 BUN/CRE 17.3 RATIO Normal 10-20 [facility] Comment on above: Order Comment: 1Y Performed By: #### L 501.5425, L100.0100, L500.2500 ####[facility] [address] [place], [address] CA,Total 9.2 mg/dL Normal 8.5-10.1 [facility] Comment on above: Order Comment: 1Y Performed By: #### L 501.5425, L100.0100, L500.2500 ####[facility] [address] [place], [address] Chloride [Moles/Vol] 107 mmol/L Normal 98-107 [facility] Comment on above: Order Comment: 1Y Performed By: #### L 501.5425, L100.0100, L500.2500 ####[facility] [address] [place], [address] CO2 [Moles/Vol] 26.0 mmol/L Normal 21.0-32.0 [facility] Comment on above: Order Comment: 1Y Performed By: #### L 501.5425, L100.0100, L500.2500 ####[facility] [address] [place], [address] Creatinine [Mass/Vol] 0.87 mg/dL Normal 0.70-1.30 [facility] Comment on above: Order Comment: 1Y Result Comment: The validity of the calculated GFR GFRAA in patients over 70 years has not been determined. Clinical correlation is essential. Performed By: #### L 501.5425, L100.0100, L500.2500 ####[facility] [address] [place], [address] ECRCL 61.20 ml/min Normal [facility] Comment on above: Order Comment: 1Y Performed By: #### L 501.5425, L100.0100, L500.2500 ####[facility] [address] [place], [address] EST GFR - AA 108 mL/min Normal >60 [facility] Comment on above: Order Comment: 1Y Result Comment: Afri can Prydeinig GFR Calc Performed By: #### L 501.5425, L100.0100, L500.2500 ####[facility] [address] [place], [address] GAP 4 Low 5-15 [facility] Comment on above: Order Comment: 1Y Performed By: #### L 501.5425, L100.0100, L500.2500 ####[facility] [address] [place], [address] GFR/1.73 sq M.predicted among non-blacks MDRD (S/P/Bld) [Vol rate/Area] 89 mL/min/{1.73_m2} Normal >60 [facility] Comment on above: Order Comment: 1Y Result Comment: Non- GFR Calc Performed By: #### L 501.5425, L100.0100, L500.2500 ####[facility] [address] [place], [address] Glucose [Mass/Vol] 122 mg/dL High 74-106 [facility] Comment on above: Order Comment: 1Y Result Comment: Fast ing Glucose result from 100 to 125 mg/dL suggests IMPAIRED HOMEOSTASIS per A.D.A. criteria. Performed By: #### L 501.5425, L100.0100, L500.2500 ####[facility] [address] [place], [address] Potassium [Moles/Vol] 4.0 mmol/L Normal 3.5-5.1 [facility] Comment on above: Order Comment: 1Y Performed By: #### L 501.5425, L100.0100, L500.2500 ####[facility] [address] [place], [address] Sodium [Moles/Vol] 136 mmol/L Normal 136-145 [facility] Comment on above: Order Comment: 1Y Performed By: #### L 501.5425, L100.0100, L500.2500 ####[facility] [address] [place], [address] Urea nitrogen [Mass/Vol] 15 mg/dL Normal 7-18 [facility] Comment on above: Order Comment: 1Y Performed By: #### L 501.5425, L100.0100, L500.2500 ####[facility] [address] [place], [address] CBC W/Diff, Automatedon 12-2 -2023 Absolute Lymph 1.76 X10 3/uL Normal 0.83-4.51 [facility] Comment on above: Performed By: #### L 501.5425, L100.0100, L500.2500 ####[facility] [address] [place], [address] Absolute Neut 4.9 X10 3/uL Normal 2.0-7.7 [facility] Comment on above: Performed By: #### L 501.5425, L100.0100, L500.2500 ####[facility] [address] [place], [address] Basophils/100 WBC (Bld) 0.9 % Normal 0-1 [facility] Comment on above: Performed By: #### L 501.5425, L100.0100, L500.2500 ####[facility] [address] [place], [address] Eosinophils/100 WBC (Bld) 3.1 % Normal 0-5 [facility] Comment on above: Performed By: #### L 501.5425, L100.0100, L500.2500 ####[facility] [address] [place], [address] Erythrocyte distribution width (RBC) [Ratio] 12.7 % Normal 11.6-14.6 [facility] Comment on above: Performed By: #### L 501.5425, L100.0100, L500.2500 ####[facility] [address] [place], [address] Hematocrit (Bld) [Volume fraction] 42.9 % Normal 40-54 [facility] Comment on above: Performed By: #### L 501.5425, L100.0100, L500.2500 ####[facility] [address] [place], [address] Hemoglobin (Bld) [Mass/Vol] 14.1 g/dL Normal 13.0-16.5 [facility] Comment on above: Performed By: #### L 501.5425, L100.0100, L500.2500 ####[facility] [address] [place], [address] IG% 0.100 Normal 0.0-0.9 [facility] Comment on above: Result Comment: IG% - Immature Granulocytes (promyelocytes, myelocytes and metamyelocytes) > 1% indicates that a LEFT SHIFT is Present. Performed By: #### L 501.5425, L100.0100, L500.2500 ####[facility] [address] [place], [address] Lymphocytes/100 WBC (Bld) 22.9 % Normal 19-41 [facility] Comment on above: Performed By: #### L 501.5425, L100.0100, L500.2500 ####[facility] [address] [place], [address] MCH (RBC) [Entitic mass] 29.7 pg Normal 27.0-32.0 [facility] Comment on above: Performed By: #### L 501.5425, L100.0100, L500.2500 ####[facility] [address] [place], [address] MCHC (RBC) [Mass/Vol] 32.9 g/dL Normal 32-36 [facility] Comment on above: Performed By: #### L 501.5425, L100.0100, L500.2500 ####[facility] [address] [place], [address] MCV (RBC) [Entitic vol] 90.5 fL Normal 80-94 [facility] Comment on above: Performed By: #### L 501.5425, L100.0100, L500.2500 ####[facility] [address] [place], [address] Monocytes/100 WBC (Bld) 9.9 % Normal 0-10 [facility] Comment on above: Performed By: #### L 501.5425, L100.0100, L500.2500 ####[facility] [address] [place], [address] Neutrophils/100 WBC (Bld) 63.1 % Normal 47-70 [facility] Comment on above: Performed By: #### L 501.5425, L100.0100, L500.2500 ####[facility] [address] [place], [address] Nucleated RBC (Bld) [#/Vol] 0 10*3/uL Normal 0-5 [facility] Comment on above: Performed By: #### L 501.5425, L100.0100, L500.2500 ####[facility] [address] [place], [address] Platelet mean volume (Bld) [Entitic vol] 12.1 fL High 6.2-12.0 [facility] Comment on above: Performed By: #### L 501.5425, L100.0100, L500.2500 ####[facility] [address] [place], [address] Platelets (Bld) [#/Vol] 179 10*3/uL Normal 150-450 [facility] Comment on above: Performed By: #### L 501.5425, L100.0100, L500.2500 ####[facility] [address] [place], [address] RBC (Bld) [#/Vol] 4.74 10*6/uL Normal 4.6-6.2 [facility] Comment on above: Performed By: #### L 501.5425, L100.0100, L500.2500 ####[facility] [address] [place], [address] RDW SD 41.9 fl Normal 35.1-43.9 [facility] Comment on above: Performed By: #### L 501.5425, L100.0100, L500.2500 ####[facility] [address] [place], [address] WBC (Bld) [#/Vol] 7.7 10*3/uL Normal 4.4-11.0 [facility] Comment on above: Performed By: #### L 501.5425, L100.0100, L500.2500 ####[facility] [address] [place], [address] Chest 1 View (Portable)on Chest 1 View (Portable) [facility] Imaging Services [address] [place] [address] Chest 1 View (Portable) MR#: [id number] Acct: [id number] Name: ORIANA BONILLA Rep #: [id number] : 1940 M 83 From: Bhupinder Adams PCP: Dr. Tomas Peña, DO Status: REG ER Study: Chest 1 View (Portable) Date of Exam: 02/11/24 Exam# [id number] Ordering Dr: Jose G Cramer DO [id number] STUDY: XR Chest 1 View 02/11/2024 5:13 PM REASON FOR EXAM: Male, 83 years old. chest pain COMPARISON: 8 TECHNIQUE: XR Chest 1 View FINDINGS: There is no demonstrated pleural abnormality. Normal heart size. Normal mediastinum. Normal mary. Prominent appearing increased interstitial lung markings. Normal visualized pulmonary arteries. There is atherosclerotic calcification of the aortic arch with tortuosity. There are diffuse degenerative changes of the visualized thoracic spine. There is degenerative osteoarthritis of the bilateral shoulders. There are no acute findings of the upper abdomen. RAD/Chest 1 View (Portable) IMPRESSION: There are no acute findings. Electronically Signed: Bhupinder Carrillo MD at 17:35 EST , CC: Dr. Tomas Peña DO; Dr. Jose G Cramer DO Aircraft Shipping Checker: Signed Normal [facility] Emergency Department Summary on 02-11-2024 Emergency Department Summary [facility] Medical Records Department [address] [place] [address] Emergency Department Summary 02/11/24 MR#: [id number] Acct: [id number] Name: ORIANA BONILLA Rep #: [id number] : 1940 83 From: Jose G Cramer DO PCP: Dr. Tomas Peña DO Status:REG ER Location: ED HPI History of Present Illness Chief Complaint: Dizziness [facility] Medical History (Updated 02/11/24 @ 19:[address] Jose G Cramer DO) Hypercholesteremia Home Medications ???Medication ???Instructions ???Recorded ???Last Taken ???Type atorvastatin 40 mg tablet 40 mg PO DAILY 02/11/24 Unknown History cholecalciferol (vitamin D3) 25 25 mcg PO DAILY 02/11/24 Unknown History mcg (1,000 unit) capsule iukrfoutkhww-wtojaft-k olic acid 1 tab PO DAILY 02/11/24 Unknown History 400 mcg-lutein 250 mcg chewable tablet (Centrum Silver) omega-3 fatty acids 1,000 mg PO DAILY 02/11/24 Unknown History sennosides 8.6 mg-docusate sodium 1 tab-cap PO DAILY 02/11/24 Unknown History 50 mg tablet (2-in-1 Laxative) tadalafil 5 mg tablet 5 mg PO DAILY 02/11/24 Unknown History Allergy/AdvReac Type Severity Reaction Status Date / Time Penicillins Allergy Rash Verified 02/11/24 19:22 Sulfa (Sulfonamide Allergy Rash Verified 02/11/24 19:22 Antibiotics) codeine AdvReac NEEDS Verified 02/11/24 19:22 FOLLOW-UP Social History Smoking Status: Current every day smoker tobacco type: cigarettes EXAM Physical Exam Const Vital Signs: 02/11/24 16:27 02/11/24 16:51 02/11/24 17:27 Temperature 98.1 F Temperature Source Oral Pulse Rate 45 L 48 L Respiratory Rate 16 9 L Blood Pressure 177/100 H 149/77 H Blood Pressure Mean 125 101 Pulse Ox 100 100 Oxygen Delivery Method Room Air Room Air Room Air 02/11/24 18:00 02/11/24 19:00 02/11/24 20:00 Temperature Temperature Source Pulse Rate 44 L 42 L 55 L Respiratory Rate 14 16 17 Blood Pressure 161/70 H 155/80 H 147/79 H Blood Pressure Mean 100 105 101 Pulse Ox 95 99 98 Oxygen Delivery Method Room Air Room Air Room Air 02/11/24 20:11 Temperature 98.1 F Temperature Source Pulse Rate 52 L Respiratory Rate 17 Blood Pressure 147/79 H Blood Pressure Mean 101 Pulse Ox 99 Oxygen Delivery Method MDM MDM MDM Narrative Medical decision making narrative: HISTORY OF PRESENT ILLNESS: 83-year-old male presents with dizziness. He is accompanied by his . They state they noted the patient had a heart rate as low as 39 at home and a blood pressure of 128 systolic. This concerned the patient's so she brought him in for further evaluation. Patient notes there is no alleviate exacerbating features to his dizziness. Denies chest pain, palpitations, shortness of breath. Denies any recent illnesses. Denies any cough fever chills. Denies any leg swelling. Denies any medications that affect his heart rate including metoprolol. REVIEW OF SYSTEMS: Pertinent positives: Bradycardia, dizziness Pertinent negatives: As per HPI PHYSICAL EXAM: Nursing triage notes reviewed, Vital signs reviewed Constitutional: please see mdm HENT: MMM Eyes: Pupils equal round and reactive to light, Extraocular muscles intact Neck: No stridor, no JVD, full neck ROM Lungs: Clear to auscultation, No wheezing or rales. No increased work of breathing, no conversational dyspnea, no accessory muscle use, no nasal flaring. No respiratory distress noted Heart: Regular rate and rhythm, No murmurs, No rubs and No gallops, 2+ distal pulses (radial, femoral, posterior tibial) in all extremities Abdomen: Soft, there is no tenderness, rigidity, rebound or guarding, no obvious peritoneal signs, no palpable pulsatile abdominal masses, no auscultated abdominal bruit : No CVAT Extremities: No edema Neuro: Alert and oriented x3, neuro exam at baseline, cranial nerves II through XII are intact. No pain with extraocular muscle movement. There is negative test of skew. 5 of 5 strength in upper and lower extremities in flexion extension. Intact sensation to light touch in upper and lower extremity dermatomes. No truncal or extremity ataxia. No dysdiadochokinesia. Normal gait. 2+ reflexes in upper and lower extremities. No meningeal signs. Negative Babinski. NIH of 0. Skin: No rash or lesions noted MEDICAL DECISION MAKING: Chief Complaint: Dizziness External records reviewed: Reviewed prior cardiovascular testing, noted heart rate of 53 from stress test in March 2023. Reviewed Holter monitor report from 2022 minimum heart rate in the study was noted at 32 Factors affecting care: Hyperlipidemia Social determinants of health: none History obtained from others: none Consults: none [facility] Narrative: The patient was initially hypertensive, bradycardic (more content not included)... Normal [facility] L501.4020on 02-11-2024 TROPONIN-I HS 7 pg/mL Normal 3.0-78.0 [facility] Comment on above: Result Comment: Filippo rm Note: New Test Units and Gender Specific Reference Ranges. For more information see Policy Stat Procedure [place] High Sensitivity Troponin (TNIH) and attachments. Performed By: #### L 501.4020 ####[facility] [address] [place], [address] L501.5425on 02-11-2024 TROPONIN-I HS 7 pg/mL Normal 3.0-78.0 [facility] Comment on above: Order Comment: 1Y Result Comment: Filippo rm Note: New Test Units and Gender Specific Reference Ranges. For more information see Policy Stat Procedure [place] High Sensitivity Troponin (TNIH) and attachments. Performed By: #### L 501.5425, L100.0100, L500.2500 ####[facility] [address] [place], [address] Lung Screeningon 02-06-[address] Lung Screening [facility] Imaging Services [address] [place] [address] Lung Screening MR#: [id number] Acct: [id number] Name: ORIANA BONILLA Rep #: [id number] : 1940 M 83 From: Michel Pham MD PCP: Dr. Tomas Peña, DO Status: [facility] Study: Low Dose CT Lung Screening Date of Exam: 02/05 Exam# [id number] Ordering Dr: Tomas Peña DO [id number] STUDY: LOW DOSE CT LUNG CANCER SCREENING REASON FOR EXAM: Male, 83 years old. SMOKER 1PPD X 65 YRS RADIATION DOSAGE (If Supplied By Facility): CTDIvol = ( 3.02 ) mGy, DLP = ( 109.10 ) mGycm TECHNIQUE: No contrast was administered. [...] were reconstructed in soft tissue windows. COMPARISON: 01/26/2023 FINDINGS: Lung windows show the lungs to be normally expanded. No organized infiltrate, effusion, or suspicious noncalcified mass or nodule. Overall the lung teixeira show no significant interval change since the previous study. There is mild underlying emphysema. Limited soft tissues show normal-appearing thyroid gland. No suspicious adenopathy. There are physiologic subcentimeter in short axis dimension mediastinal lymph nodes. The thoracic aorta shows peripheral calcifications but tapers normally. There are calcified coronary vessels. Limited cuts of the upper abdomen do not show a suspicious abnormality. Bony structures show degenerative change CT/Low Dose CT Lung Screening IMPRESSION: Lung-RADS category 2 - Continue annual screening with LDCT in [...] finding unrelated to lung cancer) Electronically Signed: Todd Pham MD at 17:47 EST , CC: Dr. Tomas Peña, Aircraft Shipping Checker: Signed Normal [facility] CT for calcium scoring WO nm ntrast and CTA W contrast IV Heart and coronary arterieson 01-14-2023 1. Coronary artery calcium score of 471*. *Coronary artery calcium scoring may be helpful in predicting the risk for future coronary heart disease events. According to the [employer] Clinical Expert Consensus Task Force, such testing provides important prognostic information in patients with more than one coronary heart disease risk factor. The coronary artery calcium score correlates with the annual risk of a non-fatal myocardial infarction or coronary heart disease . Coronary artery score Annual Risk 0-99 0.4% 100-399 1.3% >400 2.4% These three breakpoints correspond to lower, intermediate and high risk states for future coronary events. Such information should be used, along with appropriate clinical judgment, to make decisions regarding the intensity of risk factor management strategies to treat blood lipids and to modify other non-lipid coronary risk factors. Reference: Wasco P et al. Circulation. 2007; 115:402-426 MACRO: None. Signed by: Bertin White 01/14/2023 1:51 PM Dictation workstation: [id number] JUD Interpreted By: Bertin White, STUDY: CT CARDIAC SCORING WO IV CONTRAST; 01/13/2023 1:49 pm INDICATION: Signs/Symptoms:CAD. COMPARISON: None. ACCESSION NUMBER(S): [id number] ORDERING CLINICIAN: TOMAS PEÑA TECHNIQUE: Using prospective ECG gating, CT scan of the coronary arteries was performed without intravenous contrast. Coronary calcium scoring was performed according to the method of Agatston. FINDINGS: The score and distribution of calcium in the coronary arteries is as follows: LM: 0. LAD: 366. LCx: 60. RCA: 45. Total: 471. The visualized segments of the lungs are normally expanded. The visualized mid/lower ascending thoracic aorta measures 3.3 cm in diameter. The heart is mildly enlarged. No pericardial effusion is present. No gross evidence of mediastinal or hilar lymphadenopathy is identified. [facility] Bertin White MD - 01/14/2023 Interpreted By: Bertin White, STUDY: CT CARDIAC SCORING WO IV CONTRAST; 01/13/2023 1:49 pm INDICATION: Signs/Symptoms:CAD. COMPARISON: None. ACCESSION NUMBER(S): [id number] ORDERING CLINICIAN: TOMAS PEÑA TECHNIQUE: Using prospective ECG gating, CT scan of the coronary arteries was performed without intravenous contrast. Coronary calcium scoring was performed according to the method of Agatston. FINDINGS: The score and distribution of calcium in the coronary arteries is as follows: LM: 0. LAD: 366. LCx: 60. RCA: 45. Total: 471. The visualized segments of the lungs are normally expanded. The visualized mid/lower ascending thoracic aorta measures 3.3 cm in diameter. The heart is mildly enlarged. No pericardial effusion is present. No gross evidence of mediastinal or hilar lymphadenopathy is identified. IMPRESSION: 1. Coronary artery calcium score of 471*. *Coronary artery calcium scoring may be helpful in predicting the risk for future coronary heart disease events. According to the [employer] Clinical Expert Consensus Task Force, such testing provides important prognostic information in patients with more than one coronary heart disease risk factor. The coronary artery calcium score correlates with the annual risk of a non-fatal myocardial infarction or coronary heart disease . Coronary artery score Annual Risk 0-99 0.4% 100-399 1.3% >400 2.4% These three breakpoints correspond to lower, intermediate and high risk states for future coronary events. Such information should be used, along with appropriate clinical judgment, to make decisions regarding the intensity of risk factor management strategies to treat blood lipids and to modify other non-lipid coronary risk factors. Reference: Wasco P et al. Circulation. 2007; 115:402-426 MACRO: None. Signed by: Bertin White 01/14/2023 1:51 PM Dictation workstation: [id number] [facility] Work Phone: CT for calcium scoring WO co ntrast and CTA W contrast IV Heart and coronary arteriesOrdered By: Bertin White on 01-14-2023 [facility] Work Phone: CT CARDIAC SCORING WO IV CON TRASTon 01-13-2023 CT CARDIAC SCORING WO IV CONTRAST Interpreted By: Bertin White, STUDY: CT CARDIAC SCORING WO IV CONTRAST; 01/13/2023 1:49 pm INDICATION: Signs/Symptoms:CAD. COMPARISON: None. ACCESSION NUMBER(S): [id number] ORDERING CLINICIAN: TOMAS PEÑA TECHNIQUE: Using prospective ECG gating, CT scan of the coronary arteries was performed without intravenous contrast. Coronary calcium scoring was performed according to the method of Agatston. FINDINGS: The score and distribution of calcium in the coronary arteries is as follows: LM: 0. LAD: 366. LCx: 60. RCA: 45. Total: 471. The visualized segments of the lungs are normally expanded. The visualized mid/lower ascending thoracic aorta measures 3.3 cm in diameter. The heart is mildly enlarged. No pericardial effusion is present. No gross evidence of mediastinal or hilar lymphadenopathy is identified. IMPRESSION: 1. Coronary artery calcium score of 471*. *Coronary artery calcium scoring may be helpful in predicting the risk for future coronary heart disease events. According to the [employer] Clinical Expert Consensus Task Force, such testing provides important prognostic information in patients with more than one coronary heart disease risk factor. The coronary artery calcium score correlates with the annual risk of a non-fatal myocardial infarction or coronary heart disease . Coronary artery score Annual Risk 0-99 0.4% 100-399 1.3% >400 2.4% These three breakpoints correspond to lower, intermediate and high risk states for future coronary events. Such information should be used, along with appropriate clinical judgment, to make decisions regarding the intensity of risk factor management strategies to treat blood lipids and to modify other non-lipid coronary risk factors. Reference: Wasco P et al. Circulation. 2007; 115:402-426 MACRO: None. Signed by: Bertin White 01/14/2023 1:51 PM Dictation workstation: [id number] [facility] Comment on above: Order Comment: SCHED ULED W/ PATIENTS FAXED FROM OFFICE CT for calcium scoring WO co ntrast and CTA W contrast IV Heart and coronary arterieson 01-13-2023 Radiology Study observation (narrative) [facility] Work Phone: C-REACT PROT HIGH SENS(hsCRP ) ([id number])Ordered By: Guest Room Inspector on 09-13-2022 CRP High sensitivity method [Mass/Vol] 3.58 mg/L Abnormal 0.00-3.00 [facility]; [facility] Work Phone: Comment on above: Relative Risk for Fu ture Cardiovascular Event Low <1.00 Average 1.00 - 3.00 High >3.00 PATIENT WAS FASTINGP ERFORMED BY: [facility] Ggbrfk2938 [facility] [id number] CBC with auto diff ([id number])Or dered By: Guest Room Inspector on 09-13-2022 Basophils (Bld) [#/Vol] 0.1 10*3/uL Normal 0.0-0.2 [facility]; [facility] Work Phone: Comment on above: PATIENT WAS FASTINGP ERFORMED BY: [facility] [address] [place] [id number] Basophils/100 WBC (Bld) 1 % Normal [facility]; [facility] Work Phone: Comment on above: PATIENT WAS FASTINGP ERFORMED BY: [facility] [address] [place] [id number] Eosinophils (Bld) [#/Vol] 0.4 10*3/uL Normal 0.0-0.4 [facility]; [facility] Work Phone: Comment on above: PATIENT WAS FASTINGP ERFORMED BY: [facility] [address]wb[address] [facility] [place] [id number] Eosinophils/100 WBC (Bld) 6 % Normal [facility]; [facility] Work Phone: Comment on above: PATIENT WAS FASTINGP ERFORMED BY: [facility] [address] [facility] [id number] Erythrocyte distribution width (RBC) [Ratio] 12.7 % Normal 11.6-15.4 [facility]; [facility] Work Phone: Comment on above: PATIENT WAS FASTINGP ERFORMED BY: [facility] [address] [facility] [id number] Hematocrit (Bld) [Volume fraction] 41.6 % Normal 37.5-51.0 [facility]; [facility] Work Phone: Comment on above: PATIENT WAS FASTINGP ERFORMED BY: [facility] T[address]vg[address] [facility] [id number] Hemoglobin (Bld) [Mass/Vol] 13.6 g/dL Normal 13.0-17.7 [facility]; [facility] Work Phone: Comment on above: PATIENT WAS FASTINGP ERFORMED BY: CB [facility] [address] [place] [id number] Immature granulocytes (Bld) [#/Vol] 0.0 10*3/uL Normal 0.0-0.1 [facility]; [facility] Work Phone: Comment on above: PATIENT WAS FASTINGP ERFORMED BY: ALEXYS Lab[facility] Pandey[address] [place] [id number] Immature granulocytes/100 WBC (Bld) 0 % Normal [facility]; [facility] Work Phone: Comment on above: PATIENT WAS FASTINGP ERFORMED BY: [facility] RiverZwwowc0579 [address] [place] [id number] Lymphocytes (Bld) [#/Vol] 1.5 10*3/uL Normal 0.7-3.1 [facility]; [facility] Work Phone: Comment on above: PATIENT WAS FASTINGP ERFORMED BY: ALEXYS Lab[facility] Lpdwja5[address]M[facility] Hospital [place]in [place] [id number] Lymphocytes/100 WBC (Bld) 24 % Normal [facility]; [facility] Work Phone: Comment on above: PATIENT WAS FASTINGP ERFORMED BY: [facility] [facility] [place] [id number] MCH (RBC) [Entitic mass] 29.1 pg Normal 26.6-33.0 [facility]; [facility] Work Phone: Comment on above: PATIENT WAS FASTINGP ERFORMED BY: [facility] [address] [facility] [place] [id number] MCHC (RBC) [Mass/Vol] 32.7 g/dL Normal 31.5-35.7 [facility]; [facility] Work Phone: Comment on above: PATIENT WAS FASTINGP ERFORMED BY: [facility] [address] [facility] Hospital[facility] [place] [id number] MCV (RBC) [Entitic vol] 89 fL Normal 79-97 [facility]; [facility] Work Phone: Comment on above: PATIENT WAS FASTINGP ERFORMED BY: [facility] Vnssdv5[address] [place] [id number] Monocytes (Bld) [#/Vol] 0.9 10*3/uL Normal 0.1-0.9 [facility]; [facility] Work Phone: Comment on above: PATIENT WAS FASTINGP ERFORMED BY: CB [facility] X[address]ttt4[address] [place] [id number] Monocytes/100 WBC (Bld) 15 % Normal [facility]; [facility] Work Phone: Comment on above: PATIENT WAS FASTINGP ERFORMED BY: CB [facility] Nlpfld3929 [address] RoadDublin [place] [id number] Neutrophils (Bld) [#/Vol] 3.3 10*3/uL Normal 1.4-7.0 [facility]; [facility] Work Phone: Comment on above: PATIENT WAS FASTINGP ERFORMED BY: ALEXYS [facility] Biqdez1573 [address]Dublin [place] [id number] Neutrophils/100 WBC (Bld) 54 % Normal [facility]; [facility] Work Phone: Comment on above: PATIENT WAS FASTINGP ERFORMED BY: CB [facility] Danxax5014 [address] RoadDublin [place] [id number] Platelets (Bld) [#/Vol] 157 10*3/uL Normal 150-450 [facility]; [facility] Work Phone: Comment on above: PATIENT WAS FASTINGP ERFORMED BY: CB [facility] Lfnvgb4412 [address] RoadDublin [place] [id number] RBC (Bld) [#/Vol] 4.68 10*6/uL Normal 4.14-5.80 Compr ehensive Internal Medicine; [facility] Work Phone: Comment on above: PATIENT WAS FASTINGP ERFORMED BY: CB [facility] Mayjih1185 [address] RoadDublin [place] [id number] WBC (Bld) [#/Vol] 6.1 10*3/uL Normal 3.4-10.8 Compre hensive Internal Medicine; [facility] Work Phone: Comment on above: PATIENT WAS FASTINGP ERFORMED BY: CB [facility] Nuvylh7262 [address]Dublin [place] [id number] HGB A1C (00395)Ordered By: S ystem Single Needle Tufting Machine Operator on 09-13-2022 HbA1c (Bld) [Mass fraction] 6.2 % Abnormal 4.8-5.6 [facility]; [facility] Work Phone: Comment on above: . Prediabetes: 5.7 - 6.4 Diabetes: >6.4 Glycemic control for adults with diabetes: <7.0 PATIENT WAS FASTINGP ERFORMED BY: ALEXYS [facility] Zgtcpk[address] [facility] [id number] LIPID PANEL (75954)Ordered B y: Guest Room Inspector on 09-13-2022 Cholesterol [Mass/Vol] 134 mg/dL Normal 100-199 [facility]; [facility] Work Phone: Comment on above: PATIENT WAS FASTINGP ERFORMED BY: ALEXYS Cornelllin[address] [facility] [id number] Cholesterol in HDL [Mass/Vol] 43 mg/dL Normal [facility]; [facility] Work Phone: Comment on above: PATIENT WAS FASTINGP ERFORMED BY: ALXEYS [facility] CornellVtunkd[address] [facility] [place] [id number] Triglyceride [Mass/Vol] 111 mg/dL Normal 0-149 [facility]; [facility] Work Phone: Comment on above: PATIENT WAS FASTINGP ERFORMED BY: ALEXYS [facility] CornellCzcxtz9[address] [facility] [place] [id number] LIPID PANEL (63856) 20 mg/dL Normal 5-40 Compr ehensive Internal Medicine; [facility] Work Phone: Comment on above: PATIENT WAS FASTINGP ERFORMED BY: ALEXYS Labcorose marie Irpjld9316 [address]Dublin [place] [id number] LIPID PANEL (68309) 71 mg/dL Normal 0-99 Compr ehensive Internal Medicine; [facility] Work Phone: Comment on above: PATIENT WAS FASTINGP ERFORMED BY: ALEXYS Labcorose marie Vebpch[address] [facility] [place] [id number] LIPID PANEL (88210) 1.7 {ratio} Normal 0.0-3.6 [facility]; [facility] Work Phone: Comment on above: LDL/HDL Ratio Men Wo men 1/2 Avg.Risk 1.0 1.5 Avg.Risk 3.6 3.2 2X Avg.Risk 6.2 5.0 3X Avg.Risk 8.0 6.1 PATIENT WAS FASTINGP ERFORMED BY: ALEXYS [facility] Kttefi9696 [address] RoadDublin [place] [id number] METABOLIC PANEL, COMPREHENSI VE (73771)Ordered By: Guest Room Inspector on 09-13-2022 Albumin [Mass/Vol] 4.5 g/dL Normal 3.7-4.7 [facility] Internal Medicine; [facility] Work Phone: Comment on above: PATIENT WAS FASTINGP ERFORMED BY: ALEXYS [facility] Geatjj3653 [address]Dublin [place] [id number] Albumin/Globulin [Mass ratio] 1.4 {ratio} Normal 1.2-2.2 [facility]; [facility] Work Phone: Comment on above: PATIENT WAS FASTINGP ERFORMED BY: ALEXYS [facility] Gzosyw7313 [address] RoadDublin [place] [id number] ALP [Catalytic activity/Vol] 124 U/L Abnormal 44-121 [facility]; [facility] Work Phone: Comment on above: PATIENT WAS FASTINGP ERFORMED BY: ALEXYS [facility] Vwvmje7914 [address] RoadDublin [place] [id number] ALT [Catalytic activity/Vol] 37 U/L Normal 0-44 [facility]; [facility] Work Phone: Comment on above: PATIENT WAS FASTINGP ERFORMED BY: CB [facility] Dutqkc4991 [address] RoadDublin [place] [id number] AST [Catalytic activity/Vol] 39 U/L Normal 0-40 [facility]; [facility] Work Phone: Comment on above: PATIENT WAS FASTINGP ERFORMED BY: ALEXYS [facility] Xlcnjn9986 [address] RoadDublin [place] [id number] Bilirubin [Mass/Vol] 0.5 mg/dL Normal 0.0-1.2 Comp rehensive Internal Medicine; [facility] Work Phone: Comment on above: PATIENT WAS FASTINGP ERFORMED BY: ALEXYS [facility] Psdkwn6801 [address]blin [place] [id number] Calcium [Mass/Vol] 9.6 mg/dL Normal 8.6-10.2 [facility]; [facility] Work Phone: Comment on above: PATIENT WAS FASTINGP ERFORMED BY: [facility] Ctoqck2441 [address] Roadblin [place] [id number] Chloride [Moles/Vol] 101 mmol/L Normal 96-106 [facility] rehensive Internal Medicine; [facility] Work Phone: Comment on above: PATIENT WAS FASTINGP ERFORMED BY: LabcoHealth[facility] Toms RiverKuyctk2342 [address] RoadMission Hospital [place]in [place] [id number] CO2 [Moles/Vol] 21 mmol/L Normal 20-29 Comprehen [facility]; [facility] Work Phone: Comment on above: PATIENT WAS FASTINGP ERFORMED BY: [facility] Xyeykj[address] [facility] [place] [id number] Creatinine [Mass/Vol] 0.99 mg/dL Normal 0.76-1.27 [facility]; [facility] Work Phone: Comment on above: PATIENT WAS FASTINGP ERFORMED BY: [facility] Zkzdow[address] [facility] [id number] GFR/1.73 sq M.predicted among non-blacks MDRD (S/P/Bld) [Vol rate/Area] 77 mL/min/{1.73_m2} Normal Comprehensiv e Internal Medicine; [facility] Work Phone: Comment on above: PATIENT WAS FASTINGP ERFORMED BY: [facility] Blrgtf[address]23 [address] [facility]bl[facility] [place] [id number] Globulin (S) [Mass/Vol] 3.2 g/dL Normal 1.5-4.5 [facility]; [facility] Work Phone: Comment on above: PATIENT WAS FASTINGP ERFORMED BY: ALEXYS [facility] Wdwqrv5984 [address] RoadDublin [place] [id number] Glucose [Mass/Vol] 96 mg/dL Normal 70-99 [facility]; [facility] Work Phone: Comment on above: PATIENT WAS FASTINGP ERFORMED BY: CB [facility] Pmnixr0864 [address] RoadDublin [place] [id number] Potassium [Moles/Vol] 4.4 mmol/L Normal 3.5-5.2 [facility] Internal Medicine; [facility] Work Phone: Comment on above: PATIENT WAS FASTINGP ERFORMED BY: CB [facility] Qyazni2749 [address] RoadDublin [place] [id number] Protein [Mass/Vol] 7.7 g/dL Normal 6.0-8.5 [facility] Internal [facility]; [facility] Work Phone: Comment on above: PATIENT WAS FASTINGP ERFORMED BY: CB [facility] Sxzgku0649 [address] RoadDublin [place] [id number] Sodium [Moles/Vol] 138 mmol/L Normal 134-144 [facility] Internal [facility]; [facility] Work Phone: Comment on above: PATIENT WAS FASTINGP ERFORMED BY: CB [facility] Znwnvt2402 [address] RoadDublin [place] [id number] Urea nitrogen [Mass/Vol] 15 mg/dL Normal 8-27 [facility] Internal [facility]; [facility] Work Phone: Comment on above: PATIENT WAS FASTINGP ERFORMED BY: CB [facility] Qpywwd4864 [address] RoadDublin [place] [id number] Urea nitrogen/Creatinine [Mass ratio] 15 mg/mg Normal 10-24 [facility] Internal [facility]; [facility] Work Phone: Comment on above: PATIENT WAS FASTINGP ERFORMED BY: CB [facility] Gnuytp8007 [address] RoadDublin [place] [id number] MICROALBUMINOrdered By: Syst em Single Needle Tufting Machine Operator on 09-13-2022 Albumin DL <= 20 mg/L (U) [Mass/Vol] 6.9 ug/mL Normal [facility]; [facility] Work Phone: Comment on above: PATIENT WAS FASTINGP ERFORMED BY: ALEXYS [facility] Iynijs[address] [facility]in [place] [id number] Albumin/Creatinine (U) [Mass ratio] 19 {mg/g_creat} Normal 0-29 [facility]; [facility] Work Phone: Comment on above: Normal: 0 - 29 Moder ately increased: 30 - 300 Severely increased: >300 PATIENT WAS FASTINGP ERFORMED BY: ALEXYS [facility] Zadgng3433 [address] RoadMission [facility] [place]in [place] [id number] Creatinine (U) [Mass/Vol] 35.6 mg/dL Normal [facility]; [facility] Work Phone: Comment on above: PATIENT WAS FASTINGP ERFORMED BY: ALEXYS [facility] Olslxe[address] [facility] [id number] TSH (14521)Ordered By: Syste m Single Needle Tufting Machine Operator on 09-13-2022 TSH Qn 4.100 {uIU/mL} Normal 0.450-4.500 [facility] Internal [facility]; [facility] Work Phone: Comment on above: PATIENT WAS FASTINGP ERFORMED BY: ALEXYS [facility] Xzxlug5949 [facility]in [place] [id number] CBC W/AUTO DIFF WBC ([id number])O rdered By: Guest Room Inspector on 06-13-2022 Basophils (Bld) [#/Vol] 0.1 10*3/uL Normal 0.0-0.2 [facility]; [facility] Work Phone: Comment on above: PATIENT WAS FASTINGP ERFORMED BY: [facility] Aabqdy[address] [facility]bl[facility] [place] [id number] Basophils/100 WBC (Bld) 1 % Normal [facility]; [facility] Work Phone: Comment on above: PATIENT WAS FASTINGP ERFORMED BY: ALEXYS [facility] Dqyzbr4033 [address] [facility]bl[facility] [place] [id number] Eosinophils (Bld) [#/Vol] 0.5 10*3/uL Abnormal 0.0-0.4 [facility]; [facility] Work Phone: Comment on above: PATIENT WAS FASTINGP ERFORMED BY: ALEXYS [facility] Zsrmzw2281 [address] RoadDublin [place] [id number] Eosinophils/100 WBC (Bld) 7 % Normal [facility]; [facility] Work Phone: Comment on above: PATIENT WAS FASTINGP ERFORMED BY: CB [facility] Ewurce4299 [address] RoadDublin [place] [id number] Erythrocyte distribution width (RBC) [Ratio] 12.9 % Normal 11.6-15.4 [facility]; [facility] Work Phone: Comment on above: PATIENT WAS FASTINGP ERFORMED BY: ALEXYS [facility] Zqctos4545 [address] RoadDublin [place] [id number] Hematocrit (Bld) [Volume fraction] 42.1 % Normal 37.5-51.0 [facility]; [facility] Work Phone: Comment on above: PATIENT WAS FASTINGP ERFORMED BY: CB [facility] Wtfjnv4973 [address] RoadDublin [place] [id number] Hemoglobin (Bld) [Mass/Vol] 14.1 g/dL Normal 13.0-17.7 [facility]; [facility] Work Phone: Comment on above: PATIENT WAS FASTINGP ERFORMED BY: CB [facility] Zprjio8276 [address]Dublin [place] [id number] Immature granulocytes (Bld) [#/Vol] 0.0 10*3/uL Normal 0.0-0.1 [facility]; [facility] Work Phone: Comment on above: PATIENT WAS FASTINGP ERFORMED BY: CB [facility] Svvgws8289 [address] RoadDublin [place] [id number] Immature granulocytes/100 WBC (Bld) 0 % Normal [facility]; [facility] Work Phone: Comment on above: PATIENT WAS FASTINGP ERFORMED BY: CB [facility] Qfgcfd5901 [address]Dublin [place] [id number] Lymphocytes (Bld) [#/Vol] 1.6 10*3/uL Normal 0.7-3.1 [facility]; [facility] Work Phone: Comment on above: PATIENT WAS FASTINGP ERFORMED BY: ALEXYS Labcorose marie PandeyIxrqer2811 [address] RoadDublin [place] [id number] Lymphocytes/100 WBC (Bld) 23 % Normal [facility]; [facility] Work Phone: Comment on above: PATIENT WAS FASTINGP ERFORMED BY: ALEXYS [facility] Liuyua5586 [address] RoadDublin [place] [id number] MCH (RBC) [Entitic mass] 28.8 pg Normal 26.6-33.0 [facility]; [facility] Work Phone: Comment on above: PATIENT WAS FASTINGP ERFORMED BY: ALEXYS [facility] Cscsrb8389 [address] RoadDublin [place] [id number] MCHC (RBC) [Mass/Vol] 33.5 g/dL Normal 31.5-35.7 [facility] prehensive Internal Medicine; [facility] Work Phone: Comment on above: PATIENT WAS FASTINGP ERFORMED BY: ALEXYS [facility] Rciwjw7664 [address] RoadDublin [place] [id number] MCV (RBC) [Entitic vol] 86 fL Normal 79-97 [facility]; [facility] Work Phone: Comment on above: PATIENT WAS FASTINGP ERFORMED BY: ALEXYS [facility] Lqqtyh5286 [address] RoadDublin [place] [id number] Monocytes (Bld) [#/Vol] 0.9 10*3/uL Normal 0.1-0.9 [facility]; [facility] Work Phone: Comment on above: PATIENT WAS FASTINGP ERFORMED BY: CB [facility] Nmzvsl2294 [address]Dublin [place] [id number] Monocytes/100 WBC (Bld) 14 % Normal [facility]; [facility] Work Phone: Comment on above: PATIENT WAS FASTINGP ERFORMED BY: [facility] Tfeegb8137 [address]Dublin [place] [id number] Neutrophils (Bld) [#/Vol] 3.7 10*3/uL Normal 1.4-7.0 [facility]; [facility] Work Phone: Comment on above: PATIENT WAS FASTINGP ERFORMED BY: ALEXYS Labcorose marie Gurybd5774 [address] RoadDublin [place] [id number] Neutrophils/100 WBC (Bld) 55 % Normal [facility]; [facility] Work Phone: Comment on above: PATIENT WAS FASTINGP ERFORMED BY: ALEXYS [facility] Qzbazq1033 [address] RoadDublin [place] [id number] Platelets (Bld) [#/Vol] 176 10*3/uL Normal 150-450 [facility]; [facility] Work Phone: Comment on above: PATIENT WAS FASTINGP ERFORMED BY: ALEXYS [facility] Asrnvk6438 [address] RoadDublin [place] [id number] RBC (Bld) [#/Vol] 4.90 10*6/uL Normal 4.14-5.[address] [facility]; [facility] Work Phone: Comment on above: PATIENT WAS FASTINGP ERFORMED BY: ALEXYS [facility] Druzdn9668 [address] RoadDublin [place] [id number] WBC (Bld) [#/Vol] 6.7 10*3/uL Normal 3.4-10.8 Compre [facility]; [facility] Work Phone: Comment on above: PATIENT WAS FASTINGP ERFORMED BY: [facility] Djdixa7163 [address]Dublin [place] [id number] HGB A1C ([id number])Ordered By: S ystem Single Needle Tufting Machine Operator on 06-13-2022 HbA1c (Bld) [Mass fraction] 6.2 % Abnormal 4.8-5.6 [facility]; [facility] Work Phone: Comment on above: . Prediabetes: 5.7 - 6.4 Diabetes: >6.4 Glycemic control for adults with diabetes: <7.0 PATIENT WAS FASTINGP ERFORMED BY: ALEXYS [facility] Nsqkkv9825 [address] RoadDublin [place] [id number] LIPID PANEL (33180)Ordered B y: Guest Room Inspector on 06-13-2022 Cholesterol [Mass/Vol] 122 mg/dL Normal 100-199 [facility]erensive [facility]; [facility] Work Phone: Comment on above: PATIENT WAS FASTINGP ERFORMED BY: ALEXYS [facility] Spfqyd2935 [address] RoadDublin [place] [id number] Cholesterol in HDL [Mass/Vol] 39 mg/dL Abnormal [facility]; [facility] Work Phone: Comment on above: PATIENT WAS FASTINGP ERFORMED BY: ALEXYS [facility] Pwszxl7312 [address]Dublin [place] [id number] Triglyceride [Mass/Vol] 102 mg/dL Normal 0-149 [facility]; [facility] Work Phone: Comment on above: PATIENT WAS FASTINGP ERFORMED BY: ALEXYS Labcorose marie Tkaogz3513 [address] [facility] HospitalD[facility] [place] [id number] LIPID PANEL (93443) 19 mg/dL Normal 5-40 Compr ensive Internal Medicine; [facility] Work Phone: Comment on above: PATIENT WAS FASTINGP ERFORMED BY: ALEXYS [facility] Mwztai3458 [address] RoadDublin [place] [id number] LIPID PANEL (56728) 64 mg/dL Normal 0-99 [facility]; [facility] Work Phone: Comment on above: PATIENT WAS FASTINGP ERFORMED BY: CB [facility] Arkivy1415 [address]blin [place] [id number] LIPID PANEL (46210) 1.6 {ratio} Normal 0.0-3.6 [facility]; [facility] Work Phone: Comment on above: LDL/HDL Ratio Men Wo men 1/2 Avg.Risk 1.0 1.5 Avg.Risk 3.6 3.2 2X Avg.Risk 6.2 5.0 3X Avg.Risk 8.0 6.1 PATIENT WAS FASTINGP ERFORMED BY: ALEXYS [facility] Ovngmw3795 [address]blin [place] [id number] METABOLIC PANEL, COMPREHENSI VE (03202)Ordered By: Guest Room Inspector on 06-13-2022 Albumin [Mass/Vol] 4.6 g/dL Normal 3.6-4.6 [facility] Internal Medicine; [facility] Work Phone: Comment on above: PATIENT WAS FASTINGP ERFORMED BY: CB [facility] Kcwsyd1897 [address]Dublin [place] [id number] Albumin/Globulin [Mass ratio] 1.7 {ratio} Normal 1.2-2.2 [facility]; [facility] Work Phone: Comment on above: PATIENT WAS FASTINGP ERFORMED BY: CB [facility] Cdoaxx6482 [address]Dublin [place] [id number] ALP [Catalytic activity/Vol] 111 U/L Normal 44-121 [facility]; [facility] Work Phone: Comment on above: PATIENT WAS FASTINGP ERFORMED BY: CB [facility] Bevyzv8542 [address] RoadDublin [place] [id number] ALT [Catalytic activity/Vol] 47 U/L Abnormal 0-44 [facility]; [facility] Work Phone: Comment on above: PATIENT WAS FASTINGP ERFORMED BY: CB [facility] Oeqswd8788 [address] RoadDublin [place] [id number] AST [Catalytic activity/Vol] 36 U/L Normal 0-40 [facility]; [facility] Work Phone: Comment on above: PATIENT WAS FASTINGP ERFORMED BY: CB [facility] Qliytb4141 [address]Dublin [place] [id number] Bilirubin [Mass/Vol] 0.4 mg/dL Normal 0.0-1.2 [facility] Internal Medicine; [facility] Internal Medicine Work Phone: Comment on above: PATIENT WAS FASTINGP ERFORMED BY: CB [facility] Glvntk4115 [address]Dublin [place] [id number] Calcium [Mass/Vol] 9.0 mg/dL Normal 8.6-10.2 [facility] Internal Medicine; [facility] Internal Medicine Work Phone: Comment on above: PATIENT WAS FASTINGP ERFORMED BY: ALEXYS [facility] Dyzfja4343 [address]Dublin [place] [id number] Chloride [Moles/Vol] 103 mmol/L Normal 96-106 [facility]; [facility] Work Phone: Comment on above: PATIENT WAS FASTINGP ERFORMED BY: CB [facility] Iushxd4247 [address]Dublin [place] [id number] CO2 [Moles/Vol] 23 mmol/L Normal 20-29 Comprehen [facility]; [facility] Work Phone: Comment on above: PATIENT WAS FASTINGP ERFORMED BY: [facility] Gdeuqc7797 [address]Dublin [place] [id number] Creatinine [Mass/Vol] 0.95 mg/dL Normal 0.76-1.27 [facility] Internal Medicine; [facility] Work Phone: Comment on above: PATIENT WAS FASTINGP ERFORMED BY: [facility] Iqsgmt6989 [address]Dublin [place] [id number] GFR/1.73 sq M.predicted among non-blacks MDRD (S/P/Bld) [Vol rate/Area] 80 mL/min/{1.73_m2} Normal Comprehens e Internal Medicine; [facility] Work Phone: Comment on above: PATIENT WAS FASTINGP ERFORMED BY: ALEXYS [facility] Qiajlx4236 [address]Dublin [place] [id number] Globulin (S) [Mass/Vol] 2.7 g/dL Normal 1.5-4.5 [facility]; [facility] Work Phone: Comment on above: PATIENT WAS FASTINGP ERFORMED BY: [facility] Brrhmr0465 [address]Dublin [place] [id number] Glucose [Mass/Vol] 95 mg/dL Normal 70-99 [facility] Internal Medicine; [facility] Work Phone: Comment on above: PATIENT WAS FASTINGP ERFORMED BY: [facility] Bbxmku8005 [address]Dublin [place] [id number] Potassium [Moles/Vol] 4.4 mmol/L Normal 3.5-5.2 [facility] prehensive Internal Medicine; [facility] Work Phone: Comment on above: PATIENT WAS FASTINGP ERFORMED BY: ALEXYS [facility] Cwfjli9063 [address]Dublin [place] [id number] Protein [Mass/Vol] 7.3 g/dL Normal 6.0-8.5 [facility] Internal Medicine; [facility] Work Phone: Comment on above: PATIENT WAS FASTINGP ERFORMED BY: CB [facility] Ltoewj3375 [address]Dublin [place] [id number] Sodium [Moles/Vol] 138 mmol/L Normal 134-144 [facility] Internal Medicine; [facility] Work Phone: Comment on above: PATIENT WAS FASTINGP ERFORMED BY: ALEXYS [facility] Wdrirb7097 [address] RoadDublin [place] [id number] Urea nitrogen [Mass/Vol] 16 mg/dL Normal 8-27 [facility]; [facility] Work Phone: Comment on above: PATIENT WAS FASTINGP ERFORMED BY: CB [facility] Zwipim1902 [address]Dublin [place] [id number] Urea nitrogen/Creatinine [Mass ratio] 17 mg/mg Normal 10-24 [facility]; [facility] Work Phone: Comment on above: PATIENT WAS FASTINGP ERFORMED BY: ALEXYS [facility] Uejqof4007 [address]Dublin [place] [id number] URINALYSIS, W/ MICRO ([id number]) Ordered By: Guest Room Inspector on 06-13-2022 Appearance (U) Clear Normal Comprehens alberto Internal Medicine; [facility] Work Phone: Comment on above: PATIENT WAS FASTINGP ERFORMED BY: CB [facility] Vgzlag0711 [address]Dublin [place] [id number] Bilirubin Ql (U) Negative Normal Comprehe nsive Internal Medicine; [facility] Work Phone: Comment on above: PATIENT WAS FASTINGP ERFORMED BY: CB [facility] Oeubrn6840 [address]Dublin [place] [id number] Color (U) Yellow Normal [facility]; [facility] Work Phone: Comment on above: PATIENT WAS FASTINGP ERFORMED BY: ALEXYS Pandey6370 [address] [place] [id number] Glucose Ql (U) Negative Normal Comprehens alberto Internal Medicine; [facility] Work Phone: Comment on above: PATIENT WAS FASTINGP ERFORMED BY: ALEXYS Pandey6370 [address] [place] [id number] Hemoglobin Ql (U) Negative Normal Compreh ensive Internal Medicine; [facility] Work Phone: Comment on above: PATIENT WAS FASTINGP ERFORMED BY: ALEXYS Pandey6370 [address] [place] [id number] Ketones Ql (U) Negative Normal Comprehens alberto Internal Medicine; [facility] Work Phone: Comment on above: PATIENT WAS FASTINGP ERFORMED BY: ALEXYS Pandey6[address] [facility] [place] [id number] Leukocyte esterase Test strip Ql (U) Negative Normal [facility]; [facility] Work Phone: Comment on above: PATIENT WAS FASTINGP ERFORMED BY: ALEXYS Pandey6[address] [facility] [id number] Microscopic observation LM Nom (Urine sed) MICRON Normal [facility]; [facility] Work Phone: Comment on above: Microscopic follows if indicated. PATIENT WAS FASTINGP ERFORMED BY: ALEXYS Cornelllin6370 [address] [facility] [place] [id number] Microscopic observation LM Nom (Urine sed) See below: Normal [facility]; [facility] Work Phone: Comment on above: Microscopic was nuria cated and was performed. PATIENT WAS FASTINGP ERFORMED BY: ALEXYS Cornelllin6370 [address]Dublin [place] [id number] Nitrite Ql (U) Negative Normal Comprehens alberto [facility]; [facility] Work Phone: Comment on above: PATIENT WAS FASTINGP ERFORMED BY: ALEXYS Cornelllin6370 [facility] [id number] pH (U) 7.0 [pH] Normal 5.0-7.5 [facility]; [facility] Work Phone: Comment on above: PATIENT WAS FASTINGP ERFORMED BY: ALEXYS Werner Yonvyo3045 [facility] [id number] Protein Ql (U) Negative Normal Comprehens al[facility]to [facility]; [facility] Work Phone: Comment on above: PATIENT WAS FASTINGP ERFORMED BY: [facility] Atayrl0251 [facility] [id number] Specific gravity (U) [Rel density] 1.007 1 Normal 1.005-1.030 [facility]; [facility] Work Phone: Comment on above: PATIENT WAS FASTINGP ERFORMED BY: [facility] Cnbkcu9611 [facility] [id number] Urobilinogen (U) [Mass/Vol] 0.2 mg/dL Normal 0.2-1.0 [facility]; [facility] Work Phone: Comment on above: PATIENT WAS FASTINGP ERFORMED BY: [facility] Xflvwq0328 [facility] [id number] C-REACT PROT HIGH SENS(hsCRP ) (29404)Ordered By: Guest Room Inspector on 03-07-2022 CRP High sensitivity method [Mass/Vol] 1.32 mg/L Normal 0.00-3.00 [facility]; [facility] Work Phone: Comment on above: Relative Risk for Fu ture Cardiovascular Event Low <1.00 Average 1.00 - 3.00 High >3.00 PATIENT WAS FASTINGP ERFORMED BY: [facility]6370 [facility] [id number] HGB A1C (33025)Ordered By: S ystem Single Needle Tufting Machine Operator on 03-07-2022 HbA1c (Bld) [Mass fraction] 6.2 % Abnormal 4.8-5.6 [facility]; [facility] Work Phone: Comment on above: . Prediabetes: 5.7 - 6.4 Diabetes: >6.4 Glycemic control for adults with diabetes: <7.0 PATIENT WAS FASTINGP ERFORMED BY: ALEXYS [facility] Vxmajm4862 [address] RoadDublin [place] [id number] LIPID PANEL (12537)Ordered B y: Guest Room Inspector on 03-07-2022 Cholesterol [Mass/Vol] 136 mg/dL Normal 100-199 [facility]; [facility] Work Phone: Comment on above: PATIENT WAS FASTINGP ERFORMED BY: CB [facility] Evpsmi7652 [address] RoadDublin [place] [id number] Cholesterol in HDL [Mass/Vol] 44 mg/dL Normal [facility]; [facility] Work Phone: Comment on above: PATIENT WAS FASTINGP ERFORMED BY: ALEXYS [facility] Qipiwb1078 [address] RoadDublin [place] [id number] Triglyceride [Mass/Vol] 110 mg/dL Normal 0-149 [facility]; [facility] Work Phone: Comment on above: PATIENT WAS FASTINGP ERFORMED BY: ALEXYS [facility] Dcumzl6238 [address] RoadDublin [place] [id number] LIPID PANEL (11426) 20 mg/dL Normal 5-40 [facility]; [facility] Work Phone: Comment on above: PATIENT WAS FASTINGP ERFORMED BY: CB [facility] Ykwedy4566 [address] RoadDublin [place] [id number] LIPID PANEL (54034) 72 mg/dL Normal 0-99 [facility]; [facility] Work Phone: Comment on above: PATIENT WAS FASTINGP ERFORMED BY: CB [facility] Cazzlq3795 [address] RoadDublin [place] [id number] LIPID PANEL (24578) 1.6 {ratio} Normal 0.0-3.6 [facility] [place]; [facility] Work Phone: Comment on above: LDL/HDL Ratio Men Wo men 1/2 Avg.Risk 1.0 1.5 Avg.Risk 3.6 3.2 2X Avg.Risk 6.2 5.0 3X Avg.Risk 8.0 6.1 PATIENT WAS FASTINGP ERFORMED BY: [facility] Xpihsd0621 [address] [facility] [place] [id number] TSH (THYROID STIMULATING HOR ADRIAN) ([id number])Ordered By: Guest Room Inspector on 03-07-2022 TSH Qn 4.500 {uIU/mL} Normal 0.450-4.500 [facility] Internal Medicine; [facility] Work Phone: Comment on above: PATIENT WAS FASTINGP ERFORMED BY: ALEXYS [facility] Yqlyls[address]84 [address] [facility] [id number] C-REACTIVE PROTEIN ([id number])Or dered By: Guest Room Inspector on 11-17-2021 CRP [Mass/Vol] 1 mg/L Normal 0-10 [facility] Internal Medicine; [facility] Work Phone: Comment on above: PATIENT NOT FASTINGP ERFORMED BY: ALEXYS [facility] Aglcdp1710 [facility] [id number] FREE TRIIDOTHYRONINE (T3) ([id number] 1814)Ordered By: Guest Room Inspector on 11-17-2021 Free T3 [Mass/Vol] 2.7 pg/mL Normal 2.0-4.4 [facility] Internal Medicine; [facility] Work Phone: Comment on above: PATIENT NOT FASTINGP ERFORMED BY: ALEXYS [facility] Ijuahi[address] [facility] [place] [id number] SED RATE ERYTHROCYTE (27009) Ordered By: Guest Room Inspector on 11-17-2021 ESR (Bld) [Velocity] 10 mm/h Normal 0-30 [facility] [place]; [facility] Work Phone: Comment on above: PATIENT NOT FASTINGP ERFORMED BY: [facility] Xqwamn3937 [address] [facility] [place] [id number] T4, FREE (THYROXINE) ([id number]) Ordered By: Guest Room Inspector on 11-17-2021 Free T4 [Mass/Vol] 1.23 ng/dL Normal 0.82-1.77 [facility] Internal Medicine; [facility] Work Phone: Comment on above: PATIENT NOT FASTINGP ERFORMED BY: ALEXYS [facility] Gopwtf6877 [address]blin [place] [id number] TSH (90392)Ordered By: Omero m Single Needle Tufting Machine Operator on 11-17-2021 TSH Qn 3.600 {uIU/mL} Normal 0.450-4.500 [facility]; [facility] Work Phone: Comment on above: PATIENT NOT FASTINGP ERFORMED BY: ALEXYS [facility] Biywrd2203 [address] RoadDublin [place] [id number] CBC W/AUTO DIFF WBC ([id number])O rdered By: Guest Room Inspector on 11-08-2021 Basophils (Bld) [#/Vol] 0.1 10*3/uL Normal 0.0-0.2 [facility]; [facility] Work Phone: Comment on above: PATIENT WAS FASTINGP ERFORMED BY: ALEXYS [facility] Gpbzmj0761 [address] RoadDuin [place] [id number] Basophils/100 WBC (Bld) 1 % Normal [facility]; [facility] Work Phone: Comment on above: PATIENT WAS FASTINGP ERFORMED BY: ALEXYS [facility] Jgjplh6433 [address] RoadDublin [place] [id number] Eosinophils (Bld) [#/Vol] 0.5 10*3/uL Abnormal 0.0-0.4 [facility]; [facility] Work Phone: Comment on above: PATIENT WAS FASTINGP ERFORMED BY: ALEXYS [facility] Welcmb6223 [address]bl[address] [place] [id number] Eosinophils/100 WBC (Bld) 6 % Normal [facility]; [facility] Work Phone: Comment on above: PATIENT WAS FASTINGP ERFORMED BY: ALEXYS [facility] Uedoxd3535 [address] [facility] [place] [id number] Erythrocyte distribution width (RBC) [Ratio] 12.7 % Normal 11.6-15.4 [facility]; [facility] Work Phone: Comment on above: PATIENT WAS FASTINGP ERFORMED BY: ALEXYS [facility] Pyqvzv4170 [address] [facility] [id number] Hematocrit (Bld) [Volume fraction] 40.4 % Normal 37.5-51.0 [facility]; [facility] Work Phone: Comment on above: PATIENT WAS FASTINGP ERFORMED BY: ALEXYS Teeann Raersz2734 [facility] [id number] Hemoglobin (Bld) [Mass/Vol] 13.4 g/dL Normal 13.0-17.7 [facility]; [facility] Work Phone: Comment on above: PATIENT WAS FASTINGP ERFORMED BY: ALEXYS Teekelin Ekrkbl2270 [facility] [id number] Immature granulocytes (Bld) [#/Vol] 0.0 10*3/uL Normal 0.0-0.1 [facility]; [facility] Work Phone: Comment on above: PATIENT WAS FASTINGP ERFORMED BY: ALEXYS Cornelllin6370 [facility] [id number] Immature granulocytes/100 WBC (Bld) 0 % Normal [facility]; [facility] Work Phone: Comment on above: PATIENT WAS FASTINGP ERFORMED BY: ALEXYS Teeann CornellAqetrg9345 [facility] [id number] Lymphocytes (Bld) [#/Vol] 1.5 10*3/uL Normal 0.7-3.1 [facility]; [facility] Work Phone: Comment on above: PATIENT WAS FASTINGP ERFORMED BY: ALEXYS Teekelin Kwfquk5315 [facility] [id number] Lymphocytes/100 WBC (Bld) 19 % Normal [facility]; [facility] Work Phone: Comment on above: PATIENT WAS FASTINGP ERFORMED BY: ALEXYS Teeann CornellBczbpo7902 [facility] [id number] MCH (RBC) [Entitic mass] 29.3 pg Normal 26.6-33.0 [facility]; [facility] Work Phone: Comment on above: PATIENT WAS FASTINGP ERFORMED BY: ALEXYS Cornelllin6370 [facility]in [place] [id number] MCHC (RBC) [Mass/Vol] 33.2 g/dL Normal 31.5-35.7 [facility] prehensive Internal Medicine; [facility] Work Phone: Comment on above: PATIENT WAS FASTINGP ERFORMED BY: ALEXYS Cornelllin6370 [facility] [place] [id number] MCV (RBC) [Entitic vol] 88 fL Normal 79-97 [facility]; [facility] Work Phone: Comment on above: PATIENT WAS FASTINGP ERFORMED BY: ALEXYS Debbi Fnoppu9819 [facility] [place] [id number] Monocytes (Bld) [#/Vol] 1.2 10*3/uL Abnormal 0.1-0.9 [facility]; [facility] Work Phone: Comment on above: PATIENT WAS FASTINGP ERFORMED BY: ALEXYS Debbi Ruxbmw2555 [facility] [id number] Monocytes/100 WBC (Bld) 15 % Normal [facility]; [facility] Work Phone: Comment on above: PATIENT WAS FASTINGP ERFORMED BY: ALEXYS Debbi Ifiewf9400 [facility] [id number] Neutrophils (Bld) [#/Vol] 4.7 10*3/uL Normal 1.4-7.0 [facility]; [facility] Work Phone: Comment on above: PATIENT WAS FASTINGP ERFORMED BY: Debbi Hyfbii8946 [facility] [place] [id number] Neutrophils/100 WBC (Bld) 59 % Normal [facility]; [facility] Work Phone: Comment on above: PATIENT WAS FASTINGP ERFORMED BY: ALEXYS Debbi Clnvuj6515 [address] [facility] [place] [id number] Platelets (Bld) [#/Vol] 168 10*3/uL Normal 150-450 [facility]; [facility] Work Phone: Comment on above: PATIENT WAS FASTINGP ERFORMED BY: [facility]6370 [address] [facility]in [place] [id number] RBC (Bld) [#/Vol] 4.58 10*6/uL Normal 4.14-5.80 [facility] Internal Medicine; [facility] Internal Medicine Work Phone: Comment on above: PATIENT WAS FASTINGP ERFORMED BY: [facility]6370 [facility]bl[facility] [place] [id number] WBC (Bld) [#/Vol] 8.0 10*3/uL Normal 3.4-10.8 [facility] Internal Medicine; [facility] Internal Medicine Work Phone: Comment on above: PATIENT WAS FASTINGP ERFORMED BY: [facility]6370 [facility] [id number] GGT (GAMMA GLUTAMYLTRANSFERA SE) ([id number])Ordered By: Guest Room Inspector on 11-08-2021 Gamma glutamyl transferase [Catalytic activity/Vol] 15 U/L Normal 0-65 [facility]; [facility] Work Phone: Comment on above: PATIENT WAS FASTINGP ERFORMED BY: [facility]6370 [facility] [id number] METABOLIC PANEL, COMPREHENSI VE (15431)Ordered By: Guest Room Inspector on 11-08-2021 Albumin [Mass/Vol] 4.1 g/dL Normal 3.7-4.7 [facility]; [facility] Work Phone: Comment on above: PATIENT WAS FASTINGP ERFORMED BY: [facility]6370 [facility] [id number] Albumin/Globulin [Mass ratio] 1.5 {ratio} Normal 1.2-2.2 [facility]; [facility] Work Phone: Comment on above: PATIENT WAS FASTINGP ERFORMED BY: [facility]6370 [address] [facility] [place] [id number] ALP [Catalytic activity/Vol] 113 U/L Normal 44-121 [facility]; [facility] Work Phone: Comment on above: PATIENT WAS FASTINGP ERFORMED BY: [facility] Otkwld8456 [address] RoadDublin [place] [id number] ALT [Catalytic activity/Vol] 43 U/L Normal 0-44 [facility]; [facility] Work Phone: Comment on above: PATIENT WAS FASTINGP ERFORMED BY: [facility] Rrddon7770 [address] Roadblin [place] [id number] AST [Catalytic activity/Vol] 40 U/L Normal 0-40 [facility]; [facility] Work Phone: Comment on above: PATIENT WAS FASTINGP ERFORMED BY: [facility] Tchrms0701 [address]blin [place] [id number] Bilirubin [Mass/Vol] 0.5 mg/dL Normal 0.0-1.2 Comp rehensive Internal Medicine; [facility] Work Phone: Comment on above: PATIENT WAS FASTINGP ERFORMED BY: [facility]6370 [address] [facility] [id number] Calcium [Mass/Vol] 9.3 mg/dL Normal 8.6-10.2 [facility] Internal [facility]; [facility] Work Phone: Comment on above: PATIENT WAS FASTINGP ERFORMED BY: [facility] Nfdxja3529 [address] [facility] [place] [id number] Chloride [Moles/Vol] 103 mmol/L Normal 96-106 Comp rehensive Internal Medicine; [facility] Work Phone: Comment on above: PATIENT WAS FASTINGP ERFORMED BY: [facility] Wmpwar4144 [address] [facility] [place] [id number] CO2 [Moles/Vol] 24 mmol/L Normal 20-29 [facility] Internal Medicine; [facility] Work Phone: Comment on above: PATIENT WAS FASTINGP ERFORMED BY: [facility] Izwxll6405 [address] [facility] [place] [id number] Creatinine [Mass/Vol] 0.93 mg/dL Normal 0.76-1.27 [facility] prehensive Internal Medicine; [facility] Work Phone: Comment on above: PATIENT WAS FASTINGP ERFORMED BY: ALEXYS [facility] Cffnrc4496 [address] [facility] [place] [id number] GFR/1.73 sq M.predicted among non-blacks MDRD (S/P/Bld) [Vol rate/Area] 83 mL/min/{1.73_m2} Normal Comprehensiv e Internal Medicine; [facility] Work Phone: Comment on above: PATIENT WAS FASTINGP ERFORMED BY: ALEXYS [facility] Nufcjw1560 [facility] [place] [id number] Globulin (S) [Mass/Vol] 2.8 g/dL Normal 1.5-4.5 [facility]; [facility] Work Phone: Comment on above: PATIENT WAS FASTINGP ERFORMED BY: ALEXYS [facility] Holhpn3171 [address] [facility] [place] [id number] Glucose [Mass/Vol] 90 mg/dL Normal 65-99 [facility]; [facility] Work Phone: Comment on above: Effective Octedith [facility]2021 Glucose reference interval will be changing to: 70 - 99 PATIENT WAS FASTINGP ERFORMED BY: ALEXYS [facility] Ehpitu7741 [facility] [place] [id number] Potassium [Moles/Vol] 4.9 mmol/L Normal 3.5-5.2 [facility] prehensive Internal Medicine; [facility] Work Phone: Comment on above: PATIENT WAS FASTINGP ERFORMED BY: ALEXYS [facility] Lhkshe0924 [facility] [place] [id number] Protein [Mass/Vol] 6.9 g/dL Normal 6.0-8.5 [facility]ive [facility]; [facility] Work Phone: Comment on above: PATIENT WAS FASTINGP ERFORMED BY: ALEXYS [facility] Rmrtmk1520 [address] [facility] [place] [id number] Sodium [Moles/Vol] 140 mmol/L Normal 134-144 [facility] Hospitale hensive Internal Medicine; [facility] Work Phone: Comment on above: PATIENT WAS FASTINGP ERFORMED BY: ALEXYS [facility] Nycbgd6942 [facility] [id number] Urea nitrogen [Mass/Vol] 17 mg/dL Normal 8-27 [facility]; [facility] Work Phone: Comment on above: PATIENT WAS FASTINGP ERFORMED BY: Labkelin Nfvzla1093 [address] [facility] [id number] Urea nitrogen/Creatinine [Mass ratio] 18 mg/mg Normal 10-24 [facility]; [facility] Work Phone: Comment on above: PATIENT WAS FASTINGP ERFORMED BY: [facility] Ddqomg8976 [facility] [id number] MICROALBUMINOrdered By: Sagence em Single Needle Tufting Machine Operator on 11-08-2021 Albumin DL <= 20 mg/L (U) [Mass/Vol] 10.9 ug/mL Normal [facility]; [facility] Work Phone: Comment on above: PATIENT NOT FASTINGP ERFORMED BY: [facility] Imlmzr9310 [facility] [id number] Albumin/Creatinine (U) [Mass ratio] 16 {mg/g_creat} Normal 0-29 [facility]; [facility] Work Phone: Comment on above: Normal: 0 - 29 Moder ately increased: 30 - 300 Severely increased: >300 PATIENT NOT FASTINGP ERFORMED BY: [facility] Mrppdi4266 [facility] [id number] Creatinine (U) [Mass/Vol] 66.9 mg/dL Normal [facility]; [facility] Work Phone: Comment on above: PATIENT NOT FASTINGP ERFORMED BY: [facility] Gwerar1413 [facility] [id number] PSA (PROSTATE SPECIFIC ANTIG EN) (V76.44)Ordered By: Guest Room Inspector on 11-08-2021 Prostate specific Ag [Mass/Vol] 2.5 ng/mL Normal 0.0-4.0 [facility]; [facility] Work Phone: Comment on above: Richard ECLIA methodol ogy. .According to the [place] [employer], Serum PSA shoulddecrease and remain at undetectable levels after radicalprostatectomy. The AUA defines biochemical recurrence as an initialPSA value 0.2 ng/mL or greater followed by a subsequent confirmatoryPSA value 0.2 ng/mL or greater.Values obtained with different assay methods or kits cannot be usedinterchangeably. Results cannot be interpreted as absolute evidenceof the presence or absence of malignant disease. PATIENT WAS FASTINGP ERFORMED BY: ALEXYS [facility] Xytoer0928 [address] HangoDublin [place] [id number] URINALYSIS, W/ MICRO ([id number]) Ordered By: Guest Room Inspector on 11-08-2021 Appearance (U) Clear Normal Comprehens alberto [facility]; [facility] Work Phone: Comment on above: PATIENT NOT FASTINGP ERFORMED BY: ALEXYS [facility] Vmxdto0159 [address] HangoDublin [place] [id number] Bilirubin Ql (U) Negative Normal Comprehe nsive Internal Medicine; [facility] Work Phone: Comment on above: PATIENT NOT FASTINGP ERFORMED BY: ALEXYS [facility] Ticurt8241 [address] HangoDublin [place] [id number] Color (U) Yellow Normal [facility]; [facility] Work Phone: Comment on above: PATIENT NOT FASTINGP ERFORMED BY: ALEXYS [facility] Movjqo3336 [address] Richard Toland Designsblin [place] [id number] Glucose Ql (U) Negative Normal Comprehens alberto [facility]; [facility] Work Phone: Comment on above: PATIENT NOT FASTINGP ERFORMED BY: CB [facility] Fuqfqe3750 [address] HangoDublin [place] [id number] Hemoglobin Ql (U) Negative Normal Compreh ensive Internal Medicine; [facility] Work Phone: Comment on above: PATIENT NOT FASTINGP ERFORMED BY: CB [facility] Mddaxh8898 [address] RoadDublin [place] [id number] Ketones Ql (U) Negative Normal Comprehens alberto [facility]; [facility] Work Phone: Comment on above: PATIENT NOT FASTINGP ERFORMED BY: CB [facility] Wsqncw2895 [address] RoadDublin [place] [id number] Leukocyte esterase Test strip Ql (U) Negative Normal [facility]; [facility] Work Phone: Comment on above: PATIENT NOT FASTINGP ERFORMED BY: ALEXYS Pandey6370 [address]Dublin [place] [id number] Microscopic observation LM Nom (Urine sed) MICRON Normal [facility]; [facility] Work Phone: Comment on above: Microscopic follows if indicated. PATIENT NOT FASTINGP ERFORMED BY: ALEXYS Labkelinrp Uzanfk9992 [address] RoadDublin [place] [id number] Microscopic observation LM Nom (Urine sed) See below: Normal [facility]; [facility] Work Phone: Comment on above: Microscopic was nuria cated and was performed. PATIENT NOT FASTINGP ERFORMED BY: ALEXYS Marie Cornelllin6370 [address]uin [place] [id number] Nitrite Ql (U) Negative Normal Comprehens alberto [facility]; [facility] Work Phone: Comment on above: PATIENT NOT FASTINGP ERFORMED BY: ALEXYS Cornelllin6[address] [facility] [place] [id number] pH (U) 7.0 [pH] Normal 5.0-7.5 [facility]; [facility] Work Phone: Comment on above: PATIENT NOT FASTINGP ERFORMED BY: ALEXYS Labkelinrp Uakejw4357 [address] RoadM[facility] Hospital Mcdowellin [place] [id number] Protein Ql (U) Negative Normal Comprehens alberto Internal Medicine; [facility] Work Phone: Comment on above: PATIENT NOT FASTINGP ERFORMED BY: ALEXYS [facility] Dsrnhs6241 [address] [facility] [place] [id number] Specific gravity (U) [Rel density] 1.013 1 Normal 1.005-1.030 [facility]; [facility] Work Phone: Comment on above: PATIENT NOT FASTINGP ERFORMED BY: AELXYS [facility] Sdcqpd9611 [address] RoadDublin [place] [id number] Urobilinogen (U) [Mass/Vol] 0.2 mg/dL Normal 0.2-1.0 [facility]; [facility] Work Phone: Comment on above: PATIENT NOT FASTINGP ERFORMED BY: ALEXYS [facility] Vphfxd8926 [place] [id number] CNTHERAPYon 09-06-2021 CNTHERAPY OT/PT/Speech Visit (PTWS) ORIANA BONILLA ([id number]) 1940 M Date Time Provider Department 09/06/21 11:00 AM BRITTANY HALE PTERNESTO Date Time Provider Department Center 09/06/2021 11:00 AM [id number], LISA PTERNESTO [place] Reason for Visit: PT Discharge [752] Primary Visit Diagnosis:Acute hip pain, left [M25.552] Allergies As of Date: 09/06/2021 Noted Allergy Reaction CODEINE 11/19/2004 Comments: flushed PENICILLINS 11/19/2004 4 - Hives Date Reviewed: 07/21/2021 Reviewed by: Ashlee Nicholas Ma - Fully Assessed Prescriptions as of 09/07/2021 - glucosamine HCl/chondroitin conde (GLUCOSAMINE-CHONDROIT IN ORAL) Take by mouth. - beta-carotene,A,-vits C,E/mins ([facility] ORAL) Take by mouth. [facility] - naproxen (NAPROSYN) 500 mg tablet Take [...] by mouth. Meds Comments as of 03/16/2018: Normal [facility] CNTHERAPYon 08-31-2021 CNTHERAPY OT/PT/Speech Visit (PTWS) ORIANA BONILLA ([id number]) 1940 M Date Time Provider Department 08/31/21 11:15 AM BRITTANY HALE Date Time Provider Department Center 08/31/2021 11:15 AM [id number] HALE Reason for Visit: Physical Therapy [503] Primary Visit Diagnosis:Acute hip pain, left [M25.552] Allergies As of Date: 08/31/2021 Noted Allergy Reaction CODEINE 11/19/2004 Comments: flushed PENICILLINS 11/19/2004 4 - Hives Date Reviewed: 07/21/2021 Reviewed by: Ashlee Nicholas Ma - Fully Assessed Prescriptions as of 08/31/2021 - glucosamine HCl/chondroitin conde (GLUCOSAMINE-CHONDROIT IN ORAL) Take by mouth. - beta-carotene,A,-vits C,E/mins (EYE HEALTH ORAL) Take by mouth. [facility] - naproxen (NAPROSYN) 500 mg tablet Take [...] by mouth. Meds Comments as of 03/16/2018: Normal [facility] CNTHERAPYon 08-18-2021 CNTHERAPY OT/PT/Speech Visit (PTWS) ORIANA BONILLA ([id number]) 1940 M Date Time Provider Department 08/18/21 2:30 PM BRITTANY HALE PTERNESTO Date Time Provider Department Center 08/18/2021 2:30 PM [id number], LISA PTERNESTO Sandoval Reason for Visit: Physical Therapy [503] Primary Visit Diagnosis:Acute hip pain, left [M25.552] Allergies As of Date: 08/18/2021 Noted Allergy Reaction CODEINE 11/19/2004 Comments: flushed PENICILLINS 11/19/2004 4 - Hives Date Reviewed: 07/21/2021 Reviewed by: Ashlee Nicholas Ma - Fully Assessed Prescriptions as of 08/18/2021 - glucosamine HCl/chondroitin conde (GLUCOSAMINE-CHONDROIT IN ORAL) Take by mouth. - beta-carotene,A,-vits C,E/mins (EYE HEALTH ORAL) Take by mouth. [facility] - naproxen (NAPROSYN) 500 mg tablet Take [...] by mouth. Meds Comments as of 03/16/2018: Normal [facility] CNTHERAPYon 08-09-2021 CNTHERAPY OT/PT/Speech Visit (PTWS) ORIANA BONILLA ([id number]) 1940 M Date Time Provider Department 08/09/21 11:45 AM BRITTANY HALE Date Time Provider Department [place] 08/09/2021 11:45 AM [id number] Reason for Visit: Physical Therapy [503] Primary Visit Diagnosis:Acute hip pain, left [M25.552] Allergies As of Date: 08/09/2021 Noted Allergy Reaction CODEINE 11/19/2004 Comments: flushed PENICILLINS 11/19/2004 4 - Hives Date Reviewed: 07/21/2021 Reviewed by: Ashlee Nicholas Ma - Fully Assessed Prescriptions as of 08/09/2021 - glucosamine HCl/chondroitin conde (GLUCOSAMINE-CHONDROIT IN ORAL) Take by mouth. - beta-carotene,A,-vits C,E/mins (EYE HEALTH ORAL) Take by mouth. [facility] - naproxen (NAPROSYN) 500 mg tablet Take [...] by mouth. Meds Comments as of 03/16/2018: Normal [facility] CNTHERAPYon 08-02-2021 CNTHERAPY OT/PT/Speech Visit (PTWS) ORINAA BONILLA ([id number]) 1940 M Date Time Provider Department 08/02/21 2:15 PM BRITTANY HALE PTERNESTO Date Time Provider Department Center 08/02/2021 2:15 PM [id number], LISA PTERNESTO Discourse Reason for Visit: PT Eval [747] Patient Education [91] Visit Diagnosis:Acute hip pain, left [M25.552] Allergies As of Date: 08/02/2021 Noted Allergy Reaction CODEINE 11/19/2004 Comments: flushed PENICILLINS 11/19/2004 4 - Hives Date Reviewed: 07/21/2021 Reviewed by: Ashlee Nicholas Ma - Fully Assessed Prescriptions as of 08/02/2021 - glucosamine HCl/chondroitin conde (GLUCOSAMINE-CHONDROIT IN ORAL) Take by mouth. - beta-carotene,A,-vits C,E/mins (EYE HEALTH ORAL) Take by mouth. [facility] - naproxen (NAPROSYN) 500 mg tablet [...] by mouth. Meds Comments as of 03/16/2018: Letter Text Normal [facility] CNOVon 07-21-2021 CNOV Office Visit (FAMPWS ) JAMELORIANA Dominique ([id number]) 1940 M Date Time Provider Department 07/21/21 10:00 AM TIMMY HENDERSON During your visit today, we recorded the following information about you: Pulse Respiration Blood pressure Weight 78/minute 12/minute 138/80 82.1 kg Timmy Henderson MD 07/24/2021 10:40 AM Signed Chief Complaint Patient presents with: Hip Pain: LT x 1 month HPI Oriana Dominique Jamel is a 81 year old male who [...] Visit Medication Sig - glucosamine HCl/chondroitin conde (GLUCOSAMINE-CHONDROIT IN ORAL) Take by mouth. - beta-carotene,A,-vits C,E/mins (EYE HEALTH ORAL) Take by mouth. [facility] - atorvastatin (LIPITOR) 40 mg tablet [...] CONSULT TO PHYSICAL THERAPY Timmy Henderson MD Referring Provider: SELF [200] Allergies As of Date: 07/21/2021 Noted Allergy Reaction CODEINE 11/19/2004 Comments: flushed PENICILLINS 11/19/2004 4 - Hives Date Reviewed: 07/21/2021 Reviewed by: Ashlee Nicholas Ma - Fully Assessed Reason for Visit: Hip Pain [136] Cmt: LT x 1 month Primary Visit Diagnosis:Acute hip pain, left [M25.552] Order(s):XR HIP GENERAL 3V PELV/AP/LAT LEFT [[id number]] Order #: [id number] FUTURE naproxen (NAPROSYN) 500 mg tabletTake 1 tablet by mouth twice daily as needed for pain. Take with food.Disp: 60 tabletRfl: 0 CONSULT TO PHYSICAL (more content not included)... Normal [facility] XR HIP 3V PELV+ AP/LAT LTon 07-21-2021 XR HIP 3V PELV+ AP/LAT LT * * *Final Report* * * DATE OF EXAM: Jul 21 2021 11:04AM [id number] - XR HIP 3V PELV+ AP/LAT LT / PROCEDURE REASON: Acute hip pain, left * * * * Physician Interpretation * * * * Indication: Left hip pain Comparison: None A single view of the pelvis and 2 views of the left hip are obtained. There is no acute fracture or dislocation. There is left hip joint space narrowing with marginal osteophytes. Multiple calcified phleboliths in the pelvis. Impression: 1. No acute fracture or dislocation. 2. Degenerative disease of the left hip [employer] Shipping Checker: [facility] Transcribe Date/Time: Jul 21 2021 1:15P Dictated by : FRACISCO SWEET MD This examination was interpreted and the report reviewed and electronically signed by: FRACISCO SWEET MD on Jul 21 2021 1:16PM EST [id number] Normal [facility] XR HIP GENERAL 3V PELV/AP/LA T LEFTon 07-21-2021 [facility] XR Pelvis and Hip - left AP and Lateral frogon 07-21-2021 * * *Final Report* * * DATE OF EXAM: Jul 21 2021 11:04AM [id number] - XR HIP 3V PELV+ AP/LAT LT / PROCEDURE REASON: Acute hip pain, left * * * * Physician Interpretation * * * * Indication: Left hip pain Comparison: None A single view of the pelvis and 2 views of the left hip are obtained. There is no acute fracture or dislocation. There is left hip joint space narrowing with marginal osteophytes. Multiple calcified phleboliths in the pelvis. Impression: 1. No acute fracture or dislocation. 2. Degenerative disease of the left hip [employer] Shipping Checker: [facility] Transcribe Date/Time: Jul 21 2021 1:15P Dictated by : FRACISCO SWEET MD This examination was interpreted and the report reviewed and electronically signed by: FRACISCO SWEET MD on Jul 21 2021 1:16PM EST [email or web address] DIVISION OF RADIOLOGY Provider, [facility] - 07/21/2021 * * *Final Report* * * DATE OF EXAM: Jul 21 2021 11:04AM [id number] - XR HIP 3V PELV+ AP/LAT LT / PROCEDURE REASON: Acute hip pain, left * * * * Physician Interpretation * * * * Indication: Left hip pain Comparison: None A single view of the pelvis and 2 views of the left hip are obtained. There is no acute fracture or dislocation. There is left hip joint space narrowing with marginal osteophytes. Multiple calcified phleboliths in the pelvis. Impression: 1. No acute fracture or dislocation. 2. Degenerative disease of the left hip [employer] Checker: [facility] Transcribe Date/Time: Jul 21 2021 1:15P Dictated by : FRACISCO SWEET MD This examination was interpreted and the report reviewed and electronically signed by: FRACISCO SWEET MD on Jul 21 2021 1:16PM EST [facility] Radiology Study observation (narrative) [facility] XR Pelvis and Hip - left AP and Lateral frogOrdered By: [facility] Provider on 07-21-2021 [facility] Vital Signs Date Time Vital Sign Value Performing Clinician Facility 08-21-2024 10:51-0400 Body height 172.[address] Tomas Peña DO Work Phone: [facility] 08-21-2024 10:49-0400 Body weight 79.[address] Tomas Peña DO Work Phone: [facility] 08-21-2024 10:49-0400 Diastolic blood pressure 77 mm[Hg] Dr. Tomas Peña DO Work Phone: [facility] 08-21-2024 10:49-0400 Heart rate 79 /min Dr. Tomas Peña DO Work Phone: [facility] 08-21-2024 10:49-0400 Respiratory rate 18 /min Dr. Tomas Peña DO Work Phone: [facility] 08-21-2024 10:49-0400 Systolic blood pressure 132 mm[Hg] Dr. Tomas Peña DO Work Phone: [facility] 09-20-2022 09:59-0400 Body height 166.37 cm Tomas Gomez Fast DO Work Phone: [facility] Work Phone: 09-20-2022 09:59-0400 Body mass index (BMI) [Ratio] 28.35 kg/m2 Tomas Gomez Fast DO Work Phone: [facility]; [facility] Work Phone: 09-20-2022 09:59-0400 Body surface area Derived from formula 1.87 m2 Tomas A Fast DO Work Phone: [facility]; [facility] Work Phone: 09-20-2022 09:59-0400 Body temperature 97.9 [degF] Tomas A Fast DO Work Phone: [facility]; [facility] Work Phone: Comment on above: Method: Thermal Scan 09-20-2022 09:59-0400 Body weight 78.47 kg Tomas A Fast DO Work Phone: [facility]; [facility] Work Phone: 09-20-2022 09:59-0400 Diastolic blood pressure 78 mm[Hg] Tomas A Fast DO Work Phone: [facility]; [facility] Work Phone: Comment on above: Patient Position: Sitting; Cuff Location : Left Arm; Cuff Size: Standard 09-20-2022 09:59-0400 Heart rate 72 /min Tomas A Fast DO Work Phone: [facility]; [facility] Work Phone: Comment on above: Pattern: Regular 09-20-2022 09:59-0400 Respiratory rate 16 /min Tomas A Fast DO Work Phone: [facility]; [facility] Work Phone: Comment on above: Pattern: Unlabored 09-20-2022 09:59-0400 SaO2% (BldA) [Mass fraction] 98 % Tomas A Fast DO Work Phone: [facility]; [facility] Work Phone: Comment on above: Room air 09-20-2022 09:59-0400 Systolic blood pressure 136 mm[Hg] Tomas A Fast DO Work Phone: [facility]; [facility] Work Phone: Comment on above: Patient Position: Sitting; Cuff Location : Left Arm; Cuff Size: Standard 06-20-2022 08:30-0400 Body height 166.37 cm Tomas A Fast DO Work Phone: [facility]; [facility] Work Phone: 06-20-2022 08:30-0400 Body mass index (BMI) [Ratio] 29.33 kg/m2 Tomas A Fast DO Work Phone: [facility]; [facility] Work Phone: 06-20-2022 08:30-0400 Body surface area Derived from formula 1.9 m2 Tomas A Fast DO Work Phone: [facility]; [facility] Work Phone: 06-20-2022 08:30-0400 Body temperature 96.4 [degF] Tomas A Fast DO Work Phone: [facility]; [facility] Work Phone: Comment on above: Method: Oral 06-20-2022 08:30-0400 Body weight 81.19 kg Tomas A Fast DO Work Phone: [facility]; [facility] Work Phone: 06-20-2022 08:30-0400 Diastolic blood pressure 82 mm[Hg] Tomas A Fast DO Work Phone: [facility]; [facility] Work Phone: Comment on above: Patient Position: Sitting; Cuff Location : Left Arm; Cuff Size: Standard 06-20-2022 08:30-0400 Heart rate 51 /min Tomas A Fast DO Work Phone: [facility]; [facility] Work Phone: Comment on above: Pattern: Regular 06-20-2022 08:30-0400 Respiratory rate 18 /min Tomas A Fast DO Work Phone: [facility]; [facility] Work Phone: 06-20-2022 08:30-0400 SaO2% (BldA) [Mass fraction] 98 % Tomas A Fast DO Work Phone: [facility]; [facility] Work Phone: Comment on above: Room air 06-20-2022 08:30-0400 Systolic blood pressure 120 mm[Hg] Tomas Gomez Fast DO Work Phone: [facility]; [facility] Work Phone: Comment on above: Patient Position: Sitting; Cuff Location : Left Arm; Cuff Size: Standard 03-07-2022 10:58-0500 Body height 166.37 cm Melly Glez CMA [facility]; [facility] Work Phone: 03-07-2022 10:58-0500 Body mass index (BMI) [Ratio] 29.33 kg/m2 Melly Glez CMA [facility]; [facility] Work Phone: 03-07-2022 10:58-0500 Body surface area Derived from formula 1.9 m2 Melly Glez CMA [facility]; [facility] Work Phone: 03-07-2022 10:58-0500 Body temperature 97.2 [degF] Melly Glez CMA [facility]; [facility] Work Phone: Comment on above: Method: Thermal Scan 03-07-2022 10:58-0500 Body weight 81.19 kg Melly Glez CMA [facility]; [facility] Work Phone: 03-07-2022 10:58-0500 Diastolic blood pressure 70 mm[Hg] Melly Glez CMA [facility]; [facility] Work Phone: Comment on above: Patient Position: Sitting; Cuff Location : Left Arm; Cuff Size: Standard 03-07-2022 10:58-0500 Heart rate 80 /min Melly Glez CMA [facility]; [facility] Work Phone: Comment on above: Pattern: Regular 03-07-2022 10:58-0500 Respiratory rate 16 /min Melly Glez CMA [facility]; [facility] Work Phone: Comment on above: Pattern: Unlabored 03-07-2022 10:58-0500 Systolic blood pressure 120 mm[Hg] Melly Glez CMA [facility]; [facility] Work Phone: Comment on above: Patient Position: Sitting; Cuff Location : Left Arm; Cuff Size: Standard 11-17-2021 13:12-0400 Body height 166.37 cm Melly Glez CMA [facility]; [facility] Work Phone: 11-17-2021 13:12-0400 Body mass index (BMI) [Ratio] 29.01 kg/m2 Melly Glez CMA [facility]; [facility] Work Phone: 11-17-2021 13:12-0400 Body surface area Derived from formula 1.89 m2 Melly Glez CMA [facility]; [facility] Work Phone: 11-17-2021 13:12-0400 Body temperature 97.8 [degF] Melly Glez CMA [facility]; [facility] Work Phone: Comment on above: Method: Thermal Scan 11-17-2021 13:12-0400 Body weight 80.29 kg Melly Glez CMA [facility]; [facility] Work Phone: 11-17-2021 13:12-0400 Diastolic blood pressure 70 mm[Hg] Melly Glez CMA [facility]; [facility] Work Phone: Comment on above: Patient Position: Sitting; Cuff Location : Left Arm; Cuff Size: Standard 11-17-2021 13:12-0400 Heart rate 74 /min Melly Glez CMA [facility]; [facility] Work Phone: Comment on above: Pattern: Regular 11-17-2021 13:12-0400 Respiratory rate 16 /min Melly Glez CMA [facility]; [facility] Work Phone: Comment on above: Pattern: Unlabored 11-17-2021 13:12-0400 Systolic blood pressure 118 mm[Hg] Melly Glez CMA [facility]; [facility] Work Phone: Comment on above: Patient Position: Sitting; Cuff Location : Left Arm; Cuff Size: Standard 09-24-2021 11:12-0400 Body height 166.37 cm Melly Glez CMA [facility]; [facility] Work Phone: 09-24-2021 11:12-0400 Body mass index (BMI) [Ratio] 29.17 kg/m2 Melly Glez CMA [facility]; [facility] Work Phone: 09-24-2021 11:12040 Body surface area Derived from formula 1.89 m2 Melly Glez CMA [facility]; [facility] Work Phone: 09-24-2021 11:12-0400 Body temperature 97 [degF] Melly Glez CMA [facility]; [facility] Work Phone: Comment on above: Method: Thermal Scan 09-24-2021 11:12040 Body weight 80.74 kg Melly Glez CMA [facility]; [facility] Work Phone: 09-24-2021 11:12-0400 Diastolic blood pressure 68 mm[Hg] Melly Glez CMA [facility]; [facility] Work Phone: Comment on above: Patient Position: Sitting; Cuff Location : Left Arm; Cuff Size: Standard 09-24-2021 11:12-0400 Heart rate 64 /min Melly Glez CMA [facility]; [facility] Work Phone: Comment on above: Pattern: Regular 09-24-2021 11:12-0400 Respiratory rate 16 /min Melly Glez CMA [facility]; [facility] Work Phone: Comment on above: Pattern: Unlabored 09-24-2021 11:12-0400 Systolic blood pressure 114 mm[Hg] Melly Glez [facility]; [facility] Work Phone: Comment on above: Patient Position: Sitting; Cuff Location : Left Arm; Cuff Size: Standard 07-21-2021 10:04-0400 Body weight 82.1 kg Timmy Henderson MD Work Phone: [facility] 07-21-2021 10:04-0400 Diastolic blood pressure 80 mm[Hg] Timmy Henderson MD Work Phone: [facility] 07-21-2021 10:04-0400 Heart rate 78 /min Timmy Henderson MD Work Phone: [facility] 07-21-2021 10:04-0400 Respiratory rate 12 /min Timmy Henderson MD Work Phone: [facility] 07-21-2021 10:04-0400 Systolic blood pressure 138 mm[Hg] Timmy Henderson MD Work Phone: [facility] Encounters Encounter Date Encounter Type Care Provider Facility Start: 12-24-2024 ambulatory Tomas Fast Facility:[facility] Start: 12-02-2024 End: 12-02-2024 ambulatory Tomas Fast Facility:[facility] Start: 09-02-2024 End: 09-02-[address] Tomas Peña DO Work Phone: -[facility] Start: 09-02-2024 End: 09-02-[address] Ankit Ivory MD -[facility] Work Phone: Start: 08-21-2024 End: 08-21-2024 Patient encounter procedure Mariana BENJAMIN -[facility] Work Phone: Start: 08-21-2024 End: 08-21-[address] Tomas Peña DO Work Phone: -[facility] Start: 06-06-2024 End: 06-06-[address] Tomas Peña DO -[facility] Work Phone: Start: 06-06-2024 End: 06-06-2024 ambulatory Tomas Fast Facility:[facility] Start: 06-03-2024 End: 06-03-2024 ambulatory Ankit Ivory Facility:[facility] Start: 06-03-2024 End: 06-03-[address] Ankit Ivory MD [facility] Work Phone: Start: 04-17-2024 End: 04-17-2024 ambulatory Tomas Fast Facility:[facility] Start: 2024 End: 2024 ambulatory Tomas Fast Facility:[facility] Start: 03-05-2024 End: 03-05-2024 ambulatory Tomas Fast Facility:[facility] Start: 03-04-2024 End: 03-05-2024 ambulatory Tomas Fast Facility:[facility] Start: 03-01-2024 End: 03-01-2024 ambulatory Tomas Fast Facility:[facility] Start: 02-28-2024 End: 02-28-2024 ambulatory Tomas Fast Facility:[facility] Start: 02-26-2024 ambulatory Ankit Ivory Facility:[facility] Start: 02-26-2024 End: 02-26-2024 ambulatory Tomas Fast Facility:[facility] Start: 02-21-2024 End: 02-21-2024 ambulatory Tomas Fast Facility:[facility] Start: 02-11-2024 End: 02-11-2024 Emergency department patient visit Jose G Bela Facility:[facility] Start: 02-11-2024 ambulatory Jose G Bela Facility: [facility] Start: 02-11-2024 End: 02-11-2024 ambulatory Jose G Bela Facility:[facility] Start: 02-06-2024 End: 02-06-2024 ambulatory Tomas Fast Facility:[facility] Start: 05-02-2023 End: 05-02-[address] Tomas Peña Work Phone: [facility] Work Phone: Start: 05-02-2023 End: 05-02-[address] Tomas Peña Work Phone: [facility] Work Phone: Start: 04-06-2023 Non-patient / Non-visit Dr. Santiago Work Phone: [facility] Start: 04-05-2023 End: 04-05-[address] Tomas Peña Work Phone: [facility]Cardi[facility] Work Phone: Start: 04-05-2023 Non-patient / Non-visit Dr. Santiago Work Phone: [facility] Start: 01-26-2023 End: 01-26-[address] Tomas Peña Work Phone: [facility] Work Phone: Start: 01-26-2023 End: 01-26-[address] Tomas Peña Work Phone: [facility] Work Phone: Start: 01-24-2023 Non-patient / Non-visit Dr. Santiago Work Phone: [facility] Start: 01-23-2023 End: 01-23-[address] Tomas Peña Work Phone: [facility] Work Phone: Start: 01-23-2023 End: 01-23-[address] Tomas Peña Work Phone: [facility]-Pulmonary Services/Neurology Work Phone: Start: 01-13-2023 End: 01-13-2023 Subsequent hospital visit by physician Calvin Hayes [address] [place] [address] Comment on above: Atherosclerotic hear t disease of [place] coronary artery without angina pectoris Start: 01-13-2023 End: 01-13-2023 ambulatory TOMAS PEÑA [facility] Start: 09-20-2022 End: 09-20-2022 Office outpatient visit 15 minutes Tomas Peña DO Work Phone: [facility] Start: 09-20-2022 Review Tomas Fast DO Work Phone: [facility] Start: 06-22-2022 ambulatory Kong Holt MA [facility] Comment on above: Population Health Na vigation Outreach (ACO No PCP list) Start: 06-20-2022 End: 06-20-2022 Office outpatient visit 15 minutes Tomas Fast DO Work Phone: [facility] Start: 03-23-2022 End: 03-23-2022 ambulatory [facility] Work Phone: Start: 03-23-2022 End: 03-23-2022 Patient encounter procedure [facility]-Pulmonary Services/Neurology Start: 03-16-2022 Registered Referred [facility]Cardi[facility] Start: 03-07-2022 End: 03-10-2022 Office outpatient visit 25 minutes Tomas Fast DO Work Phone: [facility] Start: 12-03-2021 ambulatory Tomas A Fast DO [facility] Start: 11-26-2021 End: 11-26-[address] Tesfaye Henderson Work Phone: [facility] Work Phone: Start: 11-26-2021 End: 11-26-[address] Tesfaye Henderson Work Phone: [facility] Start: 11-17-2021 End: 03-07-2022 Patient encounter procedure Tomas Fast DO Work Phone: [facility] Start: 11-17-2021 Review Tomas Fast DO Work Phone: [facility] Start: 09-24-2021 End: 09-24-[address] Tesfaye Henderson Work Phone: [facility] Start: 09-24-2021 End: 10-05-2021 Office outpatient new 45 minutes Tomas Fast DO Work Phone: [facility] Start: 09-06-2021 End: 09-06-2021 ambulatory Brittany Hale PT Work Phone: [facility] Comment on above: Acute hip pain, left (Primary Dx) Start: 08-31-2021 End: 08-31-2021 ambulatory BRITTANY HALE Facility:[facility] Start: 08-31-2021 End: 08-31-2021 ambulatory Brittany Hale PT Work Phone: [facility] Comment on above: Acute hip pain, left (Primary Dx) Start: 08-18-2021 End: 08-18-2021 ambulatory BRITTANY HALE Facility:[facility] Start: 08-18-2021 End: 08-18-2021 ambulatory Brittany Hale PT Work Phone: [facility] Comment on above: Acute hip pain, left (Primary Dx) Start: 08-09-2021 End: 08-09-2021 ambulatory BRITTANY HALE Facility:[facility] Start: 08-09-2021 End: 08-09-2021 ambulatory Brittany Hale PT Work Phone: [facility] Comment on above: Acute hip pain, left (Primary Dx) Start: 08-02-2021 End: 08-02-2021 ambulatory BRITTANY HALE Facility:[facility] Start: 08-02-2021 End: 08-02-2021 ambulatory Brittany Hale PT Work Phone: [facility] Comment on above: Acute hip pain, left Start: 07-21-2021 End: 07-21-2021 ambulatory TIMMY HENDERSON Facility:[facility] Start: 07-21-2021 End: 07-21-2021 Subsequent hospital visit by physician [facility] Tahira Work Phone: Radiology Comment on above: Acute hip pain, left [M25.552] Start: 07-21-2021 End: 07-21-2021 Patient encounter procedure Timmy Henderson MD Work Phone: [facility] Comment on above: Acute hip pain, left (Primary Dx) Procedures Date Procedure Procedure Detail Performing Clinician Start: 06-06-2024 US scan of thyroid Dr. Tomas Peña DO Work Phone: Start: 05-02-2023 US scan of thyroid Dr. Tomas Peña Work Phone: Start: 04-05-2023 Radionuclide imaging of perfusion of myocardium under exercise stress Dr. Tomas Peña Work Phone: Start: 01-26-[address] Tomas Peña Work Phone: Start: 01-13-2023 CT CARDIAC SCORING WO IV CONTRAST TOMAS PEÑA Start: 01-13-2023 Ct heart no contrast quant eval coronry calcium Tomas Peña DO Work Phone: Start: 11-26-[address] Tesfaye Henderson Work Phone: Start: 11-26-2021 End: 11-26-[address] Lung Screening Procedure Note: See Note; NOTES: [facility] Imaging Services [address] [place] [address] Lung Screening MR#: [id number] Acct: [id number] Name: ORIANA BONILLA Rep #: [id number] : 1940 M 81 From: Uriel Copeland DO PCP: Dr. Tomas Peña DO Status: REG CLI Study: Low Dose CT Lung Screening Date of Exam: 11/26 Exam# [id number] Ordering Dr: Tomas Peña DO STUDY: LOW DOSE CT LUNG [...] 21:14 EDT Reading Location ID and State: [address] [place] [address] Tel [phone], Service support , CC: Dr. Tomas Peña DO Aircraft Shipping Checker: Signed Tomas Peña DO Work Phone: Start: 09-24-2021 End: 09-24-2021 Chest PA and Lateral Procedure Note: See Note; NOTES: [facility] Radiology [address] [place] [address] Chest PA and Lateral MR#: [id number] Acct: [id number] Name: ORIANA BONILLA Rep #: [id number] : 1940 M 81 From: Radha Fernandez MD PCP: Dr. Tesfaye Henderson MD Status: DEP AMB Study: Chest PA and Lateral Date of Exam: 09/24/21 Exam# [id number] Ordering Dr: Tomas Pñea DO STUDY: X-RAY CHEST REASON FOR EXAM: [...] , CC: Dr. Tesfaye Henderson MD; Dr. Tomas Peña DO Aircraft Shipping Checker: Signed Tomas Peña DO Work Phone: Start: 09-24-2021 Plain chest X-ray Dr. Tesfaye Henderson Work Phone: Start: 07-21-2021 Radex hip unilateral with pelvis 2-3 views Timmy Henderson MD Work Phone: Start: 04-04-2020 Adult depression screening assessment Timmy Henderson MD Work Phone: cataract surgery bilateral 2019- Dr Brett Peña DO Work Phone: cataract surgery bilateral 2019- Dr Brett Glez [facility] cataract surgery bilateral 2019- Dr Brett Glez CMA cataract surgery bilateral 2019- Dr Brett Justice MA cataract surgery bilateral 2019- Dr Brett Glez [facility] History of cataract extraction Hx of cataract removal with insertion of prosthetic lens Dr. Archer Fast DO Work Phone: right carpal tunnel release Tomas Gomez Fast DO Work Phone: right carpal tunnel release Melly Mandejahk HEALTH CARE ANALYST right carpal tunnel release Melly Mandejahk HEALTH CARE ANALYST right carpal tunnel release Breanna Justice MA right carpal tunnel release Melly Glez HEALTH CARE ANALYST Plan of Treatment Date Care Activity Detail Author Start: 03-08-2028 Urine microalbumin profile [facility] Start: 04-12-2024 DIABETES SCREEN DIABETES SCREEN [facility] Start: 04-12-2024 Diabetes Screening Diabetes Screening [facility] Start: 10-15-2023 Influenza vaccination Influenza Vaccine (#1) [facility] Start: 02-13-2023 Advance Directive Discussion Advance Directive Discussion [facility] Start: 10-14-2022 Influenza vaccination [facility] Start: 09-20-2022 Procedure Education Eprescribed prescriptions (G8553) [facility] Work Phone: Start: 09-20-2022 Urnls dip stick/tablet reagent auto microscopy URINALYSIS, W/ MICRO (58399) [facility] Work Phone: Start: 09-20-2022 Blood count complete auto&auto difrntl wbc CBC W/AUTO DIFF WBC (72202) [facility] Work Phone: Start: 09-20-2022 Comprehensive metabolic panel METABOLIC PANEL, COMPREHENSIVE (76780) [facility] Work Phone: Start: 09-20-2022 Assay of prostate specific antigen total PSA (PROSTATE SPECIFIC ANTIGEN) (V76.44) [facility] Work Phone: Start: 06-20-2022 Procedure Education Eprescribed prescriptions (G8553) [facility]; [facility] Work Phone: Start: 06-20-2022 Assay of thyroid stimulating hormone tsh TSH (39814) [facility]; [facility] Work Phone: Start: 06-20-2022 C-reactive protein high sensitivity C-REACT PROT HIGH SENS(hsCRP) (00086) [facility]; [facility] Work Phone: Start: 06-20-2022 Lipid panel LIPID PANEL (04991) [facility] Work Phone: Start: 06-20-2022 Blood count complete auto&auto difrntl wbc CBC with auto diff (33379) [facility] Work Phone: Start: 06-20-2022 Urine albumin quantitative MICROALBUMIN: CREATININE RATIO (47477) AND (60279) [facility] Work Phone: Start: 06-20-2022 Comprehensive metabolic panel METABOLIC PANEL, COMPREHENSIVE (77831) [facility] Work Phone: Start: 06-20-2022 Hemoglobin glycosylated a1c HGB A1C (41261) [facility] Work Phone: Start: 03-10-2022 Hemoglobin glycosylated a1c HGB A1C (00864) [facility]; [facility] Work Phone: Start: 03-10-2022 Lipid panel LIPID PANEL (65917) [facility]; [facility] Work Phone: Start: 03-10-2022 Urnls dip stick/tablet reagent auto microscopy URINALYSIS, W/ MICRO (81130) [facility]; [facility] Work Phone: Start: 03-10-2022 Blood count complete auto&auto difrntl wbc CBC W/AUTO DIFF WBC (33040) [facility] Work Phone: Start: 03-10-2022 Comprehensive metabolic panel METABOLIC PANEL, COMPREHENSIVE (22290) [facility] Work Phone: Start: 03-07-2022 Procedure Education Eprescribed prescriptions (G8553) [facility] Work Phone: Start: 02-13-2022 ADVANCE DIRECTIVE DISCUSSION ADVANCE DIRECTIVE DISCUSSION [facility] Start: 02-13-2022 DEPRESSION ASSESSMENT DEPRESSION ASSESSMENT [facility] Start: 11-17-2021 Assay of free thyroxine T4, FREE (THYROXINE) (20344) [facility] Work Phone: Start: 11-17-2021 Assay of triiodothyronine t3 free FREE TRIIDOTHYRONINE (T3) (20208) [facility] Work Phone: Start: 11-17-2021 Assay of thyroid stimulating hormone tsh TSH (49355) [facility] Work Phone: Start: 11-17-2021 Sedimentation rate rbc non-automated SED RATE ERYTHROCYTE (55064) [facility] Work Phone: Start: 11-17-2021 C-reactive protein C-REACTIVE PROTEIN (42295) [facility] Work Phone: Start: 11-17-2021 Procedure Education Eprescribed prescriptions (G8553) [facility] Work Phone: Start: 10-14-2021 Influenza vaccination [facility] Start: 09-24-2021 Procedure Education Eprescribed prescriptions (G8553) [facility] Work Phone: Start: 04-04-2021 Adult depression screening assessment DEPRESSION SCREENING [facility] Start: 02-13-2021 ADVANCE DIRECTIVE DISCUSSION ADVANCE DIRECTIVE DISCUSSION [facility] Start: 2016 RSV Vaccine (1 - 1-dose 75+ series) RSV Vaccine (1 - 1-dose 75+ series) [facility] Start: 06-24-2011 Pneumococcal Vaccine: 65+ (2 of 2 - PCV) Pneumococcal Vaccine: 65+ (2 of 2 - PCV) [facility] Start: 06-24-2011 Pneumococcal Vaccine: 65+ Years (2 - PCV) Pneumococcal Vaccine: 65+ Years (2 - PCV) [facility] Start: 06-24-2011 PNEUMOCOCCAL: 65+ (2 - PCV) PNEUMOCOCCAL: 65+ (2 - PCV) [facility] Start: 1991 SHINGRIX VACCINE (1 of 2) SHINGRIX VACCINE (1 of 2) [facility] Start: 1991 Zoster Vaccines (1 of 2) Zoster Vaccines (1 of 2) [facility] Start: 1963 DTaP/Tdap/Td Vaccines (1 - Tdap) DTaP/Tdap/Td Vaccines (1 - Tdap) [facility] Start: 1959 Anxiety Screening Anxiety Screening [facility] Start: 1959 Depression Screening Depression Screening [facility] Start: 1941 COVID-19 Vaccine (#1) COVID-19 Vaccine (#1) [facility] Start: 1941 Lipid panel Lipid Panel [facility] Start: 1940 Medicare Annual Wellness Visit Medicare Annual Wellness Visit (AWV) [facility] End: 01-13-2023 CT for calcium scoring WO contrast and CTA W contrast IV Heart and coronary arteries [facility] Service Area Work Phone: Comment on above: Once for 1 Occurrences starting 01/14/20 until 01/13/2023 PT PLAN OF CARE CERTIFICATION PT PLAN OF CARE CERTIFICATION Procedures Routine Acute hip pain, left Ordered: 08/02/2021 [facility] Work Phone: Comment on above: Ordered: 08/02/2021 [facility] Work Phone: [facility] Work Phone[facility] Work Phone: [facility] Work Phone[facility] Work Phone: [facility] Work Phone: [facility] Work Phone: Immunizations Immunization Date Immunization Notes Care Provider Cristina landeros 03-08-2018 influenza virus vaccine, unspecified formulation Xr [employer] Work Phone: [facility] 06-23-2010 pneumococcal conjuga te vaccine, 13 valent Tomas Fast DO Work Phone: [facility] Work Phone: Comment on above: pneumovax 06-23-2010 pneumococcal polysaccharide vaccine, 23 valent Timmy Henderson MD Work Phone: [facility] Work Phone: Payers Date Payer Category Payer Self-pay [id number] 2017 Private Health Insurance ROSI MARAVILLA MEDICARE SUPPLEMENT [id number] 2017-Present [phone] [address] [place] [address] Indemnity [id number] 2017 Private Health Insurance [id number] 2017 Private Health Insurance [id number] 2006 Medicare MEDICARE MEDICAR E A AND B [id number] 2006-Present [phone] [address] [address] [place] [address] Medicare [id number] 2006 Medicare [id number] [id number]. [id number] 2006 Medicare [id number] 1940 Unknown [id number] 2.16.840.1.091952.3.579. 2.716 1940 Unknown [id number] 2.16.840.1.267967.3.579. 2.1243 Unknown Unknown [id number] Unknown [facility] PACKAGE PLAN [id number] Unknown [id number] 2.16.840.1.334000.3.579. 2.462 Unknown [id number] 2.16.840.1.130297.3.579. 2.462 Unknown [id number] 2.16.840.1.515636.3.579. 2.462 Unknown [id number] 2.16.840.1.347229.3.579. 2.462 Unknown [id number] 2.16.840.1.483131.3.579. 2.462 Unknown [id number] 2.16.840.1.104651.3.579. 2.462 Unknown [id number] 2.16.840.1.708203.3.579. 2.462 Unknown [id number] 2.16.840.1.764254.3.579. 2.462 Unknown [id number] 2.16.840.1.456105.3.579. 2.462 Unknown [id number] 2.16.840.1.719159.3.579. 2.462 Unknown [id number] 2.16.840.1.394242.3.579. 2.462 Unknown [id number] 2.16.840.1.268616.3.579. 2.462 Unknown [id number] 2.16.840.1.996507.3.579. 2.462 Unknown [id number] 2.16.840.1.309572.3.579. 2.462 Unknown [id number] 2.16.840.1.531567.3.579. 2.462 Unknown [id number] 2.16.840.1.004461.3.579. 2.462 Unknown [id number] 2.16.840.1.031015.3.579. 2.462 Unknown [id number] 2.16.840.1.388695.3.579. 2.462 Unknown [id number] 2.16.840.1.116954.3.579. 2.462 Unknown [id number] 2.16.840.1.955721.3.579. 2.462 Unknown [id number] 2.16.840.1.934197.3.579. 2.462 Unknown [id number] 2.16840.1.898721.3.579. 2.462 Unknown [id number] 2.840.1.181091.3.579. 2.462 Unknown [id number] 2.840.1.050606.3.579. 2.462 Social History Date Type Detail Facility [facility] Start: 03-16-1953 History of tobacco use Cigarette Smo ker [facility] Start: 03-16-1953 History of tobacco use Pipe Smoker [facility] Start: 07-21-2021 Alcohol intake Current drinke r of alcohol (finding) [facility] Start: 04-05-2020 History SDOH Alcohol Frequency 2 [facility] Start: 04-05-2020 History SDOH Alcohol Std Drinks 1 [facility] Start: 03-08-2018 History SDOH Alcohol Comment rarely [facility] Start: 04-05-2020 History SDOH Social Connections Phone 3 [facility] Start: 04-04-2020 Education 14 [facility] Start: 1940 Sex Assigned At Male C [facility] Start: 07-11-2021 End: 01-13-2023 Exposure to SARS-CoV-2 (event) Not sure [facility] Alcohol Use: Alcohol Use: [facility] Work Phone: Start: 04-01-2019 End: 07-21-2021 Caffeine Use Caffeine Use [facility] Work Phone: Comment on above: coffee [employer]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 RECENTLY QUIT 11/29/21 Start: 04-01-2019 Tobacco use and exposure Smokeless tobacco non-user [facility] Tobacco smoking stat [facility] Tobacco smoking consumption unknown [facility] Work Phone: Start: 1940 Sex Assigned At Not on file [facility] Work Phone: Start: 04-04-2020 End: 07-21-2021 Gender identity Not on file [facility] Do you belong to any clubs or organizations such as zoroastrian groups, unions, fraternal or athletic groups, or school groups? No [facility] Are you now , , , , never or living with a partner? [facility] How often to you hav e a drink containing alcohol? Monthly or less [facility] How many standard drinks containing alcohol do you have on a typical day? 1 or 2 [facility] How often do you hav e 6 or more drinks on 1 occasion? Never [facility] Adult Depression Screening Assessment 0 [facility] The food that (I/we) bought just didn't last, and (I/we) didn't have money to get more. Never true [facility] Start: 04-04-2020 Gender identity Identifies as male gender (finding) [facility] Start: 03-05-2024 [facility] Medical Equipment Procedure Code Equipment Code Equipment Origin al Text Equipment Identifier Dates Implantable card iac monitor ()[id number] FDA Start: 02-26-2024 ([id number]) Dual-chamber implantable pacemaker, rate-responsive ()[id number] [id number] FDA Start: 03-04-2024 ([id number]) Endocardial paci ng lead ()[id number] [id number] FDA Start: 03-04-2024 ([id number]) Endocardial paci ng lead ()[id number] [id number] FDA Start: 03-04-2024 Clinical Notes 07-21-2021 to 08-21-2024 Note Date & Type Note Facility 08-21-2024 Evaluation note Diagnosis Onset Date Resolution Presence of cardiac pacemaker acute August 21, 2024 1 0:42am Sick sinus syndrome acute August 21, 2024 10:42am [facility] [employer] [facility] Work Phone: [phone] 550-194712-12-2023 Procedure [facility] 06-22-2022 NoteHNO ID: [id number] Author: Kong Holt MA Service: ? Author Type: Process Area Supervisor Type: Progress Notes Filed: 06/22/2022 3:37 PM [...] done DEPRESSION ASSESSMENT Never done Navigation Signature: Kong Holt MA June 22, 2022 3:36 [facility]05-10-2023 History of Present illness Narrative* Kong Holt MA - 06/22/2022 3:36 PM EDT POPULATION HEALTH NAVIGATION OUTREACH Action/FYI pcp field [...] done DEPRESSION ASSESSMENT Never done Navigation Signature: Kong Holt MA June 22, 2022 3:36 PM documented [facility] NotePatient Outreach (NETNAV) ORIANA BONILLA ([id number]) 1940 M Date Time Provider Department 06/22/22 KONG HOLT During your visit today, we recorded the following information about you: Kong Holt MA 06/22/2022 3:37 PM Signed POPULATION [...] done DEPRESSION ASSESSMENT Never done Navigation Signature: Kong Holt MA June 22, 2022 3:36 PM [...] C,E/mins (EYE HEALTH ORAL) Take by mouth. [facility] - naproxen (NAPROSYN) 500 mg tablet [...] left [M25.552] 08/02/2021 09/07/2021 Encounter Status:Closed by KONG HOLT on 06/22/22[facility]07-26-2022 NoteHNO ID: [id number] Author: Brittany Hale, TAYLER Service: ? Author Type: Physical Therapist Type: [...] to 09/07/2021 and treatment included: Therapeutic exercise, Self-chcf management and Patient/Family/Caregiver Education. Goals for Episode of Care: created on 08/02/21 through 09/13/21 updated 09/06/21 [place] in home exercise program./ achieved Patient will [...] Treatment Time Minutes (timed/untimed): 35 Brittany Hale [facility]07-26-2022 History of Present illness Narrative* Brittany Hale, PT - 09/07/2021 6:54 AM EDT Episode Visit Count: 5 Therapist That Will [...] Physical Therapy services due to goal achievement andmaximal benefit.. Patient was seen for 5 visits from Start of Care Date: 08/02/21 to 09/07/2021 and treatment included: Therapeutic exercise, Self-chcf management and Patient/Family/Caregiver Education. Goals for Episode of Care: created on 08/02/21 through 09/13/21 updated 09/06/21 [place] in home exercise program./ achieved Patient will [...] 35 Brittany Hale PT [facility]2022 NoteHNO ID: [id number] Author: Brittany Hale PT Service: ? Author [...] Treatment Time Minutes (timed/untimed): 35 Brittany Hale [facility]07-19-2022 History of Present illness Narrative* Brittany Hale PT - 08/31/2021 4:37 PM EDT Episode Visit Count: 4 Therapist That Will [...] benefit from ongoing skilled physical therapy to progresstoward set goals. PLAN FOR NEXT VISIT: POC [...] 35 Brittany Hale PT documented in this encounterBerger [facility]07-06-2022 NoteHNO ID: [id number] Author: Brittany Hale PT Service: ? Author [...] THERAPY PHYSICAL THERAPY TREATMENT NOTE ASSESSMENT: Oriana Trip Bonilla tolerated the session with no issues. [...] Total Treatment Time Minutes (timed/untimed): 38 Brittany Bullon, [facility]07-06-2022 History of Present illness Narrative* Brittany Hale, PT - 08/18/2021 3:24 PM EDT Episode Visit Count: 3 Therapist That Will [...] 38 Brittany Hale PT documented in [facility] encounterBer[facility]06-27-2022 NoteHNO ID: [id number] Author: Brittany Hale PT Service: ? Author [...] 25 Total Treatment Time Minutes (timed/untimed): 25 [facility] of Present illness Narrative* Brittany Hale, PT - 08/09/2021 12:10 PM EDT Episode Visit Count: 2 Therapist That Will Oversee The Plan Of Care: Brittany Hale PT Start of Care Date: 08/02/21 Onset Date: 07/02/21 (has been off and on for 6 years) Plan of Care Certification Date: 08/02/21 Next Certification Due Date: 09/13/21 Patient Identified by Name and Date of : Yes REHABILITATION AND SPORTS THERAPY PHYSICAL THERAPY TREATMENT NOTE ASSESSMENT: Oriana Trip Bonilla tolerated the session with no issues. [...] 25 Brittany Hale PT documented in this encounterBerger [facility]06-20-2022 NoteHNO ID: [id number] Author: Brittany Hale PT Service: ? Author [...] of Care: created on 08/02/21 through 09/13/21 [place] in home exercise program. Patient will decrease [...] Planned: 4 Planned Treatment Interventions: Therapeutic exercise (92013);Neuromuscular re-education (61110);Manual therapy (60002);Therapeutic activities (62243);Self-chcf management (66315);Gait Training (00720);Patient/Family/Caregiver Education PLAN FOR NEXT VISIT: Will assess [...] falls interview Pain: Pain Pain Level: 5 (09/22) Pain Location: Hip - Left Description: Sharp;Aching [...] Functional Strength Functional Streng (more content not included)...[facility] 08-02-2021 History of Present illness Narrative* Brittany Hale, PT - 08/02/2021 5:05 PM EDT Episode Visit Count: 1 Therapist That Will [...] with impairments in flexibility, independence in exercise, overallfunction, range of motion and strength . . Prognosis for therapy is Good due to: current objective clinical presentation;good overall health status He will benefit from skilled therapy services to meet the goals established for this plan of care as noted below. Goals for Episode of Care: created on 08/02/21 through 09/13/21 [place] in home exercise program. Patient will decrease [...] Planned: 4 Planned Treatment Interventions: Therapeutic exercise (35389);Neuromuscular re- education (33486);Manual therapy (75634);Therapeutic activities (66283);Self- chcf management (91843);Gait Training (35964);Patient/Family/Caregiver Education PLAN FOR NEXT VISIT: Will assess [...] falls interview Pain: Pain Pain Level: 5 (09/22) Pain Location: Hip - Left Description: Sharp;Aching [...] steps then ok Education: Education Learning Preferences: Explanation;Demonstration;Performance;Printed Materials Barriers: None Learning/educational needs: Home exercise program;Plan of Care Education Provided: Yes, see treatment interventions for education provided Education Provided To: Patient Education Mode/Type: Demonstration;Explanation/Discussion;Literature/Printed Materials;Performance Response to Education/Teach Back: States/Identifies;Return Demonstration TREATMENT: PT Treatment Interventions: Therapeutic Exercise;Self-Jail Management Evaluation Therapeutic Exercise: 1: standing hip [...] and visual cuing. Patient education as noted. Self-Jail Management: 1: discussed neutral hip position for [...] 45 Brittany Hale PT documented in [facility] encounterBer[facility]06-[facility]22 History of Past illness Narrative* Problem Noted Date Resolved Date Acute hip pain, left 08/02/2021 09/07/2021 documented as of this encounter (statuses as of 09/07/2021) [facility]06-20-2022 History of Past illness Narrative* Problem Noted Date Resolved Date Acute hip pain, left 08/02/2021 09/07/2021 documented as of this encounter (statuses as of 06/23/2022) [facility]06-08-2022 NoteHNO ID: [id number] Author: RT Ang(R) Service: Nuclear Medicine Author Type: Technologist Type: [...] BY: RT Ang(R) July 21, 2021 10:48 [facility]06-08-2022 NoteHNO ID: [id number] Author: Timmy Henderson MD Service: ? Author [...] C,E/mins (EYE HEALTH ORAL) Take by mouth. [facility] - atorvastatin (LIPITOR) 40 mg tablet Take [...] LEFT - CONSULT TO PHYSICAL THERAPY Timmy Henderson, [facility]06-08-2022 History of Present illness Narrative* Jordana Oliveira RT(R) - 07/21/2021 10:50 AM EDT Radiology Service Progress Note PATIENT NAME: Oriana Bonilla DATE OF SERVICE: July 21, 2021 TIME: 10:51 AM PATIENT IDENTITY VERIFICATION COMPLETED USING TWO (2) IDENTIFIERS: Name and Date of confirmedby patient verbally. FALL SCREENING: Has the patient [...] BY: RT Ang(R) July 21, 2021 10:48 AM documented in this encounterBerger Hospital06-08-2022 History of Present illness Narrative* Timmy [...] TQ 11/08/2007 45cm PAST SURGICAL HISTORY OF 2002 nodule on voice box biopsy Family History [...] C,E/mins (EYE HEALTH ORAL) Take by mouth. [facility] [place] atorvastatin (LIPITOR) 40 mg tablet Take 1 [...] THERAPY [facility] Henderson [facility] Diagnosis Acute hip pain, left- Primary documented in this encounter [facility] note* Diagnosis Acute hip pain, left documented in this encounter [facility] note* Diagnosis Acute hip pain, left- Primary [facility] Diagnosis Acute hip pain, left- Primary documented in this encounter [facility] note* Diagnosis Acute hip pain, left- Primary documented in this encounter [facility] note* Diagnosis Acute hip pain, left- Primary documented in this encounter [facility] noteNo assessment information availableWPremier [facility] Work Phone: Evaluation note* Diagnosis Atherosclerotic heart disease of [place] coronary artery without angina pectoris documented in this encounter [facility] Work Phone: Evaluation note* Diagnosis Atherosclerotic heart disease of [place] coronary artery without angina pectoris documented in this encounter [facility] Work Phone: Evaluation note* Diagnosis Acute hip pain, left documented in this encounter [facility] note* Diagnosis Onset Date Resolution Status Admit Date Bradycardia acute August 21 10:42am Presence of cardiac pacemaker acute August 21, 2024 10:42am Sick sinus syndrome acute August 21, 2024 10:42am [facility] Work Phone: Instructions* Name Dates Details Patient Instructions Indication:Elevated fasting blood sugar Start:24-Sep-2021 Instruction Type:Provider Instructions for Treatment How to Access Health Informa tion Online using Patient Portal and [employer] Apps Indication:Elevated fasting blood sugar Start:24-Sep-2021 Instruction Type:Patient Education [facility]; [facility] Work Phone: Instructions* Name Dates Details Patient Instructions Indication:BMI 29.0-29.9,adult Start:17-Nov-2021 Instruction Type:Provider Instructions for Treatment How to Access Health Informa tion Online using Patient Portal and [employer] Apps Indication:BMI 29.0-29.9,adult Start:17-Nov-2021 Instruction Type:Patient Education Patient Instructions Indication:Elevated fasting blood sugar Start:24-Sep-2021 Instruction Type:Provider Instructions for Treatment How to Access Health Informa tion Online using Patient Portal and [employer] Apps Indication:Elevated fasting blood sugar Start:24-Sep-2021 Instruction Type:Patient Education [facility]; [facility] Work Phone: Instructions* Name Dates Details Patient Instructions Indication:BMI 29.0-29.9,adult Start:17-Nov-2021 Instruction Type:Provider Instructions for Treatment How to Access Health Informa tion Online using Patient Portal and [employer] Apps Indication:BMI 29.0-29.9,adult Start:17-Nov-2021 Instruction Type:Patient Education Patient Instructions Indication:Elevated fasting blood sugar Start:24-Sep-2021 Instruction Type:Provider Instructions for Treatment How to Access Health Informa tion Online using Patient Portal and [employer] Apps Indication:Elevated fasting blood sugar Start:24-Sep-2021 Instruction Type:Patient Education [facility]; [facility] Work Phone: instructions* Name Dates Details Patient Instructions Indication:BMI 29.0-29.9,adult Start:17-Nov-2021 Instruction Type:Provider Instructions for Treatment How to Access Health Informa tion Online using Patient Portal and [employer] Apps Indication:BMI 29.0-29.9,adult Start:17-Nov-2021 Instruction Type:Patient Education Patient Instructions Indication:Elevated fasting blood sugar Start:24-Sep-2021 Instruction Type:Provider Instructions for Treatment How to Access Health Informa tion Online using Patient Portal and [employer] Apps Indication:Elevated fasting blood sugar Start:24-Sep-2021 Instruction Type:Patient Education [facility]; [facility] Work Phone: instructions* Name Dates Details Patient Instructions Indication:BMI 29.0-29.9,adult Start:17-Nov-2021 Instruction Type:Provider Instructions for Treatment How to Access Health Informa tion Online using Patient Portal and [employer] Apps Indication:BMI 29.0-29.9,adult Start:17-Nov-2021 Instruction Type:Patient Education Patient Instructions Indication:Elevated fasting blood sugar Start:24-Sep-2021 Instruction Type:Provider Instructions for Treatment How to Access Health Informa tion Online using Patient Portal and [employer] Apps Indication:Elevated fasting blood sugar Start:24-Sep-2021 Instruction Type:Patient Education [facility]; [facility] Work Phone: instructions* Name Dates Details Patient Instructions Indication:BMI 29.0-29.9,adult Start:07-Mar-2022 Instruction Type:Provider Instructions for Treatment How to Access Health Informa tion Online using Patient Portal and [employer] Apps Indication:BMI 29.0-29.9,adult Start:07-Mar-2022 Instruction Type:Patient Education Patient Instructions Indication:BMI 29.0-29.9,adult Start:17-Nov-2021 Instruction Type:Provider Instructions for Treatment How to Access Health Informa tion Online using Patient Portal and [employer] Apps Indication:BMI 29.0-29.9,adult Start:17-Nov-2021 Instruction Type:Patient Education Patient Instructions Indication:Elevated fasting blood sugar Start:24-Sep-2021 Instruction Type:Provider Instructions for Treatment How to Access Health Informa tion Online using Patient Portal and [employer] Apps Indication:Elevated fasting blood sugar Start:24-Sep-2021 Instruction Type:Patient Education [facility]; [facility] Work Phone: instructions* Name Dates Details Patient Instructions Indication:BMI 29.0-29.9,adult Start:07-Mar-2022 Instruction Type:Provider Instructions for Treatment How to Access Health Informa tion Online using Patient Portal and [employer] Apps Indication:BMI 29.0-29.9,adult Start:07-Mar-2022 Instruction Type:Patient Education Patient Instructions Indication:BMI 29.0-29.9,adult Start:17-Nov-2021 Instruction Type:Provider Instructions for Treatment How to Access Health Informa tion Online using Patient Portal and [employer] Apps Indication:BMI 29.0-29.9,adult Start:17-Nov-2021 Instruction Type:Patient Education Patient Instructions Indication:Elevated fasting blood sugar Start:24-Sep-2021 Instruction Type:Provider Instructions for Treatment How to Access Health Informa tion Online using Patient Portal and [employer] Apps Indication:Elevated fasting blood sugar Start:24-Sep-2021 Instruction Type:Patient Education [facility]; [facility] Work Phone: instructions* Name Dates Details Patient Instructions Indication:Smoker Start:20-Jun-2022 Instruction Type:Provider Instructions for Treatment How to Access Health Informa tion Online using Patient Portal and [employer] Apps Indication:Smoker Start:20-Jun-2022 Instruction Type:Patient Education Patient Instructions Indication:BMI 29.0-29.9,adult Start:07-Mar-2022 Instruction Type:Provider Instructions for Treatment How to Access Health Informa tion Online using Patient Portal and [employer] Apps Indication:BMI 29.0-29.9,adult Start:07-Mar-2022 Instruction Type:Patient Education Patient Instructions Indication:BMI 29.0-29.9,adult Start:17-Nov-2021 Instruction Type:Provider Instructions for Treatment How to Access Health Informa tion Online using Patient Portal and [employer] Apps Indication:BMI 29.0-29.9,adult Start:17-Nov-2021 Instruction Type:Patient Education Patient Instructions Indication:Elevated fasting blood sugar Start:24-Sep-2021 Instruction Type:Provider Instructions for Treatment How to Access Health Informa tion Online using Patient Portal and [employer] Apps Indication:Elevated fasting blood sugar Start:24-Sep-2021 Instruction Type:Patient Education [facility]; [facility] Work Phone: Instructions* Name Dates Details Patient Instructions Indication:Impaired fasting blood sugar Start:20-Sep-2022 Instruction Type:Provider Instructions for Treatment How to Access Health Informa tion Online using Patient Portal and [employer] Apps Indication:Impaired fasting blood sugar Start:20-Sep-2022 Instruction Type:Patient Education Patient Instructions Indication:Smoker Start:20-Jun-2022 Instruction Type:Provider Instructions for Treatment How to Access Health Informa tion Online using Patient Portal and [employer] Apps Indication:Smoker Start:20-Jun-2022 Instruction Type:Patient Education Patient Instructions Indication:BMI 29.0-29.9,adult Start:07-Mar-2022 Instruction Type:Provider Instructions for Treatment How to Access Health Informa tion Online using Patient Portal and [employer] Apps Indication:BMI 29.0-29.9,adult Start:07-Mar-2022 Instruction Type:Patient Education Patient Instructions Indication:BMI 29.0-29.9,adult Start:17-Nov-2021 Instruction Type:Provider Instructions for Treatment How to Access Health Informa tion Online using Patient Portal and [employer] Apps Indication:BMI 29.0-29.9,adult Start:17-Nov-2021 Instruction Type:Patient Education Patient Instructions Indication:Elevated fasting blood sugar Start:24-Sep-2021 Instruction Type:Provider Instructions for Treatment How to Access Health Informa tion Online using Patient Portal and [employer] Apps Indication:Elevated fasting blood sugar Start:24-Sep-2021 Instruction Type:Patient Education [facility]; [facility] Work Phone: Instructions* Name Dates Details Patient Instructions Indication:Impaired fasting blood sugar Start:20-Sep-2022 Instruction Type:Provider Instructions for Treatment How to Access Health Informa tion Online using Patient Portal and [employer] Apps Indication:Impaired fasting blood sugar Start:20-Sep-2022 Instruction Type:Patient Education Patient Instructions Indication:Smoker Start:20-Jun-2022 Instruction Type:Provider Instructions for Treatment How to Access Health Informa tion Online using Patient Portal and [employer] Apps Indication:Smoker Start:20-Jun-2022 Instruction Type:Patient Education Patient Instructions Indication:BMI 29.0-29.9,adult Start:07-Mar-2022 Instruction Type:Provider Instructions for Treatment How to Access Health Informa tion Online using Patient Portal and [employer] Apps Indication:BMI 29.0-29.9,adult Start:07-Mar-2022 Instruction Type:Patient Education Patient Instructions Indication:BMI 29.0-29.9,adult Start:17-Nov-2021 Instruction Type:Provider Instructions for Treatment How to Access Health Informa tion Online using Patient Portal and [employer] Apps Indication:BMI 29.0-29.9,adult Start:17-Nov-2021 Instruction Type:Patient Education Patient Instructions Indication:Elevated fasting blood sugar Start:24-Sep-2021 Instruction Type:Provider Instructions for Treatment How to Access Health Informa tion Online using Patient Portal and [employer] Apps Indication:Elevated fasting blood sugar Start:24-Sep-2021 Instruction Type:Patient Education [facility]; [facility] Work Phone: instructions* Name Dates Details Patient Instructions Indication:Impaired fasting blood sugar Start:20-Sep-2022 Instruction Type:Provider Instructions for Treatment How to Access Health Informa tion Online using Patient Portal and [employer] Apps Indication:Impaired fasting blood sugar Start:20-Sep-2022 Instruction Type:Patient Education Patient Instructions Indication:Smoker Start:20-Jun-2022 Instruction Type:Provider Instructions for Treatment How to Access Health Informa tion Online using Patient Portal and [employer] Apps Indication:Smoker Start:20-Jun-2022 Instruction Type:Patient Education Patient Instructions Indication:BMI 29.0-29.9,adult Start:07-Mar-2022 Instruction Type:Provider Instructions for Treatment How to Access Health Informa tion Online using Patient Portal and [employer] Apps Indication:BMI 29.0-29.9,adult Start:07-Mar-2022 Instruction Type:Patient Education Patient Instructions Indication:BMI 29.0-29.9,adult Start:17-Nov-2021 Instruction Type:Provider Instructions for Treatment How to Access Health Informa tion Online using Patient Portal and [employer] Apps Indication:BMI 29.0-29.9,adult Start:17-Nov-2021 Instruction Type:Patient Education Patient Instructions Indication:Elevated fasting blood sugar Start:24-Sep-2021 Instruction Type:Provider Instructions for Treatment How to Access Health Informa tion Online using Patient Portal and [employer] Apps Indication:Elevated fasting blood sugar Start:24-Sep-2021 Instruction Type:Patient Education [facility]; [facility] Work Phone: reason for referral (narrative)* Diagnostic Procedure Only (Routine) - Closed Specialty Diagnoses / Procedures Referred By Contac t Referred To Contact XR IMAGING Diagnoses Acute hip pain, left Procedures XR HIP GENERAL 3V PELV/AP/LAT LEFT RADEX HIP UNILATERAL WITH PELVIS 2-3 VIEWS Timmy Henderson MD [address] [place] [address] [place] [address] Referral ID Status Reason Start Date Expiration Date V isits Requested Visits Authorized [id number] Closed Auto-Generate d Referral 07/21/2021 08/20/2022 1 1 [facility] for referral (narrative)No reason for referral information available[facility] Work Phone: Reason for visit Narrative* Diagnostic Procedure Only (Routine) - Closed Specialty Diagnoses / Procedures Referred By Contac t Referred To Contact XR IMAGING Diagnoses Acute hip pain, left Procedures XR HIP GENERAL 3V PELV/AP/LAT LEFT RADEX HIP UNILATERAL WITH PELVIS 2-3 VIEWS Timmy Henderson MD [address] [place] [address] [place] [address] Referral ID Status Reason Start Date Expiration Date V isits Requested Visits Authorized [id number] Closed Auto-Generate d Referral 07/21/2021 08/20/2022 1 1 [facility] Reason for Referral Specialty Diagnoses / Procedures Referred By Contac t Referred To Contact [facility] Diagnoses Acute hip pain, left Procedures CONSULT TO PHYSICAL THERAPY PHYSICAL THERAPY EVALUATION HIGH COMPLEX 45 MINS Timmy Henderson MD [address] [place] [address] [facility] [address] [place] [address] Referral ID Status Reason Start Date Expiration Date Visits Requested Visits Authorized [id number] Authorized PCP Requested Referral Auto-Generate d Referral 07/21/2021 07/21/2022 99 99 Specialty Diagnoses / Procedures Referred By Contac t Referred To Contact XR IMAGING Diagnoses Acute hip pain, left Procedures XR HIP GENERAL 3V PELV/AP/LAT LEFT RADEX HIP UNILATERAL WITH PELVIS 2-3 VIEWS Timmy Henderson MD [address] [place] [address] Xr Imaging Referral ID Status Reason Start Date Expiration Date V isits Requested Visits Authorized [id number] Closed Auto-Generate d Referral 07/21/2021 08/20/2022 1 1 Specialty Diagnoses / Procedures Referred By Contac t Referred To Contact Radiology Diagnoses Atherosclerotic heart disease of [place] coronary artery without angina pectoris Procedures CT cardiac scoring wo IV contrast Tomas Peña, [address] [facility] [address] [place] [address] Referral ID Status Reason Start Date Expiration Date Visits Requested Visits Authorized [id number] Authorized Perform Procedure 3 01/11/2024 1 1 Advance Directives No Advanced Directives Records FoundDocuments on File Type Date Recorded 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 Advance Directive(s) 04/09/2018 12:24 PM Advance Directive(s) 03/27/2018 8:45 AM Documents on File Type Date Recorded 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 Advance Directive(s) 04/09/2018 12:24 PM [...] Documents on File Type Date Recorded 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 Advance Directive(s) 04/09/2018 12:24 PM [...] Documents on File Type Date Recorded 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 Advance Directive(s) 04/09/2018 12:24 PM Advance Directive Response Recorded Date/ Time Advance Directives Yes March 04, 2024 10:45am Family History No Family History Records FoundUnknown [...] nd arthritis- blood clot in lung/pneumonia Status:Active Relationship Condition Age at Onset Recorded Date/T florecita mother Malignant neoplasm Unknown Malignant neoplasm of colon Unknown father Malignant neoplasm Unknown Chief Complaint and Reason for Visit Chief Complaint XRAY NICOTINE DEPENDENCE Chief Complaint SELF REFERRED /JAY JAY ARRHYTHMIA Chief Complaint ABNORMAL LUNG FUNCTI ON ABNORMAL LUNG FUNCTION SMOKER Chief Complaint ABNORMAL LUNG FUNCTI ON ABNORMAL LUNG FUNCTION SMOKER 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 Chief Complaint Admit Date Pacer Check Remote June 03, 2024 2:5 2am NODULE June 06, 2024 12: 20pm 6 M FU August 21, 2024 10:42 am Reason for Visit Admit Date Bradycardia August 21, 2024 10:42 am Presence of cardiac pacemaker August 21, 2024 10:42am Sick sinus syndrome August 21, 2024 10:42 am Chief Complaint Admit Date Pacer Check Remote June 03, 2024 2:5 2am NODULE June 06, 2024 12: 20pm 6 M FU August 21, 2024 10:42 am Pacer Check Remote September 02, 2024 2:51 am Reason for Visit Admit Date Presence of cardiac pacemaker August 21, 2024 10:42am Sick sinus syndrome August 21, 2024 10:42 am Summary Purpose Additional Source Comments Source Comments (unrecognize d section and content) In the event this informatio n is protected by the Federal Confidentiality of Alcohol and Drug Abuse Patient Records regulations: The Federal rules restrict any use of the information to criminally investigate or prosecute any alcohol or drug abuse patient.[facility] ClinicIn the event this information is protected by the Federal Confidentiality of Alcohol and Drug Abuse Patient Records regulations: The Federal rules restrict any use of the information to criminally investigate or prosecute any alcohol or drug abuse patient.[facility] the event this information is protected by the Federal Confidentiality of Alcohol and Drug Abuse Patient Records regulations: The Federal rules restrict any use of the information to criminally investigate or prosecute any alcohol or drug abuse patient.[facility] Hospital[facility] the event this information is protected by the Federal Confidentiality of Alcohol and Drug Abuse Patient Records regulations: The Federal rules restrict any use of the information to criminally investigate or prosecute any alcohol or drug abuse patient.[facility] HospitalIn the event this information is protected by the Federal Confidentiality of Alcohol and Drug Abuse Patient Records regulations: The Federal rules restrict any use of the information to criminally investigate or prosecute any alcohol or drug abuse patient.[facility] Hospital[facility] the event this information is protected by the Federal Confidentiality of Alcohol and Drug Abuse Patient Records regulations: The Federal rules restrict any use of the information to criminally investigate or prosecute any alcohol or drug abuse patient.[facility] HospitalIn the event this information is protected by the Federal Confidentiality of Alcohol and Drug Abuse Patient Records regulations: The Federal rules restrict any use of the information to criminally investigate or prosecute any alcohol or drug abuse patient.[facility] HospitalIn the event this information is protected by the Federal Confidentiality of Alcohol and Drug Abuse Patient Records regulations: The Federal rules restrict any use of the information to criminally investigate or prosecute any alcohol or drug abuse patient.[facility] Reason for Visit (unrecogniz ed section and content) Reason Comments PT Discharge Specialty Diagnoses / Procedures Referred By Contac t Referred To Contact [facility] Diagnoses Acute hip pain, left Procedures CONSULT TO PHYSICAL THERAPY PHYSICAL THERAPY EVALUATION HIGH COMPLEX 45 MINS Timmy Henderson MD [address] [place] [address] [facility] [address] [place] [address] Referral ID Status Reason Start Date Expiration Date Visits Requested Visits Authorized [id number] Authorized PCP Requested Referral Auto-Generate d Referral 07/21/2021 07/21/2022 99 99 Reason Comments Physical Therapy Reason Comments Hip Pain LT x 1 month Reason Comments PT Eval Patient Education Reason Onset Date Comments Population Health Navigation Outreach 06/22/2022 ACO No PCP list Specialty Diagnoses / Procedures Referred By Eliel t Referred To Contact Radiology Diagnoses Atherosclerotic heart disease of [place] coronary artery without angina pectoris Procedures CT cardiac scoring wo IV contrast Tomas Peña DO [address] [facility] [address] [place] [address] Referral ID Status Reason Start Date Expiration Date Visits Requested Visits Authorized [id number] Authorized Perform Procedure 3 01/11/2024 1 1 Care Teams (unrecognized sec tion and content) Team Status: Active Member Role Status Dates Dr. Tomas Peña DO Primary Care Provider Active Team Status: Active Member Role Status Dates Dr. Tomas Peña , Primary Care Provide r, Referring Provider, Other Provider Active Dr. Christiano Phillip , DO Attending Provider Active Team Status: Inactive Member Role Status Dates Dr. 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 Tomas Peña DO Primary Care Provide r, Referring Provider, Other Provider Active Dr. Ankit Ivory MD Attending Provider Active Team Status: Active Member Role Status Dates Dr. Tomas Peña DO Primary Care Provider, Referring P davey Active Dr. 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 Tomas Peña DO Primary Care Provide r, Attending Provider, Referring Provider Active Team Status: Active Member Role/Relationship Status Dates Dr. Tomas Peña DO Primary Care Provider Active Team Status: Inactive Member Role/Relationship Status Dates Dr. Tomas Peña DO Primary Care Provider Active Start: June 03, 2024 End: June 03, 2024 Dr. Ankit Ivory MD Attending Provider Active S tart: June 03, 2024 End: June 03, 2024 Team Status: Inactive Member Role/Relationship Status Dates Dr. Tomas Peña DO Primary Care Provider Active Start: June 06, 2024 End: June 06, 2024 Dr. Tomas Peña DO Attending Provider Active St art: June 06, 2024 End: June 06, 2024 Dr. Tomas Peña DO Referring Provider Active St art: June 06, 2024 End: June 06, 2024 Team Status: Inactive Member Role/Relationship Status Dates Dr. Tomas Peña DO Primary Care Provider Active Start: August 21, 2024 End: August 21, 2024 Dr. Tomas Peña DO Referring Provider Active St art: August 21, 2024 End: August 21, 2024 Mariana Rodriguez PA, PA Attending Provider Active Start: August 21, 2024 End: August 21, 2024 Team Status: Inactive Member Role/Relationship Status Dates Dr. Tomas Peña DO Primary Care Provider Active Start: September 02, 2024 End: September 02, 2024 Dr. Ankit Ivory MD Attending Provider Active S tart: September 02, 2024 End: September 02, 2024 Goals (unrecognized section and content) Goals may be documented in a n alternate sectionGoals may be documented in an alternate sectionGoals may be documented in an alternate sectionGoals may be documented in an alternate sectionGoals may be documented in an alternate sectionGoals may be documented in an alternate sectionGoals may be documented in an alternate section (unrecognized sect ion and content) No Status Records FoundNo Status Records FoundNo Status Records FoundNo Status Records Found INFORMATION SOURCE (unrecogn ized section and content) DATE CREATED AUTHOR 12/07/2021 [facility] DATE CREATED AUTHOR AUTHOR'S ORGANIZ ATION 06/25/2022 [facility] DATE CREATED AUTHOR AUTHOR'S ORGANAMADOR ATION 10/30/2023 [facility] DATE CREATED AUTHOR AUTHOR'S ORGANIZ ATION 12/24/2024 [facility] FOR RECORDS PERTAINING TO PATIENTS WHO ARE [...] BE BASED ON THE PRIMARY CLINICAL RECORDS. [employer] provides no warranty or guarantee of the accuracy or completeness of information in this document.
== END | disposition home or self-care (01) ==
LOC: CVS 14:45
PROVIDERS: PCP Internal Medicine; Referring Provider Internal Medicine; Visit Provider Internal Medicine
DX: I65.23 Occlusion and stenosis of bilateral carotid arteries (principal)
CPT/HCPCS: 93880

== ENCOUNTER → 2025-01-30 | Outpatient (CLI) | payer MEDICARE, OTHER, SELFPAY ==
[2025-01-30 16:06] LABS: AST(SGOT) 58 U/L (<=37); Alanine Aminotransfer ALT/SGPT 65 U/L (<=46); Albumin, Serum 4.5 g/dL (3.4-4.8); Alkaline Phosphatase 110 U/L (40-129); Bilirubin, Direct 0.19 mg/dL (0.00-0.30); Globulin 3.6 g/dL (2.2-4.2)
[2025-01-30 16:11] LABS: CRP < 3.00 mg/L (0.0-3.0)
[2025-02-03 12:08] LABS: ANTINUCLEAR ANTIBODIES DIRECT Positive (Negative)
== END | disposition home or self-care (01) ==
LOC: CIMLAB 13:19
PROVIDERS: PCP Internal Medicine; Referring Provider Internal Medicine; Visit Provider Internal Medicine
DX: M25.50 Pain in unspecified joint (principal); R74.01 Elevation of levels of liver transaminase levels
CPT/HCPCS: 36415; 80076; 85652; 86038; 86140

== ENCOUNTER → 2025-02-10 | Outpatient (CLI) | payer MEDICARE, OTHER, SELFPAY ==
--- NOTE | 2025-02-10 09:37 | US_ITS ---
PROCEDURE: ABDOMEN LIMITED 02/10/2025 REASON FOR EXAM: ULTRASOUND, LIVER. Elevated liver enzymes. TECHNIQUE: Procedure Code: USABDL Modality: US Procedure: ABDOMEN LIMITED FINDINGS: Liver measures 15.2 cm in greatest dimension with normal echogenicity, no cyst or mass. Shadowing calcification in the left lobe measures 4 mm. No intrahepatic or extrahepatic biliary ductal dilation. Normal hepatopetal flow in the portal vein. Color flow in the hepatic artery. Normal-sized nontender thin-walled anechoic gallbladder. Echogenic pancreas, possibly fatty infiltration, otherwise unremarkable. Right kidney measures 11.0 x 5.7 x 5.8 cm. No cortical thinning. Inferior medial cyst measures 8 mm. Midpole calculus measures 4 mm in greatest dimension. Lower pole calculus measures 8 mm in greatest dimension. US/Abdomen Limited IMPRESSION: 8 mm in 4 mm right renal calculi, without definite obstruction or hydronephrosi s. Echogenic pancreas suggesting possible fatty infiltration. Nonspecific 4 mm left lobe hepatic calcification. Reading Location: [place]
== END | disposition home or self-care (01) ==
LOC: US 09:34
PROVIDERS: PCP Internal Medicine; Referring Provider Internal Medicine; Visit Provider Internal Medicine
DX: R94.5 Abnormal results of liver function studies (principal)
CPT/HCPCS: 76705